=== PATIENT | male | born 1930 | race Caucasian/White ===

== ENCOUNTER → 2016-07-24 | Day surgery (SDC) | payer MEDICARE, OTHER ==
[~2016-07-24] MED LIST: ASCO500C PO; ASPI81TA82 PO; BUME1TAB PO; CALC0.25 PO; COZA100T PO; GENTAMICIN SULFATE 80 MG/2 ML VIAL ONE; GLUC10TA3 PO; HYDR100T2 PO; ISOS30TA3 PO; LACTATED RINGER'S 1000 ML INJ 1,000 ML ONE; NIAC250C6 PO; NS 100 ML (PAB BAG) 100 ML IV ONE; ONDANSETRON HCL 4 MG/2 ML VIAL IV PUSH ONE; POTA20IN3 PO; PROPOFOL 200 MG/20 ML AMP IV ONE; STERILE WATER FOR INJ 20 ML VIAL ONE; TAB-TAB PO; Z.0.OXYGENDME NC; mitoMYcin 5 MG VIAL ONE
--- NOTE | 2016-07-24 11:45 | TN ---
cc: SONG MENDEZ M.D. DATE OF SURGERY: 07/24/2016 PREOPERATIVE DIAGNOSIS Recurrent bladder cancer (ICD - 10 code C67.3) POSTOPERATIVE DIAGNOSIS 1. Procedure was cystourethroscopy with transurethral resection of bladder tumor (TURBT) second (CPT code 40305) 2. Intravesical placement of mitomycin C chemotherapy (CPT code 71726). INDICATION Mr. Sebastian is a 86-year-old gentleman recurrent bladder cancer on surveillance cystoscopy recent was found to have a suspicious lesion presents now for resection and intravesical chemotherapy consisting of mitomycin C. FINDINGS: The urethra shows multiple mild and moderate concentric strictures throughout mostly in the bulbous and bulbar membranous urethra. The prostatic urethra shows bilateral hyperplasia with moderate obstruction elevated bladder neck. The bladder neck itself is elevated hypertrophic and closed in the trigone shows a right ureteral orifice normal size, shape position. The left was previously resected but is effluxing clear urine as is the right. There is clearly multiple previous scars and distortion of some of the normal anatomy of the bladder from his previous resections. He has moderate trabeculation with diverticula and then there is the area of concern is a sessile lesion just inside the bladder neck at about the 2 to 3 o'clock position in the anterior bladder wall. It extends down laterally, just toward the trigone itself fairly large area of concern. No additional tanner papillary tumors or other suspicious mucosa identified. The procedure as well as risks and benefits were explained to the patient. Informed consent was obtained the patient was taken major operative theater where he was placed in supine position. The patient was identified as well as the operative site. A universal time-out was performed in standard fashion. At this time general anesthetic and prophylactic intravenous antibiotics consisting of gentamicin 80 mg was administered after adequate anesthetic he is placed in low dorsolithotomy position with a mild Trendelenburg, prepped and draped usual sterile fashion. At this time a 22.5 Indonesian cystoscope with a 30 lens was inserted urethra and bladder. A 30 lens was exchanged for 70 lens the entire bladder was systematically surveyed with the above findings. At this time the cystoscope was removed and a 27-Indonesian Carney resectoscope with a right angle loop was placed under direct vision into the bladder traversing the strictured areas with minimal difficulty. At this time using normal saline in the gyrus system transurethral resection of the suspicious areas and tumor was removed in standard fashion. Care was taken to the appropriate depth but not to perforate the bladder. Care was also taken not to come in close proximity to the ureteral orifice on the left which was relatively close to the area of resection. After confirming hemostasis and an fulgurating the base of the lesions with the coagulation mode of the gyrus system and confirming integrity of the bladder and no active bleeding the resectoscope was removed and a 16-Indonesian Fragoso catheter was placed without difficulty. The bladder was emptied and then the mitomycin C intravesical chemotherapy was administered in standard fashion with a 40 mg of mitomycin and 20 cc of sterile water. It was capped, this will be kept in and the recovery room for 1 hour changing positions every 15 minutes and then to be drained and removed prior to discharge. At this time after placement the patient was placed back in supine position, emerged from anesthetic without difficulty transferred to the recovery room to be discharged home after the chemotherapy dwell time 1 hour and to be discharged home without a catheter after voiding. MD JAY JAY [place]/flora /11:11 AM /11:38 AM
== END | disposition home or self-care (01) ==
LOC: ESDC 08:41
PROVIDERS: ATTEND Urology
DX: C67.3 Malignant neoplasm of anterior wall of bladder (principal)
CPT/HCPCS: 00910; 00912; 51720; 52234; 88307; J1580; J2405; J3010; J7120; J9280

== ENCOUNTER 2017-07-22 18:00 | Inpatient (IN) | payer MEDICARE, OTHER ==
[~2017-07-22] VITALS: Ht 182.9 cm; Wt 122.3 kg
[~2017-07-22 18:00] MED LIST changes: -GENTAMICIN SULFATE 80 MG/2 ML VIAL ONE; -LACTATED RINGER'S 1000 ML INJ 1,000 ML ONE; -NS 100 ML (PAB BAG) 100 ML IV ONE; -ONDANSETRON HCL 4 MG/2 ML VIAL IV PUSH ONE; -PROPOFOL 200 MG/20 ML AMP IV ONE; -STERILE WATER FOR INJ 20 ML VIAL ONE; -mitoMYcin 5 MG VIAL ONE
[2017-07-22 18:03] VITALS: BP 123/55; PULSE 67; RESP 32; TEMP 98.7; O2SAT 88
[2017-07-22] MEDS ORDERED: RESP: ALBUTEROL 2.5 MG/IPRATROPIUM 0.5 MG NEB (PRN) ONE (18:05)
[2017-07-22] MEDS ORDERED: DEXTROSE 50% IN WATER 50 ML SYRINGE ONE (18:05)
[2017-07-22] MEDS ORDERED: SODIUM CHLORIDE 0.9% FLUSH 10 ML FLUSH IVF PRN (18:15)
[2017-07-22] MEDS ORDERED: RESP: ALBUTEROL 2.5 MG/3 ML NEB (SCH) INH (18:15)
[2017-07-22] MEDS ORDERED: FUROSEMIDE 40 MG/4 ML VIAL IVP ONE (18:15)
[2017-07-22] MEDS ORDERED: DEXTROSE 50% IN WATER 50 ML SYRINGE IV PUSH ONE (18:15)
--- NOTE | 2017-07-22 18:26 | PD ---
HPI Chief Complaint: Respiratory Symptoms Time Seen by Provider: 18:11 Travel History International Travel<30 days: No Contact w/Intl Traveler<30days: No Traveled to known affect area: No History of Present Illness HPI 87-year-old male came to the emergency room brought by EMS for respiratory distress. Patient was getting his dialysis done at [facility] when he started developing shortness of breath. When EMS arrived his oxygen saturation was in the mid 80s. They also checked his blood sugar was in the 60s. They started giving him D10. Put him on a nonrebreather and brought him to the emergency room. Upon arrival patient appeared to be lethargic but was answering questions to some extent appropriately. He knew he was in [place]. Bedside blood sugar after arrival was 65. Oxygen saturation was 88% on room air. Patient appeared to be having difficulty breathing. He denied of any chest pain. [facility] Past Medical History Narrative Medical List of his past medical, surgical, social and family history is reviewed from the nursing note. Hx Anticoagulant Therapy: Yes (WARFARIN, ASA 81 MG DAILY) Arthritis: Yes Asthma: No Heart Rhythm Problems: No Cancer: Yes (bladder) Cardiomyopathy: Yes Cardiovascular Problems: Yes High Cholesterol: Yes Chemotherapy: Yes Chest Pain: No Congestive Heart Failure: Yes COPD: No Cerebrovascular Accident: No Coronary Artery Disease: Yes Diabetes: Yes Patient Takes Glucophage: No Dialysis: Yes (M-W-F) Diminished Hearing: Yes Endocrine: Yes GERD: No Genitourinary: Yes (RENAL INSUFICIENCY, bladder CX) Hiatal Hernia: No Hypertension: Yes Immune Disorder: No Implanted Vascular Access Dvce: Yes Kidney Stones: No Musculoskeletal: Yes Neurologic: No Psychiatric: No Reproductive: No Respiratory: Yes Migraines: No Radiation Therapy: No Renal Failure: Yes Seizures: No Sleep Apnea: Yes Thyroid Disease: No Ulcer: No Influenza Vaccination: Yes Past Surgical History AICD: Yes (medtronic) Cardiac Surgery: Yes (PACEMAKER) Eye Surgery: Yes (BILATERAL "FLUID REPLACEMENT" ) Insulin Pump: No Joint Replacement: Yes (left knee) Pacemaker: Yes Social History Alcohol Use: Yes (OCCASIONAL) Tobacco Use: Yes (3 CIGARS/DAY) Substance Use: No Allergies-Medications (Allergen,Severity, Reaction): Coded Allergies: No Known Allergies (Unverified , 04/11/16) Comments No known drug allergies. Reported Meds & Prescriptions Reported Meds & Active Scripts Active Oxygen (O2) (Z.0.oxygendme) Device 2 L NC CONTINUOUS Oxygen Concentrator Portable Gaseous 2 L/min via Nasal Cannula Continuous For 99 months Bumetanide 1 Mg Tab 1 Mg PO BID 30 Days Reported Cozaar (Losartan Potassium) 100 Mg Tab 100 Mg PO DAILY Cozaar (Losartan Potassium) 100 Mg Tab 100 Mg PO DAILY Vitamin C (Ascorbic Acid) 500 Mg Cap 500 Mg PO DAILY Niacin 250 Mg Cap 500 Mg PO ONCE Multivitamin (Multivitamins) 1 Tab Tab 1 Tab PO DAILY Hydralazine HCl 100 Mg Tab 100 Mg PO BID Aspir-81 (Aspirin) 81 Mg Tab 81 Mg PO DAILY Glipizide 10 Mg Tab 10 Mg PO DAILY Calcitriol 0.25 Mcg Cap 0.25 Mcg PO DAILY Potassium Chloride inj (Potassium Chloride) 20 Meq Tab 1 Tab PO DAILY Isosorbide Mononitrate Er (Isosorbide Mononitrate) 30 Mg Tab 30 Mg PO DAILY Narrative Medication List of his home medications reviewed from the nursing note. Review of Systems Except as stated in HPI: all other systems reviewed are Neg Respiratory: Positive: Shortness of Breath Physical Exam Narrative GENERAL: Lethargic but answering questions somewhat appropriately, moderate distress SKIN: Focused skin assessment warm/dry. Pale HEAD: Atraumatic. Normocephalic. EYES: Pupils equal and round. No scleral icterus. No injection or drainage. ENT: No nasal bleeding or discharge. Mucous membranes pink and moist. NECK: Trachea midline. No JVD. CARDIOVASCULAR: Regular rate and rhythm. No murmur appreciated. RESPIRATORY: Respiratory distress, using accessory muscles for breathing. Tachypnea GASTROINTESTINAL: Abdomen soft, non-tender, nondistended. Hepatic and splenic margins not palpable. : Circumcised, blood at the meatus MUSCULOSKELETAL: No obvious deformities. No clubbing. No cyanosis. No edema. NEUROLOGICAL: Lethargic but answering questions. No obvious cranial nerve deficits. Motor grossly within normal limits. Slurred speech. PSYCHIATRIC: Appropriate mood and affect; insight and judgment normal. Data Data Last Documented VS Vital Signs Date Time Temp Pulse Resp B/P (MAP) Pulse Ox O2 Delivery O2 Flow Rate FiO2 07/22/17 20:00 62 35 113/53 (73) 99 Simple Mask 5.00 07/22/17 18:03 98.7 Orders Orders Dextrose 50% In Chevy (Syr) Inj (D50w (Syr (07/22/17 18:05) Albuterol-Ipratropium Neb (Duoneb Neb) (07/22/17 18:05) Complete Blood Count With Diff (07/22/17 18:12) Basic Metabolic Panel (Bmp) (07/22/17 18:12) Prothrombin Time / Inr (Pt) (07/22/17 18:12) Troponin I (07/22/17 18:12) Arterial Blood Gas (Abg) (07/22/17 18:12) Urinalysis - C+S If Indicated (07/22/17 18:12) Iv Access Insert/Monitor (07/22/17 18:12) Electrocardiogram (07/22/17 18:12) Ecg Monitoring (07/22/17 18:12) Oximetry (07/22/17 18:12) Oxygen Administration (07/22/17 18:12) Chest, Single Ap (07/22/17 18:12) Sodium Chloride 0.9% Flush (Ns Flush) (07/22/17 18:15) Furosemide Inj (Lasix Inj) (07/22/17 18:15) Albuterol Neb (Albuterol Neb) (07/22/17 18:15) Dextrose 50% In [place]vy (Syr) Inj (D50w (Syr (07/22/17 18:15) Lactic Acid (07/22/17 18:54) Blood Culture (07/22/17 18:54) Piperacil-Tazo 4.5 Gm Premix (Zosyn 4.5 (07/22/17 19:00) Vancomycin Inj (Vancomycin Inj) (07/22/17 19:00) Ct Pulmonary Angiogram (07/22/17 ) Iohexol 350 Inj (Omnipaque 350 Inj) (07/22/17 20:20) Sodium Chlor 0.9% 1000 Ml Inj (Ns 1000 M (07/22/17 20:45) Admit Order (Ed Use Only) (07/22/17 ) Labs Laboratory Tests Test 07/22/17 18:25 07/22/17 19:08 07/22/17 19:20 White Blood Count 21.0 TH/MM3 Red Blood Count 2.99 MIL/MM3 Hemoglobin 8.9 GM/DL Hematocrit 27.8 % Mean Corpuscular Volume 92.8 FL Mean Corpuscular Hemoglobin 29.6 PG Mean Corpuscular Hemoglobin Concent 31.9 % Red Cell Distribution Width 18.8 % Platelet Count 165 TH/MM3 Mean Platelet Volume 7.5 FL Neutrophils (%) (Auto) 92.3 % Lymphocytes (%) (Auto) 1.4 % Monocytes (%) (Auto) 6.2 % Eosinophils (%) (Auto) 0.0 % Basophils (%) (Auto) 0.1 % Neutrophils # (Auto) 19.4 TH/MM3 Lymphocytes # (Auto) 0.3 TH/MM3 Monocytes # (Auto) 1.3 TH/MM3 Eosinophils # (Auto) 0.0 TH/MM3 Basophils # (Auto) 0.0 TH/MM3 CBC Comment DIFF FINAL Differential Comment Prothrombin Time 15.4 SEC Prothromb Time International Ratio 1.5 RATIO Blood Urea Nitrogen 28 MG/DL Creatinine 4.23 MG/DL Random Glucose 128 MG/DL Calcium Level 8.2 MG/DL Sodium Level 139 MEQ/L Potassium Level 5.2 MEQ/L Chloride Level 107 MEQ/L Carbon Dioxide Level 18.6 MEQ/L Anion Gap 13 MEQ/L Estimat Glomerular Filtration Rate 13 ML/MIN Troponin I 1.78 NG/ML Blood Gas Puncture Site RT BRACHIAL Blood Gas Patient Temperature 98.6 Blood Gas HCO3 12 mmol/L Blood Gas Base Excess -11.0 mmol/L Blood Gas Oxygen Saturation 92 % Arterial Blood pH 7.49 Arterial Blood Partial Pressure CO2 16 mmHg Arterial Blood Partial Pressure O2 72 mmHG Arterial Blood Oxygen Content 11.4 Vol % Arterial Blood Carboxyhemoglobin 2.2 % Arterial Blood Methemoglobin 0.6 % Blood Gas Hemoglobin 8.7 G/DL Oxygen Delivery Device NASAL CANNULA Blood Gas Liter Flow 3 L/M Lactic Acid Level 11.7 mmol/L MDM Medical Decision Making Medical Screen Exam Complete: Yes Emergency Medical Condition: Yes Medical Record Reviewed: Yes Interpretation(s) Twelve-lead EKG was reviewed by me. Paced rhythm. Heart rate of 60 bpm. Differential Diagnosis COPD exacerbation, pulmonary edema, pneumonia Narrative Course 6:26 PM awaiting for the blood test result. Patient was given 2 breathing treatments and a dose of Lasix IV. He was also given D50. Patient will need to be admitted. Case will be signed over to the oncoming ER physician. 7 PM case has been signed over to the oncoming ER physician. However CBC result came back and patient has significant leukocytosis. Based on the altered mental status and hypoglycemia I decided to cover him with antibiotic as per sepsis protocol. IV Zosyn and vancomycin has been ordered. Critical Care Narrative Aggregate critical care time was 30 minutes. Time to perform other separately billable procedures was not included in the critical care time. My time did not include minutes spent treating any other patients simultaneously or on activities that did not directly contribute to the patient's treatment. The services I provided to this patient were to treat and/or prevent clinically significant deterioration that could result in: Respiratory distress, altered mental status, sepsis, hypoglycemia I provided critical care services requiring my management, as noted below: Chart data review, documentation time, medication orders and management, vital sign assessments/reviewing monitor data, ordering and reviewing lab tests, ordering and interpreting/reviewing x-rays and diagnostic studies, care of the patient and discussion of the patient with the admitting physicians. Procedures EKG Prior to Arrival: Laura Sewell MD Jul 22, 2017 18:26
[2017-07-22 18:49] LABS: AUTOMATED NEUTROPHIL # 19.4 TH/MM3 (1.8-7.7); BASOPHIL % 0.1 % (0.0-2.0); HEMATOCRIT 27.8 % (39.0-51.0); HEMOGLOBIN 8.9 GM/DL (13.0-17.0); LYMPH % 1.4 % (9.0-44.0); LYMPHOCYTE # 0.3 TH/MM3 (1.0-4.8); MEAN CELL VOLUME 92.8 FL (80.0-100.0); MEAN CORPUSCULAR HEMOGLOBIN 29.6 PG (27.0-34.0); MEAN CORPUSCULAR HGB CONC 31.9 % (32.0-36.0); MEAN PLATELET VOLUME 7.5 FL (7.0-11.0); MONO % 6.2 % (0.0-8.0); MONOCYTE # 1.3 TH/MM3 (0-0.9); NEUT % 92.3 % (16.0-70.0); PLATELET COUNT 165 TH/MM3 (150-450); RED BLOOD COUNT 2.99 MIL/MM3 (4.50-5.90); RED CELL DISTRIBUTION WIDTH 18.8 % (11.6-17.2)
--- NOTE | 2017-07-22 18:52 | RADRPT ---
EXAM DATE/TIME: 07/22/2017 18:31 [facility] COMPARISON: No previous studies available for comparison. INDICATIONS : Short of breath. MEDICAL HISTORY : SURGICAL HISTORY : Pacemaker. ENCOUNTER: Initial ACUITY: 1 day PAIN SCORE: 0/10 LOCATION: Bilateral chest FINDINGS: A single view of the chest demonstrates a left subclavian multi-lead pacer. The heart is enlarged. Th ere is mild lung volume loss bilaterally. I do not see focal infiltrate.. Osseous structures are int act. CONCLUSION: Left subclavian bipolar pacer. The heart is enlarged. Lungs are clear. Cole Leach MD on July 22, 2017 at 18:49 Board Certified Radiologist. This report was verified electronically.
[2017-07-22 18:57] LABS: INTERNATIONAL NORMALIZED RATIO 1.5 RATIO; PROTHROMBIN TIME - PATIENT 15.4 SEC (9.8-11.6)
[2017-07-22] MEDS ORDERED: PIPERACIL-TAZO 4.5 GM PREMIX 100 ML IV ONE (19:00)
[2017-07-22] MEDS ORDERED: VANCOMYCIN INJ 1,000 MG in SODIUM CHLOR 0.9% 250 ML INJ 250 ML IV ONE (19:00)
[2017-07-22 19:18] LABS: BICARBONATE 18.6 MEQ/L (21.0-32.0); CALCIUM 8.2 MG/DL (8.5-10.1); CREATININE 4.23 MG/DL (0.60-1.30)
[2017-07-22 19:31] LABS: TROPONIN I 1.78 NG/ML (0.02-0.05)
[2017-07-22 20:00] VITALS: BP 113/53; PULSE 62; RESP 35; O2SAT 99
[2017-07-22] MEDS ORDERED: IOHEXOL 350 MG/ML 10 ML VIAL (for RAD DIAG) IVCONTRAST ONE (20:20)
--- NOTE | 2017-07-22 20:32 | RADRPT ---
EXAM DATE/TIME: 07/22/2017 20:01 [facility] COMPARISON: No previous studies available for comparison. INDICATIONS : Shortness of breath today. IV CONTRAST: 61 cc Omnipaque 350 (iohexol) IV RADIATION DOSE: 10.81 CTDIvol (mGy) MEDICAL HISTORY : Hypertension. diabetes SURGICAL HISTORY : Pacemaker. ENCOUNTER: Initial ACUITY: 1 day PAIN SCALE: 0/10 LOCATION: Bilateral chest TECHNIQUE: Volumetric scanning of the chest was performed using a pulmonary embolism protocol MIP images were re constructed. Using automated exposure control and adjustment of the mA and/or kV according to patien t size, radiation dose was kept as low as reasonably achievable to obtain optimal diagnostic quality images. DICOM format image data is available electronically for review and comparison. Follow-up recommendations for detected pulmonary nodules are based at a minimum on nodule size and pa tient risk factors according to Fleischner Society Guidelines. FINDINGS: PULMONARY ARTERIES: No filling defects are seen in the pulmonary arteries through the segmental level. LUNGS: There is no consolidation or pneumothorax . No concerning pulmonary nodule is visualized. Mild adjac ent passive atelectasis PLEURAE: There is no pleural thickening. Small bilateral pleural effusions. MEDIASTINUM: There is good visualization of the great vessels of the middle mediastinum. A few prominent mediastin al lymph nodes without any definite pathologic enlargement. MUSCULOSKELETAL: Within normal limits for patient age. MISCELLANEOUS: The visualized upper abdominal organs demonstrate no acute abnormality. CONCLUSION: No evidence of pulmonary embolism. Small bilateral pleural effusions. Cole Leach MD on July 22, 2017 at 20:29 Board Certified Radiologist. This report was verified electronically.
[2017-07-22] MEDS ORDERED: SODIUM CHLOR 0.9% 1000 ML INJ 1,000 ML IV ONE ×3 (20:45→21:04)
--- NOTE | 2017-07-22 20:49 | PD ---
Data Data Last Documented VS Vital Signs Date Time Temp Pulse Resp B/P (MAP) Pulse Ox O2 Delivery O2 Flow Rate FiO2 07/22/17 20:00 62 35 113/53 (73) 99 Simple Mask 5.00 07/22/17 18:03 98.7 Orders Orders Dextrose 50% In Cehvy (Syr) Inj (D50w (Syr (07/22/17 18:05) Albuterol-Ipratropium Neb (Duoneb Neb) (07/22/17 18:05) Complete Blood Count With Diff (07/22/17 18:12) Basic Metabolic Panel (Bmp) (07/22/17 18:12) Prothrombin Time / Inr (Pt) (07/22/17 18:12) Troponin I (07/22/17 18:12) Arterial Blood Gas (Abg) (07/22/17 18:12) Urinalysis - C+S If Indicated (07/22/17 18:12) Iv Access Insert/Monitor (07/22/17 18:12) Electrocardiogram (07/22/17 18:12) Ecg Monitoring (07/22/17 18:12) Oximetry (07/22/17 18:12) Oxygen Administration (07/22/17 18:12) Chest, Single Ap (07/22/17 18:12) Sodium Chloride 0.9% Flush (Ns Flush) (07/22/17 18:15) Furosemide Inj (Lasix Inj) (07/22/17 18:15) Albuterol Neb (Albuterol Neb) (07/22/17 18:15) Dextrose 50% In Chevy (Syr) Inj (D50w (Syr (07/22/17 18:15) Lactic Acid (07/22/17 18:54) Blood Culture (07/22/17 18:54) Piperacil-Tazo 4.5 Gm Premix (Zosyn 4.5 (07/22/17 19:00) Vancomycin Inj (Vancomycin Inj) (07/22/17 19:00) Ct Pulmonary Angiogram (07/22/17 ) Iohexol 350 Inj (Omnipaque 350 Inj) (07/22/17 20:20) Sodium Chlor 0.9% 1000 Ml Inj (Ns 1000 M (07/22/17 20:45) Admit Order (Ed Use Only) (07/22/17 ) Labs Laboratory Tests Test 07/22/17 18:25 07/22/17 19:08 07/22/17 19:20 White Blood Count 21.0 TH/MM3 Red Blood Count 2.99 MIL/MM3 Hemoglobin 8.9 GM/DL Hematocrit 27.8 % Mean Corpuscular Volume 92.8 FL Mean Corpuscular Hemoglobin 29.6 PG Mean Corpuscular Hemoglobin Concent 31.9 % Red Cell Distribution Width 18.8 % Platelet Count 165 TH/MM3 Mean Platelet Volume 7.5 FL Neutrophils (%) (Auto) 92.3 % Lymphocytes (%) (Auto) 1.4 % Monocytes (%) (Auto) 6.2 % Eosinophils (%) (Auto) 0.0 % Basophils (%) (Auto) 0.1 % Neutrophils # (Auto) 19.4 TH/MM3 Lymphocytes # (Auto) 0.3 TH/MM3 Monocytes # (Auto) 1.3 TH/MM3 Eosinophils # (Auto) 0.0 TH/MM3 Basophils # (Auto) 0.0 TH/MM3 CBC Comment DIFF FINAL Differential Comment Prothrombin Time 15.4 SEC Prothromb Time International Ratio 1.5 RATIO Blood Urea Nitrogen 28 MG/DL Creatinine 4.23 MG/DL Random Glucose 128 MG/DL Calcium Level 8.2 MG/DL Sodium Level 139 MEQ/L Potassium Level 5.2 MEQ/L Chloride Level 107 MEQ/L Carbon Dioxide Level 18.6 MEQ/L Anion Gap 13 MEQ/L Estimat Glomerular Filtration Rate 13 ML/MIN Troponin I 1.78 NG/ML Blood Gas Puncture Site RT BRACHIAL Blood Gas Patient Temperature 98.6 Blood Gas HCO3 12 mmol/L Blood Gas Base Excess -11.0 mmol/L Blood Gas Oxygen Saturation 92 % Arterial Blood pH 7.49 Arterial Blood Partial Pressure CO2 16 mmHg Arterial Blood Partial Pressure O2 72 mmHG Arterial Blood Oxygen Content 11.4 Vol % Arterial Blood Carboxyhemoglobin 2.2 % Arterial Blood Methemoglobin 0.6 % Blood Gas Hemoglobin 8.7 G/DL Oxygen Delivery Device NASAL CANNULA Blood Gas Liter Flow 3 L/M Lactic Acid Level 11.7 mmol/L [facility] Supervised Visit with THEODORE: No Narrative Course Patient care assumed from Dr. Hardy at 1900, this is an 87-year-old diabetic high blood pressure male who presents the emergency department for evaluation of respiratory distress. According to his son who is at the bedside the patient started having severe respiratory distress earlier today, he went for his regular scheduled dialysis and despite having his normal dialysis session and fluid removed the patient remained tachypneic and slightly altered, EMS was therefore called from the dialysis center. The blood glucose was somewhat decreased in the 60s the patient received D10 prior to arrival, D50 1 arrival to the emergency department. This seemed to improve his mental status. On my examination the patient is tachypneic with increased work of breathing, and ABG shows respiratory alkalosis with compensatory metabolic acidosis. Patient has a lactic acid Nexus of 11. He does appear dry and a liter of normal saline was ordered. Artery had vancomycin and Zosyn ordered by Dr. Hardy. Chest x-ray was negative UA still pending at this time. His abdomen is completely benign, a CT PE protocol was added after discussion with Dr. Hardy and showed no acute pulmonary embolism and no obvious consolidation. Patient appears septic despite having no fever. Possible sources or bacteremia secondary to hemodialysis, urinary tract infection. Patient given a liter of fluid, however more aggressive fluid resuscitation could be dangerous in this patient who is dialysis dependent. His son does not know if he makes urine at baseline. He does have a history of bladder cancer and some blood was noted at the urethral meatus. Patient is moving all 4 extremities, no obvious cranial nerve abnormality. Patient will be discussed with Dr. Almendarez for admission to the ICU, patient is critically ill and prognosis is guarded. Diagnosis Primary Impression: Sepsis Additional Impressions: Elevated troponin Acute respiratory failure with hypoxia Severe sepsis Pleural effusion Lactic acidosis Admitting Information Admitting Physician Requests: Admit Condition: Critical Guilherme Burton MD Jul 22, 2017 20:49
--- NOTE | 2017-07-22 21:01 | HHI.HP ---
HPI Service Critical Care Medicine Primary Care Physician Bharathi Mcdowell MD Admission Diagnosis Sepsis, Lactic acidosis, hypoxic respiratory failure. Diagnosis: Travel History International Travel<30 Days: No Contact w/Intl Traveler <30 Da: No Traveled to Known Affected Are: No History of Present Illness 87-year-old very pleasant gentleman presents for respiratory distress. Patient was getting his dialysis done at [facility] when he started developing shortness of breath. When EMS arrived his oxygen saturation was in the mid 80s. They also checked his blood sugar was in the 60s. They started giving him D10. Put him on a nonrebreather and brought him to the emergency room. Upon arrival patient appeared to be lethargic but was answering questions to some extent appropriately. Bedside blood sugar after arrival was 65. Oxygen saturation was 88% on room air. His mental status somewhat improved after IV glucose insertion , however he remains tachypneic. The CT angiogram of the chest ruled out acute pulmonary embolism, and other acute respiratory disorder. The CT of the abdomen shows severe hydronephrosis with a mass at the urethral vesicular junction and hydroureter. Patient is on Coumadin at home however neither him nor his son are aware why. He also had a permanent pacemaker placed 6 months ago. Review of Systems Constitutional: COMPLAINS OF: Diaphoretic episodes, Fatigue, Dizziness, DENIES : Fever, Weight gain, Weight loss, Chills, Change in appetite, Night Sweats Endocrine: DENIES: Heat/cold intolerance, Polydipsia, Polyuria, Polyphagia Eyes: DENIES: Blurred vision, Diplopia, Eye inflammation, Eye pain, Vision loss , Photosensitivity, Double Vision Ears, nose, mouth, throat: DENIES: Tinnitus, Hearing loss, Vertigo, Nasal discharge, Oral lesions, Throat pain, Hoarseness, Ear Pain, Running Nose, Epistaxis, Sinus Pain, Toothache, Odynophagia Respiratory: COMPLAINS OF: Shortness of breath, DENIES: Apneas, Cough, Snoring , Wheezing, Hemoptysis, Sputum production Cardiovascular: DENIES: Chest pain, Palpitations, Syncope, Dyspnea on Exertion , PND, Lower Extremity Edema, Orthopnea, Claudication Gastrointestinal: DENIES: Abdominal pain, Black stools, Bloody stools, Constipation, Diarrhea, Nausea, Vomiting, Difficulty Swallowing, Anorexia Genitourinary: DENIES: Sexual dysfunction, Urinary frequency, Urinary incontinence, Urgency, Hematuria, Dysuria, Nocturia, Penile Discharge, Testicular Pain, Testicular Swelling Musculoskeletal: DENIES: Joint pain, Muscle aches, Stiffness, Joint Swelling, Back pain, Neck pain Integumentary: DENIES: Abnormal pigmentation, Nail changes, Pruritus, Rash Hematologic/lymphatic: DENIES: Bruising, Lymphadenopathy Immunologic/allergic: DENIES: Eczema, Urticaria Neurologic: COMPLAINS OF: Abnormal gait, Poor Balance, DENIES: Headache, Localized weakness, Paresthesias, Seizures, Speech Problems, Tremor Psychiatric: DENIES: Anxiety, Confusion, Mood changes, Depression, Hallucinations, Agitation, Suicidal Ideation, Homicidal Ideation, Delusions Past Family Social History Allergies: Coded Allergies: No Known Allergies (Unverified , 04/11/16) Past Medical History Hypertension Hyperlipidemia End-stage renal disease on dialysis Permanent pacemaker in place Tobacco use Diabetes mellitus Past Surgical History Cataract surgery Permanent pacemaker placement Bladder surgery for recurrent cancer 8 Right knee replacement Reported Medications Reported Meds & Active Scripts Active Oxygen (O2) (Z.0.oxygendme) Device 2 L NC CONTINUOUS Oxygen Concentrator Portable Gaseous 2 L/min via Nasal Cannula Continuous For 99 months Bumetanide 1 Mg Tab 1 Mg PO BID 30 Days Reported Cozaar (Losartan Potassium) 100 Mg Tab 100 Mg PO DAILY Cozaar (Losartan Potassium) 100 Mg Tab 100 Mg PO DAILY Vitamin C (Ascorbic Acid) 500 Mg Cap 500 Mg PO DAILY Niacin 250 Mg Cap 500 Mg PO ONCE Multivitamin (Multivitamins) 1 Tab Tab 1 Tab PO DAILY Hydralazine HCl 100 Mg Tab 100 Mg PO BID Aspir-81 (Aspirin) 81 Mg Tab 81 Mg PO DAILY Glipizide 10 Mg Tab 10 Mg PO DAILY Calcitriol 0.25 Mcg Cap 0.25 Mcg PO DAILY Potassium Chloride inj (Potassium Chloride) 20 Meq Tab 1 Tab PO DAILY Isosorbide Mononitrate Er (Isosorbide Mononitrate) 30 Mg Tab 30 Mg PO DAILY Active Ordered Medications Current Medications Medications (Trade) Dose Ordered Sig/Juan Diego Route PRN Reason Start Time Stop Time Status Last Admin Dose Admin Aspirin (Aspirin Chew) 81 mg DAILY PO 07/23/17 09:00 Bumetanide (Bumetanide) 1 mg BID PO 07/23/17 09:00 Calcitriol (Rocaltrol) 0.25 mcg DAILY PO 07/23/17 09:00 Multivitamins (Theragran) 1 tab DAILY PO 1/9/18 09:00 Ascorbic Acid (Vitamin C) 500 mg DAILY PO 07/23/17 09:00 Sodium Chloride 1,000 ml @ 84 mls/hr [id number] IV 07/22/17 21:04 Sodium Chloride (NS Flush) 2 ml UNSCH PRN IV FLUSH FLUSH AFTER USING IV ACCESS 07/22/17 21:15 Sodium Chloride (NS Flush) 2 ml BID IV FLUSH 07/23/17 09:00 Acetaminophen (Tylenol) 650 mg Q6H PRN PO PAIN 1-5 AND/OR FEVER >101F 07/22/17 21:15 Morphine Sulfate (Morphine Inj) 2 mg Q2H PRN IV PUSH PAIN SCALE 6 TO 10 07/22/17 21:15 Famotidine (Pepcid Inj) 20 mg Q12HR IV PUSH 07/23/17 09:00 Ondansetron HCl (Zofran Inj) 4 mg Q6H PRN IV PUSH NAUSEA OR VOMITING 07/22/17 21:15 Albuterol/ Ipratropium (Duoneb Neb) 1 ampule Q6HR NEB INH 07/22/17 22:00 Albuterol/ Ipratropium (Duoneb Neb) 1 ampule Q2HR NEB PRN INH WHEEZING 07/22/17 21:15 Heparin Sodium (Porcine) (Heparin Inj) 5,000 units Q8H SQ 07/22/17 21:15 Miscellaneous Information 1 [id number] XX 07/22/17 21:15 Chlorhexidine Gluconate (Chlorhexidine 2% Cloth) 3 pack Taper DAILY@04 TOP 07/23/17 04:00 07/19/18 03:59 Chlorhexidine Gluconate (Chlorhexidine 2% Cloth) 3 pack UNSCH PRN TOP HYGIENIC CARE 07/22/17 21:15 Senna/Docusate Sodium (Anabela-Colace) 1 tab BID PO 07/23/17 09:00 Magnesium Hydroxide (Milk Of Magnesia Liq) 30 ml Q12H PRN PO Mild constipation 07/22/17 21:15 Sennosides (Senokot) 17.2 mg Q12H PRN PO Moderate constipation 07/22/17 21:15 Bisacodyl (Dulcolax Supp) 10 mg DAILY PRN RECTAL SEVERE CONSITIPATION/ IF NPO 07/22/17 21:15 Lactulose (Lactulose Liq) 30 ml DAILY PRN PO SEVERE CONSITIPATION/ IF PO 07/22/17 21:15 Pharmacy Profile Note 0 ml @ 0 mls/hr UNSCH OTHER 07/22/17 21:15 Piperacillin Sod/ Tazobactam Sod 50 ml @ 200 mls/hr Q6H IV 07/23/17 02:00 Family History Mother and father at early age, he does not know if they have any medical conditions Social History Patient used to smoke 3 cigars daily, but has not smoked in 4 days. Alcohol occasionally. Denies any illicit drugs. Physical Exam Vital Signs Vital Signs Date Time Temp Pulse Resp B/P (MAP) Pulse Ox O2 Delivery O2 Flow Rate FiO2 07/22/17 20:00 62 35 113/53 (73) 99 Simple Mask 5.00 07/22/17 18:42 Nasal Cannula 2.00 07/22/17 18:09 Nasal Cannula 2.00 07/22/17 18:03 98.7 67 32 123/55 (77) 88 Physical Exam GENERAL: Lethargic but answering questions somewhat appropriately, moderate distress, tachypneic SKIN: Focused skin assessment warm/dry. Pale HEAD: Atraumatic. Normocephalic. EYES: Pupils equal and round. No scleral icterus. No injection or drainage. ENT: No nasal bleeding or discharge. Mucous membranes pink and moist. NECK: Trachea midline. No JVD. CARDIOVASCULAR: Regular rate and rhythm. No murmur appreciated. RESPIRATORY: Respiratory distress, using accessory muscles for breathing. Tachypnea GASTROINTESTINAL: Abdomen soft, non-tender, nondistended. Hepatic and splenic margins not palpable. : Circumcised, blood at the meatus MUSCULOSKELETAL: No obvious deformities. No clubbing. No cyanosis. No edema. NEUROLOGICAL: Lethargic but answering questions. No obvious cranial nerve deficits. Motor grossly within normal limits. Slurred speech. Laboratory Laboratory Tests Test 07/22/17 18:25 07/22/17 19:08 07/22/17 19:20 White Blood Count 21.0 Red Blood Count 2.99 Hemoglobin 8.9 Hematocrit 27.8 Mean Corpuscular Volume 92.8 Mean Corpuscular Hemoglobin 29.6 Mean Corpuscular Hemoglobin Concent 31.9 Red Cell Distribution Width 18.8 Platelet Count 165 Mean Platelet Volume 7.5 Neutrophils (%) (Auto) 92.3 Lymphocytes (%) (Auto) 1.4 Monocytes (%) (Auto) 6.2 Eosinophils (%) (Auto) 0.0 Basophils (%) (Auto) 0.1 Neutrophils # (Auto) 19.4 Lymphocytes # (Auto) 0.3 Monocytes # (Auto) 1.3 Eosinophils # (Auto) 0.0 Basophils # (Auto) 0.0 CBC Comment DIFF FINAL Differential Comment Prothrombin Time 15.4 Prothromb Time International Ratio 1.5 Blood Urea Nitrogen 28 Creatinine 4.23 Random Glucose 128 Calcium Level 8.2 Sodium Level 139 Potassium Level 5.2 Chloride Level 107 Carbon Dioxide Level 18.6 Anion Gap 13 Estimat Glomerular Filtration Rate 13 Troponin I 1.78 Blood Gas Puncture Site RT BRACHIAL Blood Gas Patient Temperature 98.6 Blood Gas HCO3 12 Blood Gas Base Excess -11.0 Blood Gas Oxygen Saturation 92 Arterial Blood pH 7.49 Arterial Blood Partial Pressure CO2 16 Arterial Blood Partial Pressure O2 72 Arterial Blood Oxygen Content 11.4 Arterial Blood Carboxyhemoglobin 2.2 Arterial Blood Methemoglobin 0.6 Blood Gas Hemoglobin 8.7 Oxygen Delivery Device NASAL CANNULA Blood Gas Liter Flow 3 Lactic Acid Level 11.7 Date/Time Source Procedure Growth Status 07/22/17 19:30 Blood Peripheral Aerobic Blood Culture Pending Received 07/22/17 19:30 Blood Peripheral Anaerobic Blood Culture Pending Received Result Diagram: 07/22/17182407/22/17 1825 Imaging Last 24 hours Impressions Chest X-Ray 07/22/17 1812 Signed Impressions: Service Date/Time: Saturday, July 22, 2017 18:31 - CONCLUSION: Left subclavian bipolar pacer. The heart is enlarged. Lungs are clear. Cole Leach MD Septic Shock Reassessment Septic shock perfusion: reassessment completed Caprini VTE Risk Assessment Caprini VTE Risk Assessment: Mod/High Risk (score >= 2) Caprini Risk Assessment Model Point Value = 1 Point Value = 2 Point Value = 3 Point Value = 5 Age 41-60 Minor surgery BMI > 25 kg/m2 Swollen legs Varicose veins or History of unexplained or recurrent spontaneous Oral contraceptives or hormone replacement Sepsis (< 1 month) Serious lung disease, including pneumonia (< 1 month) Abnormal pulmonary function Acute myocardial infarction Congestive heart failure (< 1 month) History of inflammatory bowel disease Medical patient at bed rest Age 61-74 Arthroscopic surgery Major open surgery (> 45 min) Laparoscopic surgery (> 45 min) Malignancy Confined to bed (> 72 hours) Immobilizing plaster cast Central venous access Age >= 75 History of VTE Family history of VTE Factor V Leiden Prothrombin [id number] Lupus anticoagulant Anticardiolipin antibodies Elevated serum homocysteine Heparin-induced thrombocytopenia Other congenital or acquired thrombophilia Stroke (< 1 month) Elective arthroplasty Hip, pelvis, or leg fracture Acute spinal cord injury (< 1 month) Prophylaxis Regimen Total Risk Factor Score Risk Level Prophylaxis Regimen 0-1 Low Early ambulation 2 Moderate Order ONE of the following: *Sequential Compression Device (SCD) *Heparin 5000 units SQ BID 3-4 Higher Order ONE of the following medications: *Heparin 5000 units SQ TID *Enoxaparin/Lovenox 40 mg SQ daily (WT < 150 kg, CrCl > 30 mL/min) *Enoxaparin/Lovenox 30 mg SQ daily (WT < 150 kg, CrCl > 10-29 mL/min) *Enoxaparin/Lovenox 30 mg SQ BID (WT < 150 kg, CrCl > 30 mL/min) AND/OR *Sequential Compression Device (SCD) 5 or more Highest Order ONE of the following medications: *Heparin 5000 units SQ TID (Preferred with Epidurals) *Enoxaparin/Lovenox 40 mg SQ daily (WT < 150 kg, CrCl > 30 mL/min) *Enoxaparin/Lovenox 30 mg SQ daily (WT < 150 kg, CrCl > 10-29 mL/min) *Enoxaparin/Lovenox 30 mg SQ BID (WT < 150 kg, CrCl > 30 mL/min) AND *Sequential Compression Device (SCD) Assessment and Plan Assessment and Plan Severe sepsis - Urethral obstruction at ureterovesical junction - Broad-spectrum antibiotics - Blood cultures, urine cultures - Aggressive IV fluids resuscitation - Centerline placement - Levophed to keep MEP above 65 - Infectious disease consultation Hydronephrosis - Obstructing mass at the UV junction - IR consultation stat for nephrostomy tube - Further management per urology End-stage renal disease - Hemodialysis per nephrology Troponinemia - No chest pain - No EKG changes suggestive acute coronary syndrome - Monitor trend - 2-D echo - Cardiology consultation Respiratory failure - Tachypnea - Compensating severe metabolic acidosis - O2 supply to keep sats above 92 Diabetes mellitus - Hold by mouth meds due to lactic acidosis - Insulin sliding scale Hypoglycemia - Due to sepsis - D50 IV when necessary DVT GI prophylaxis - Teds SCDs - Subcutaneous heparin - Pepcid Critical Care: The total critical care time was 35 minutes. Time to perform other separately billable procedures was not included in the critical care time. Rizwan Almendarez MD Jul 22, 2017 21:01
[2017-07-22] MEDS ORDERED: SODIUM CHLOR 0.9% 1000 ML INJ 1,000 ML IV SCH (21:04)
[2017-07-22] MEDS ORDERED: SODIUM CHLOR 0.9% 1000 ML INJ 100 ML IV ONE (21:04)
[2017-07-22] MEDS ORDERED: PIPERACIL-TAZO 4.5 GM PREMIX 100 ML IV SCH (21:15)
[2017-07-22] MEDS ORDERED: Vancomycin Consult Pharmacy 1 EA OTHER SCH (21:15)
[2017-07-22] MEDS ORDERED: BISACODYL 10 MG SUPP RECTAL PRN (21:15)
[2017-07-22] MEDS ORDERED: ONDANSETRON HCL 4 MG/2 ML VIAL IV PUSH PRN (21:15)
[2017-07-22] MEDS ORDERED: SODIUM CHLORIDE 0.9% FLUSH 10 ML FLUSH IV FLUSH PRN ×2 (21:15)
[2017-07-22] MEDS ORDERED: MORPHINE SULFATE 2 MG/ML INJ IV PUSH PRN (21:15)
[2017-07-22] MEDS ORDERED: RESP: ALBUTEROL 2.5 MG/IPRATROPIUM 0.5 MG NEB (PRN) INH (21:15)
[2017-07-22] MEDS ORDERED: MAGNESIUM HYDROXIDE SUSP 30 ML CUP PO PRN (21:15)
[2017-07-22] MEDS ORDERED: CHLORHEXIDINE GLUCONATE 2 % 1 PACK (2 CLOTHS) TOP PRN (21:15)
[2017-07-22] MEDS ORDERED: SENNOSIDES 8.6 MG TAB PO PRN (21:15)
[2017-07-22] MEDS: HEPARIN SODIUM - SQ 10,000 UNITS/ML VIAL SQ SCH (21:15)
[2017-07-22] MEDS ORDERED: LACTULOSE SYRUP 20 GM/30 ML CUP PO PRN (21:15)
[2017-07-22] MEDS ORDERED: ACETAMINOPHEN 325 MG TAB PO PRN (21:15)
[2017-07-22] MEDS ORDERED: MISCELLANEOUS NURSING INFORMATION XX SCH (21:15)
--- NOTE | 2017-07-22 22:01 | RADRPT ---
EXAM DATE/TIME: 07/22/2017 21:30 [facility] COMPARISON: CT ABDOMEN & PELVIS W/O CONTRAST, February 22, 2016, 14:29. INDICATIONS : Fever and shortness of breath. ORAL CONTRAST: No oral contrast ingested. RADIATION DOSE: 19.71 CTDIvol (mGy) MEDICAL HISTORY : Hypertension. Renal failure, chronic. Diabetes SURGICAL HISTORY : Pacemaker. ENCOUNTER: Initial ACUITY: 1 day PAIN SCALE: 0/10 LOCATION: abdomen TECHNIQUE: Volumetric scanning of the abdomen and pelvis was performed. Using automated exposure control and ad justment of the mA and/or kV according to patient size, radiation dose was kept as low as reasonably achievable to obtain optimal diagnostic quality images. DICOM format image data is available electro nically for review and comparison. FINDINGS: LOWER LUNGS: Moderate-sized bilateral pleural effusions left greater than right. The heart is enlarged. LIVER: Homogeneous density without lesion. There is no dilation of the biliary tree. No calcified gallston es. SPLEEN: Normal size without lesion. PANCREAS: Within normal limits. KIDNEYS: There is severe hydronephrosis of the left kidney with a prominent hydroureter. The ureter is dilated all the way down to the left UVJ. Where there is a mass. Small complex cyst lower pole right kidney is unchanged ADRENAL GLANDS: Within normal limits. VASCULAR: There is no aortic aneurysm. 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 ABDOMINAL WALL: Within normal limits. RETROPERITONEUM: There is no lymphadenopathy. BLADDER: No wall thickening or mass. REPRODUCTIVE: Within normal limits. INGUINAL: There is no lymphadenopathy or hernia. MUSCULOSKELETAL: Within normal limits for patient age. CONCLUSION: Severe hydronephrosis of the left kidney with a dilated hydroureter. There is a left-sided UVJ mass c ausing obstruction of left kidney. The heart is enlarged with a pacemaker in place. No evidence of bowel obstruction. Small bilateral pl eural effusions. Cole Leach MD on July 22, 2017 at 21:55 Board Certified Radiologist. This report was verified electronically.
[2017-07-22 23:00] VITALS: BP 94/55; PULSE 62; RESP 24; TEMP 100.3; O2SAT 95
[2017-07-22 23:10] LABS: LACTIC ACID SEPSIS PROTOCOL 9.3 mmol/L (0.4-2.0)
[2017-07-22] MEDS: NOREPINEPHRINE 4 MG/D5W 250 ML IV PRN (23:15)
[2017-07-22] MEDS ORDERED: GLUCAGON 1 MG/ML VIAL OTHER PRN (23:30)
[2017-07-22] MEDS: DEXTROSE 50% IN WATER 50 ML VIAL(D50) IV PUSH PRN (23:38)
[2017-07-23] VITALS (20 sets, daily range): BP systolic 94–122; BP diastolic 50–56; PULSE 59–105; RESP 14–20; TEMP 97.8–98.7; O2SAT 0–100
--- NOTE | 2017-07-23 00:09 | PD.PROCEDR ---
Procedure Note Procedure Centerline placement A time-out was completed verifying correct patient, procedure, site, positioning , and special equipment if applicable. The patient was placed in a dependent position appropriate for central line placement based on the vein to be cannulated. The patients right neck was prepped and draped in sterile fashion. 1% Lidocaine was used to anesthetize the surrounding skin area. A triple lumen 9 -[place] catheter was introduced into the the internal jugular vein using the Seldinger technique and under ultrasound guidance. The catheter was threaded smoothly over the guide wire and appropriate blood return was obtained. Each lumen of the catheter was evacuated of air and flushed with sterile saline. The catheter was then sutured in place to the skin and a sterile dressing applied. Perfusion to the extremity distal to the point of catheter insertion was checked and found to be adequate. Estimated Blood Loss: 1ml The patient tolerated the procedure well and there were no complications. Rizwan Almendarez MD Jul 23, 2017 00:09
--- NOTE | 2017-07-23 00:41 | RADRPT ---
EXAM DATE/TIME: 07/23/2017 00:25 [facility] COMPARISON: CHEST SINGLE AP, July 22, 2017, 18:31. INDICATIONS : Central line placement. MEDICAL HISTORY : None. SURGICAL HISTORY : Pacemaker. ENCOUNTER: Initial ACUITY: 1 day PAIN SCORE: 0/10 LOCATION: Bilateral chest FINDINGS: Right subclavian central line with tip in the very proximal right atrium. No significant pneumothorax . Cardiac silhouette is enlarged. Stable trace bilateral pleural effusions. Remainder of the exam is unchanged. CONCLUSION: 1. Right subclavian central line in good position without pneumothorax. Miki Rich MD on July 23, 2017 at 0:38 Board Certified Radiologist. This report was verified electronically.
[2017-07-23 00:50] LABS: BACTERIA, URINE FEW /hpf; BILIRUBIN, URINE NEG (NEG); BLOOD, URINE LARGE (NEG); GLUCOSE,URINE NEG (NEG); KETONE, URINE TRACE mg/dL (NEG); MUCUS URINE FEW /lpf (OCC); NITRITE,URINE NEG (NEG); PH, URINE 5.5 (5.0-8.5); URINE LEUKOCYTE ESTERASE LARGE (NEG); WHITE BLOOD CELL CLUMPS MANY
[2017-07-23 00:51] LABS: URINE COLOR RED (YELLW/STRAW)
--- NOTE | 2017-07-23 01:21 | HHI.PR ---
Addendum to Inpatient Note Addendum Reason: Additional Documentation Additional Information Resident team was paged for CODE BLUE at [phone] on this 87-year-old gentleman who was admitted on the night of 07/22 for respiratory distress and severe sepsis with urethral obstruction. Patient was being prepped for a nephrostomy tube placement when he suddenly stopped breathing. Had been on a partial rebreather at that time. Pulses were not palpable and CPR was started. Monitor showed PEA. Patient was intubated and received 2 doses of epinephrine, 1 dose of Bicarb and Calcium before pulses returned. Resident team arrived at roughly 0105 after pulses had returned. At that time patients HR was in the 60's, BP 160/70. Dr. Almendarez arrived shortly thereafter and placed an arterial line. Patient was stable at that time and plan for nephrostomy tube placement was resumed. Patient was admitted by Dr. Almendarez and will return to the ICU following the procedure. Casper Steel MD R1 Jul 23, 2017 01:21
[2017-07-23] MEDS ORDERED: MIDAZOLAM HCL 2 MG/2 ML VIAL ONE (01:24)
--- NOTE | 2017-07-23 01:38 | PD.RAD ---
Post Procedure Progress Note Pre Procedure Diagnosis: (1) Bladder cancer (2) Severe sepsis Post Procedure Diagnosis: (1) Severe sepsis Procedure Date: Jul 23, 2017 Supervising Radiologist: Miki Rich Proceduralist/Assist: Charisma Garnica, RT(R), Maryam Vazquez, RT(R)(CV) Anesthesia: Local Plan of Activity Patient to Unit: Critical Care Patient Condition: Critical Additional Comments: urine is straw colored. sample for GS, C&S See PACS Report for procedural detail/treatment Miki Rich MD Jul 23, 2017 01:38
[2017-07-23] MEDS ORDERED: IODIXANOL 320 MG/ML 50 ML VIAL (for RAD SPEC) OTHER ONE (01:49)
[2017-07-23] MEDS ORDERED: SODIUM BICARBONATE 8.4% SOLN 50 MEQ/50 ML VIAL IV SCH (02:03)
[2017-07-23] MEDS: fentaNYL DRIP 250 ML IV PRN ×2 (02:05→22:53)
[2017-07-23] MEDS: MIDAZOLAM 100 MG/100 ML INJ 100 ML IV PRN ×2 (02:05→22:52)
[2017-07-23] MEDS ORDERED: SODIUM BICARBONATE 8.4% INJ 50 MEQ/50 ML SYR ONE ×2 (02:05→02:06)
[2017-07-23] MEDS: PIPERACIL-TAZO 2.25 GM PREMIX 50 ML IV SCH ×4 (02:06→20:20)
[2017-07-23] MEDS: SODIUM BICARBONATE 8.4% INJ 150 MEQ in DEXTROSE 5% IN WATE 1000ML INJ 1,000 ML IV SCH ×6 (02:21→20:45)
[2017-07-23] MEDS: VASOPRESSIN 40 U/D5W 100 ML Titrate, Post Cardiac Surgery IV PRN ×2 (02:28)
--- NOTE | 2017-07-23 02:52 | RADRPT ---
EXAM DATE/TIME: 07/23/2017 02:37 [facility] COMPARISON: CHEST SINGLE AP, July 23, 2017, 0:25. INDICATIONS : Post intubation. MEDICAL HISTORY : None. SURGICAL HISTORY : Pacemaker. ENCOUNTER: Initial ACUITY: 1 day PAIN SCORE: 0/10 LOCATION: Bilateral chest FINDINGS: The cardiac silhouette is enlarged in transverse diameter. A biventricular defibrillator is in place via a left sided approach. Endotracheal tube is in good position above the kain. There is prominenc e of the central pulmonary vasculature with indistinct vascular margins compatible with vascular stewart estion but no evidence of overt failure. CONCLUSION: 1. Satisfactory position of endotracheal tube as above. Rj Miles MD on July 23, 2017 at 2:50 Board Certified Radiologist. This report was verified electronically.
[2017-07-23] MEDS: RESP: ALBUTEROL 2.5 MG/IPRATROPIUM 0.5 MG NEB (SCH) INH ×4 (03:12→19:54)
[2017-07-23] MEDS ORDERED: SODIUM CHLOR 0.9% 1000 ML INJ 1,000 ML IV ONE ×2 (03:45→04:15)
[2017-07-23] MEDS ORDERED: CHLORHEXIDINE GLUCONATE 2 % 1 PACK (2 CLOTHS) TOP SCH (04:00)
[2017-07-23] MEDS: HEPARIN SODIUM - SQ 10,000 UNITS/ML VIAL SQ SCH ×3 (04:32→20:20)
[2017-07-23 05:15] LABS: INTERNATIONAL NORMALIZED RATIO 2.3 RATIO; PROTHROMBIN TIME - PATIENT 23.4 SEC (9.8-11.6)
[2017-07-23 05:17] LABS: AUTOMATED NEUTROPHIL # 17.2 TH/MM3 (1.8-7.7); BASOPHIL # 0.1 TH/MM3 (0-0.2); BASOPHIL % 0.5 % (0.0-2.0); EOSINOPHIL % 0.1 % (0.0-4.0); HEMOGLOBIN 9.5 GM/DL (13.0-17.0); LYMPH % 2.4 % (9.0-44.0); LYMPHOCYTE # 0.5 TH/MM3 (1.0-4.8); MEAN CELL VOLUME 94.6 FL (80.0-100.0); MEAN CORPUSCULAR HEMOGLOBIN 29.9 PG (27.0-34.0); MEAN CORPUSCULAR HGB CONC 31.6 % (32.0-36.0); MEAN PLATELET VOLUME 8.1 FL (7.0-11.0); MONO % 7.2 % (0.0-8.0); MONOCYTE # 1.4 TH/MM3 (0-0.9); NEUT % 89.8 % (16.0-70.0); PLATELET COUNT 117 TH/MM3 (150-450); RED BLOOD COUNT 3.18 MIL/MM3 (4.50-5.90); RED CELL DISTRIBUTION WIDTH 18.4 % (11.6-17.2); WHITE BLOOD COUNT 19.1 TH/MM3 (4.0-11.0)
--- NOTE | 2017-07-23 05:44 | PD.PROCEDR ---
Procedure Note Procedure Endotracheal Intubation A time-out was completed verifying correct patient, procedure, site, positioning , and special equipment if applicable. The patient was placed in a flat position. Sedation was obtained using Etomidate 20mg. The patient was easily ventilated using an ambu bag. The [employer]/ MAC 4 BLADE was used and inserted into the oropharynx at which time there was a Grade 1 view of the vocal cords. A 8-macedonian endotracheal tube was inserted and visualized going through the vocal cords. The stylette was removed. Colorimetric change was visualized on the CO2 meter. Breath sounds were heard in both lung kelly equally. The endotracheal tube was placed at 23 cm, measured at the teeth. A chest x-ray was ordered to assess for pneumothorax and verify endotrachealtube placement. Estimated Blood Loss: 0 The patient tolerated the procedure well and there were no complications. Rizwan Almendarez MD Jul 23, 2017 05:44
--- NOTE | 2017-07-23 05:46 | PD.PROCEDR ---
Procedure Note Procedure Arterial line placement A time-out was completed verifying correct patient, procedure, site, positioning , and special equipment if applicable. The patients right groin was prepped and draped in sterile fashion. 1% Lidocaine was used to anesthetize the area. A 18G Arrow arterial line was introduced into the femoral artery. The catheter was threaded over the guide wire and the needle was removed with appropriate pulsatile blood return. The catheter was then sutured in place to the skin and a sterile dressing applied. Perfusion to the extremity distal to the point of catheter insertion was checked and found to be adequate. Estimated Blood Loss: 1ml The patient tolerated the procedure well and there were no complications. Rizwan Almendarez MD Jul 23, 2017 05:46
[2017-07-23] MEDS: NOREPINEPHRINE 4 MG/D5W 250 ML IV PRN ×3 (06:00→22:53)
[2017-07-23 06:02] LABS: ALBUMIN 2.1 GM/DL (3.4-5.0); ALKALINE PHOSPHATASE 132 U/L (45-117); ALT (GPT) 4501 U/L (12-78); AST (GOT) 11960 U/L (15-37); BICARBONATE 12.5 MEQ/L (21.0-32.0); BLOOD UREA NITROGEN 35 MG/DL (7-18); CALCIUM 7.6 MG/DL (8.5-10.1); CHLORIDE 108 MEQ/L (98-107); CREATININE 4.76 MG/DL (0.60-1.30); GLOMERULAR FILTRATION RATE 12 ML/MIN (>89); GLUCOSE,RANDOM 100 MG/DL (74-106); MAGNESIUM 2.1 MG/DL (1.5-2.5); PHOSPHORUS 8.1 MG/DL (2.5-4.9); SODIUM (NA) 143 MEQ/L (136-145); TOTAL BILIRUBIN ADULT 1.8 MG/DL (0.2-1.0); TOTAL PROTEIN 5.6 GM/DL (6.4-8.2)
[2017-07-23 06:10] LABS: TROPONIN I 5.61 NG/ML (0.02-0.05)
[2017-07-23] MEDS ORDERED: INSULIN HUMAN REGULAR 1,000 UNITS/10 ML VIAL IV PUSH ONE (06:45)
[2017-07-23] MEDS ORDERED: CALCIUM GLUCONATE 10% 1 GM/10 ML VIAL SLOW IVP ONE (06:45)
[2017-07-23] MEDS ORDERED: DEXTROSE 50% IN WATER 50 ML VIAL(D50) IV PUSH ONE (06:45)
[2017-07-23] MEDS ORDERED: SODIUM POLYSTYRENE SULFONATE SUSP 15 GM/60 ML CUP PO ONE (06:45)
[2017-07-23] MEDS ORDERED: SODIUM BICARBONATE 8.4% SOLN 50 MEQ/50 ML VIAL SLOW IVP ONE (06:45)
[2017-07-23 07:10] LABS: ACANTHOCYTES OCC (NORMAL); BANDS 16 % (0-6); LYMPHOCYTES 2 % (9-44); MONOCYTES 7 % (0-8)
[2017-07-23 07:11] LABS: BURR CELLS 1+ (NORMAL); OVALOCYTES 1+ (NORMAL)
[2017-07-23 07:13] LABS: DOHLE BODIES PRESENT (NONE SEEN); MYELOCYTES 1 % (0-0); NEUTROPHIL # MANUAL DIFF 17.4 TH/MM3 (1.8-7.7); POLYS (SEG NEUTROPHILS) 74 % (16-70)
[2017-07-23] MEDS ORDERED: SODIUM CHLOR 0.9% 1000 ML INJ 1,000 ML OTHER PRN ×2 (07:58)
[2017-07-23] MEDS ORDERED: SODIUM CHLOR 0.9% 1000 ML INJ 1,000 ML IV PRN (07:58)
[2017-07-23] MEDS ORDERED: cloNIDine HCL 0.1 MG TAB PO PRN (08:00)
[2017-07-23] MEDS ORDERED: GELATIN 12 MM/7 MM FOAM TOP PRN (08:00)
[2017-07-23] MEDS ORDERED: diphenhydrAMINE HCL 25 MG CAP PO PRN (08:00)
[2017-07-23] MEDS ORDERED: EPOETIN ALFA 10,000 UNITS/ML VIAL IV PUSH PRN (08:00)
[2017-07-23] MEDS ORDERED: GENTAMICIN SULFATE (DIALYSIS USE ONLY) 20 MG/2 ML VIAL OTHER PRN (08:00)
[2017-07-23] MEDS ORDERED: NITROGLYCERIN 0.4 MG SL 25 TABS/BTL SL PRN (08:00)
[2017-07-23] MEDS ORDERED: MANNITOL 12.5 GM/50 ML VIAL IV PRN (08:00)
[2017-07-23] MEDS: INSULIN ASPART SUPPLEMENTAL SCALE SQ SCH ×4 (08:00→19:57)
[2017-07-23] MEDS ORDERED: ALBUMIN 25% INJ 100 ML IV PRN (08:00)
[2017-07-23] MEDS ORDERED: HEPARIN SODIUM - IV 10,000 UNITS/10 ML VIAL PRN (08:00)
[2017-07-23] MEDS ORDERED: SODIUM CHLORIDE 0.9% FLUSH 10 ML FLUSH IV FLUSH PRN (08:00)
[2017-07-23] MEDS ORDERED: ONDANSETRON HCL 4 MG/2 ML VIAL IV PUSH PRN (08:00)
[2017-07-23] MEDS ORDERED: ACETAMINOPHEN 325 MG TAB PO PRN (08:00)
[2017-07-23] MEDS ORDERED: HEPARIN SODIUM - IV 10,000 UNITS/10 ML VIAL IV FLUSH PRN (08:00)
--- NOTE | 2017-07-23 08:17 | PD.CONS ---
HPI Service cardiology Consult Requested By Reason for Consult elevated troponins Primary Care Physician Bharathi Mcdowell MD History of Present Illness This is an 87 yo M with history of bladder cancer, ESRD, HTN, diabetes, HLD and recent pacemaker implantation who presented with respiratory distress yesterday while receiving dialysis. EMS apparently found him to be hypoxic and hypoglycemic, awake and alert; but upon arrival to ED he was found to be in acutely septic. Troponins elevated (2.62, 5.61) and imaging showed hydronephrosis. this morning during nephrostomy tube insertion he went into cardiac arrest requiring intubation. (Juliette Tubbs) Review of Systems currently sedated, intubated and mechanically ventilated (Juliette Tubbs) Past Family Social History Allergies: Coded Allergies: No Known Allergies (Unverified , 04/11/16) Past Medical History Hypertension Hyperlipidemia End-stage renal disease on dialysis Permanent pacemaker in place Tobacco use Diabetes mellitus Past Surgical History Cataract surgery Permanent pacemaker placement Bladder surgery for recurrent cancer 8 Right knee replacement Reported Medications Reported Meds & Active Scripts Active Oxygen (O2) (Z.0.oxygendme) Device 2 L NC CONTINUOUS Oxygen Concentrator Portable Gaseous 2 L/min via Nasal Cannula Continuous For 99 months Bumetanide 1 Mg Tab 1 Mg PO BID 30 Days Reported Cozaar (Losartan Potassium) 100 Mg Tab 100 Mg PO DAILY Cozaar (Losartan Potassium) 100 Mg Tab 100 Mg PO DAILY Vitamin C (Ascorbic Acid) 500 Mg Cap 500 Mg PO DAILY Niacin 250 Mg Cap 500 Mg PO ONCE Multivitamin (Multivitamins) 1 Tab Tab 1 Tab PO DAILY Hydralazine HCl 100 Mg Tab 100 Mg PO BID Aspir-81 (Aspirin) 81 Mg Tab 81 Mg PO DAILY Glipizide 10 Mg Tab 10 Mg PO DAILY Calcitriol 0.25 Mcg Cap 0.25 Mcg PO DAILY Potassium Chloride inj (Potassium Chloride) 20 Meq Tab 1 Tab PO DAILY Isosorbide Mononitrate Er (Isosorbide Mononitrate) 30 Mg Tab 30 Mg PO DAILY Active Ordered Medications Current Medications Medications (Trade) Dose Ordered Sig/Juan Diego Route Start Time Stop Time Status Last Admin (Aspirin Chew) 81 mg DAILY PO 07/23/17 09:00 (Bumetanide) 1 mg BID PO 07/23/17 09:00 (Rocaltrol) 0.25 mcg DAILY PO 07/23/17 09:00 (Theragran) 1 tab DAILY PO 07/23/17 09:00 (Vitamin C) 500 mg DAILY PO 07/23/17 09:00 (NS Flush) 2 ml UNSCH PRN IV FLUSH 07/22/17 21:15 (NS Flush) 2 ml BID IV FLUSH 07/23/17 09:00 (Tylenol) 650 mg Q6H PRN PO 07/22/17 21:15 (Morphine Inj) 2 mg Q2H PRN IV PUSH 07/22/17 21:15 (Pepcid Inj) 20 mg Q12HR IV PUSH 07/23/17 09:00 (Zofran Inj) 4 mg Q6H PRN IV PUSH 07/22/17 21:15 (Duoneb Neb) 1 ampule Q6HR NEB INH 07/22/17 22:00 07/23/17 07:44 (Duoneb Neb) 1 ampule Q2HR NEB PRN INH 07/22/17 21:15 (Heparin Inj) 5,000 units Q8H SQ 07/22/17 21:15 Miscellaneous Information 1 Q361D XX 07/22/17 21:15 (Chlorhexidine 2% Cloth) 3 pack Taper DAILY@04 TOP 07/23/17 04:00 07/19/18 03:59 (Chlorhexidine 2% Cloth) 3 pack UNSCH PRN TOP 07/22/17 21:15 (Anabela-Colace) 1 tab BID PO 07/23/17 09:00 (Milk Of Magnesia Liq) 30 ml Q12H PRN PO 07/22/17 21:15 (Senokot) 17.2 mg Q12H PRN PO 07/22/17 21:15 (Dulcolax Supp) 10 mg DAILY PRN RECTAL 07/22/17 21:15 (Lactulose Liq) 30 ml DAILY PRN PO 07/22/17 21:15 Pharmacy Profile Note 0 ml @ 0 mls/hr UNSCH OTHER 07/22/17 21:15 Piperacillin Sod/ Tazobactam Sod 50 ml @ 200 mls/hr Q6H IV 07/23/17 02:00 07/23/17 02:06 (D50w (Vial) Inj) 50 ml UNSCH PRN IV PUSH 07/22/17 23:30 07/22/17 23:38 (Glucagon Inj) 1 mg UNSCH PRN OTHER 07/22/17 23:30 (NovoLOG SUPPLEMENTAL SCALE) 1 ACHS SLIDING SCALE SQ 07/23/17 08:00 Norepinephrine Bitartrate 250 ml @ 7.5 mls/hr TITRATE PRN IV 07/23/17 00:15 07/23/17 06:00 Fentanyl Citrate 250 ml @ 5 mls/hr TITRATE PRN IV 07/23/17 01:30 07/23/17 02:05 Midazolam HCl 100 ml @ 2 mls/hr TITRATE PRN IV 07/23/17 01:30 07/23/17 02:05 Sodium Bicarbonate 150 meq/Dextrose 1,150 ml @ 100 mls/hr [id number] IV 07/23/17 02:00 07/23/17 02:21 Vasopressin 40 units/Dextrose 100 ml @ 6 mls/hr TITRATE PRN IV 07/23/17 02:15 07/23/17 02:28 Sodium Chloride 1,000 ml @ 0 mls/hr Q0M PRN OTHER 07/23/17 07:58 UNV (Heparin Inj) 8,000 units UNSCH PRN IV FLUSH 07/23/17 08:00 UNV Sodium Chloride 1,000 ml @ 200 mls/hr Q5H PRN IV 07/23/17 07:58 UNV Sodium Chloride 1,000 ml @ 0 mls/hr Q0M PRN OTHER 07/23/17 07:58 UNV (Mannitol Inj) 12.5 gm UNSCH PRN IV 07/23/17 08:00 UNV Albumin Human 100 ml @ 60 mls/hr UNSCH PRN IV 07/23/17 08:00 UNV (NS Flush) 5 ml UNSCH PRN IV FLUSH 07/23/17 08:00 UNV (Heparin Inj) UNSCH PRN .XX 07/23/17 08:00 UNV (Gentamicin (Dialysis) Inj) 20 mg UNSCH PRN OTHER 07/23/17 08:00 UNV (Zofran Inj) 4 mg UNSCH PRN IV PUSH 07/23/17 08:00 UNV (Tylenol) 650 mg UNSCH PRN PO 07/23/17 08:00 UNV (Benadryl) 25 mg UNSCH PRN PO 07/23/17 08:00 UNV (Nitrostat Sl) 0.4 mg UNSCH PRN SL 07/23/17 08:00 UNV (Catapres) 0.1 mg UNSCH PRN PO 07/23/17 08:00 UNV (Epogen Inj) 10,000 units UNSCH PRN IV PUSH 07/23/17 08:00 UNV (Gelfoam 12 Mm/7 Mm Top) 1 foam UNSCH PRN TOP 07/23/17 08:00 UNV Family History non-contributory Social History Patient used to smoke 3 cigars daily, but has not smoked in 4 days. Alcohol occasionally. Denies any illicit drug (Juliette Tubbs) Physical Exam Vital Signs Vital Signs Date Time Temp Pulse Resp B/P (MAP) Pulse Ox O2 Delivery O2 Flow Rate FiO2 07/23/17 07:45 98 60 07/23/17 06:00 80 07/23/17 06:00 94 07/23/17 04:14 100 80 07/23/17 04:00 105 07/23/17 04:00 97.9 98 14 94/56 (69) 99 07/23/17 04:00 70 07/23/17 02:28 105 156/60 07/23/17 02:10 97 80 07/23/17 02:00 80 07/23/17 01:30 0 100 07/23/17 01:05 0 100 07/23/17 00:55 100 07/23/17 00:00 105 07/22/17 23:15 50 85/50 07/22/17 23:00 100.3 62 24 94/55 (68) 95 07/22/17 22:40 07/22/17 20:00 62 35 113/53 (73) 99 Simple Mask 5.00 07/22/17 18:42 Nasal Cannula 2.00 07/22/17 18:09 Nasal Cannula 2.00 07/22/17 18:03 98.7 67 32 123/55 (77) 88 Physical Exam GENERAL: sedated, intubated SKIN: Warm and dry. HEAD: Atraumatic. Normocephalic. EYES: Pupils equal and round. ENT: No nasal bleeding or discharge. NECK: Trachea midline. No JVD. CARDIOVASCULAR: Regular rate and rhythm. +systolic murmur RESPIRATORY: No accessory muscle use. Clear to auscultation. Breath sounds equal bilaterally. GASTROINTESTINAL: Abdomen soft, non-tender, nondistended. . MUSCULOSKELETAL: Extremities without clubbing, cyanosis, or edema. No obvious deformities. NEUROLOGICAL: sedated, intubated and mechanically ventilated Laboratory Laboratory Tests Test 07/22/17 18:25 07/22/17 19:08 07/22/17 19:20 07/22/17 21:04 White Blood Count 21.0 Red Blood Count 2.99 Hemoglobin 8.9 Hematocrit 27.8 Mean Corpuscular Volume 92.8 Mean Corpuscular Hemoglobin 29.6 Mean Corpuscular Hemoglobin Concent 31.9 Red Cell Distribution Width 18.8 Platelet Count 165 Mean Platelet Volume 7.5 Neutrophils (%) (Auto) 92.3 Lymphocytes (%) (Auto) 1.4 Monocytes (%) (Auto) 6.2 Eosinophils (%) (Auto) 0.0 Basophils (%) (Auto) 0.1 Neutrophils # (Auto) 19.4 Lymphocytes # (Auto) 0.3 Monocytes # (Auto) 1.3 Eosinophils # (Auto) 0.0 Basophils # (Auto) 0.0 CBC Comment DIFF FINAL Differential Comment Prothrombin Time 15.4 Prothromb Time International Ratio 1.5 Blood Urea Nitrogen 28 Creatinine 4.23 Random Glucose 128 Calcium Level 8.2 Sodium Level 139 Potassium Level 5.2 Chloride Level 107 Carbon Dioxide Level 18.6 Anion Gap 13 Estimat Glomerular Filtration Rate 13 Troponin I 1.78 Blood Gas Puncture Site RT BRACHIAL Blood Gas Patient Temperature 98.6 Blood Gas HCO3 12 Blood Gas Base Excess -11.0 Blood Gas Oxygen Saturation 92 Arterial Blood pH 7.49 Arterial Blood Partial Pressure CO2 16 Arterial Blood Partial Pressure O2 72 Arterial Blood Oxygen Content 11.4 Arterial Blood Carboxyhemoglobin 2.2 Arterial Blood Methemoglobin 0.6 Blood Gas Hemoglobin 8.7 Oxygen Delivery Device NASAL CANNULA Blood Gas Liter Flow 3 Lactic Acid Level 11.7 Nasal Screen MRSA (PCR) MRSA DETECTED Test 07/22/17 22:20 07/23/17 00:28 07/23/17 01:54 07/23/17 02:35 Lactic Acid Level 9.3 14.2 Troponin I 2.62 Urine Color RED Urine Turbidity CLOUDY Urine pH 5.5 Urine Specific Cheney 1.018 Urine Protein 100 Urine Glucose (UA) NEG Urine Ketones TRACE Urine Occult Blood LARGE Urine Nitrite NEG Urine Bilirubin NEG Urine Urobilinogen LESS THAN 2.0 Urine Leukocyte Esterase LARGE Urine RBC Urine WBC Urine WBC Clumps MANY Urine Bacteria FEW Urine Mucus FEW Urine Yeast (Budding) FEW Microscopic Urinalysis Comment CULTURE INDICATED Blood Gas Puncture Site ART LINE Blood Gas Patient Temperature 98.6 Blood Gas HCO3 9 Blood Gas Base Excess -17.3 Blood Gas Oxygen Saturation 97 Arterial Blood pH 7.22 Arterial Blood Partial Pressure CO2 23 Arterial Blood Partial Pressure O2 491 Arterial Blood Oxygen Content 11.6 Arterial Blood Carboxyhemoglobin 1.3 Arterial Blood Methemoglobin 1.5 Blood Gas Hemoglobin 7.5 Oxygen Delivery Device VENTILATOR Blood Gas Ventilator Setting PRVC/AC Blood Gas Inspired Oxygen 100 Test 07/23/17 04:44 07/23/17 04:45 Lactic Acid Level 14.3 White Blood Count 19.1 Red Blood Count 3.18 Hemoglobin 9.5 Hematocrit 30.0 Mean Corpuscular Volume 94.6 Mean Corpuscular Hemoglobin 29.9 Mean Corpuscular Hemoglobin Concent 31.6 Red Cell Distribution Width 18.4 Platelet Count 117 Mean Platelet Volume 8.1 Neutrophils (%) (Auto) 89.8 Lymphocytes (%) (Auto) 2.4 Monocytes (%) (Auto) 7.2 Eosinophils (%) (Auto) 0.1 Basophils (%) (Auto) 0.5 Neutrophils # (Auto) 17.2 Lymphocytes # (Auto) 0.5 Monocytes # (Auto) 1.4 Eosinophils # (Auto) 0.0 Basophils # (Auto) 0.1 CBC Comment AUTO DIFF Differential Total Cells Counted 100 Neutrophils % (Manual) 74 Band Neutrophils % 16 Lymphocytes % 2 Monocytes % 7 Neutrophils # (Manual) 17.4 Myelocytes 1 Differential Comment FINAL DIFF MANUAL Dohle Bodies PRESENT Platelet Estimate LOW Platelet Morphology Comment NORMAL Ovalocytes 1+ Ambrose Cells 1+ Acanthocytes OCC Prothrombin Time 23.4 Prothromb Time International Ratio 2.3 Blood Urea Nitrogen 35 Creatinine 4.76 Random Glucose 100 Total Protein 5.6 Albumin 2.1 Calcium Level 7.6 Phosphorus Level 8.1 Magnesium Level 2.1 Alkaline Phosphatase 132 Aspartate Amino Transf (AST/SGOT) 77988 Alanine Aminotransferase (ALT/SGPT) 4501 Total Bilirubin 1.8 Sodium Level 143 Potassium Level 6.4 Chloride Level 108 Carbon Dioxide Level 12.5 Anion Gap 23 Estimat Glomerular Filtration Rate 12 Troponin I 5.61 Date/Time Source Procedure Growth Status 07/22/17 19:30 Blood Peripheral Aerobic Blood Culture Pending Received 07/22/17 19:30 Blood Peripheral Anaerobic Blood Culture Pending Received 07/23/17 01:33 Fluid Other Gram Stain Pending Received 07/23/17 01:33 Fluid Other Body Fluid Culture Pending Received 07/23/17 00:28 Urine Clean Catch Urine Culture Pending Received (Juliette Tubbs) Result Diagram: 07/23/17 0445 07/23/17 0445 Imaging Last 24 hours Impressions Chest X-Ray 07/23/17 0000 Signed Impressions: Service Date/Time: Sunday, July 23, 2017 02:37 - CONCLUSION: 1. Satisfactory position of endotracheal tube as above. Rj Miles MD Chest X-Ray 07/23/17 0000 Signed Impressions: Service Date/Time: Sunday, July 23, 2017 00:25 - CONCLUSION: 1. Right subclavian central line in good position without pneumothorax. Miki Rich MD Chest X-Ray 07/22/17 1812 Signed Impressions: Service Date/Time: Saturday, July 22, 2017 18:31 - CONCLUSION: Left subclavian bipolar pacer. The heart is enlarged. Lungs are clear. Cole Leach MD (Juliette Tubbs) Assessment and Plan Problem List: (1) Elevated troponin ICD Codes: R79.89 - Other specified abnormal findings of blood chemistry Status: Acute (2) Severe sepsis ICD Codes: A41.9 - Sepsis, unspecified organism; R65.20 - Severe sepsis without septic shock Status: Acute (3) Chronic kidney disease, stage IV (severe) ICD Codes: N18.4 - Chronic kidney disease, stage 4 (severe) Status: Acute Assessment and Plan This is an 87 yo M with history of bladder cancer, ESRD, HTN, diabetes, HLD and recent pacemaker implantation who presented with respiratory distress yesterday while receiving dialysis. EMS apparently found him to be hypoxic and hypoglycemic, awake and alert; but upon arrival to ED he was found to be in acutely septic. this morning during nephrostomy tube insertion for hydronephrosis he went into cardiac arrest requiring intubation. NSTEMI- currently sedated and intubated. consider ischemic workup once stabilized echo pending (Juliette Tubbs) Assessment and Plan multiorgan failure sepsis cardiac arrest respiratory failure continue supportive care telemetry ischemic evaluation when stable (Cole Rhodes MD) Juliette Tubbs Jul 23, 2017 08:17 Cole Rhodes MD Jul 23, 2017 11:46
[2017-07-23] MEDS: SODIUM CHLORIDE 0.9% FLUSH 10 ML FLUSH IV FLUSH SCH ×2 (09:00→20:20)
[2017-07-23] MEDS: MULTIVITAMIN TAB PO SCH (09:00)
[2017-07-23] MEDS: DOCUSATE SODIUM 50 MG/SENNA 8.6 MG TAB PO SCH ×2 (09:00→20:19)
[2017-07-23] MEDS ORDERED: FAMOTIDINE 20 MG/2 ML VIAL IV PUSH SCH (09:00)
[2017-07-23] MEDS: ASCORBIC ACID 500 MG TAB PO SCH (09:00)
[2017-07-23] MEDS: BUMETANIDE 1 MG TAB PO SCH ×2 (09:00→20:20)
[2017-07-23] MEDS ORDERED: SODIUM CHLORIDE 0.9% FLUSH 10 ML FLUSH IV FLUSH SCH (09:00)
[2017-07-23] MEDS: ASPIRIN 81 MG CHEW TAB PO SCH (09:00)
[2017-07-23] MEDS: CALCITRIOL 0.25 MCG CAP PO SCH (09:00)
--- NOTE | 2017-07-23 09:05 | RADRPT ---
EXAM DATE/TIME: 07/23/2017 01:43 [facility] COMPARISON: No previous studies available for comparison. INDICATIONS : History of bladder CA and left-sided hydronephrosis with severe sepsis. Emergent nephrostomy catheter placement requested. MEDICAL HISTORY : HTN Hyperlipidemia End stage renal disease Diabetes SURGICAL HISTORY : Pacemaker Cataract surgery Bladder surgery Right knee replacement. ENCOUNTER: Initial ACUITY: 1 day PAIN SCORE: Non-responsive FLUORO TIME: 1.04 minutes IMAGE SERIES: 1 SEDATION TIME: 30 minutes CONTRAST: 20 cc Visipaque (iodixanol) MEDICATION(S): 1.) 1 mg midazolam (Versed) IV 2.) 50 mcg fentanyl (Sublimaze) IV DEVICE(S): 1.) 10 English nephrostomy catheter PROCEDURE : 1. Ultrasound-guided puncture of the kidney. 2. Antegrade percutaneous pyelogram. 3. Percutaneous nephrostomy placement. 4. Conscious sedation with continuous EKG and oximetry monitoring. The risks, benefits and alternatives to the procedure were explained and verbal and written consent w as obtained. The site was prepped in sterile fashion. Full sterile technique was used, including ca p, mask, sterile gloves and gown and a large sterile sheet. Hand hygiene and 2% chlorhexidine and/or betadine/alcohol prep was utilized per protocol for cutaneous antisepsis. Sterile gel and sterile probe cover were utilized for ultrasound guidance. The skin and subcutaneous tissues were infiltrate d with local anesthetic solution. Patient was placed prone. The patient was noted to become apneic and was therefore transferred back t o bed and resuscitative efforts initiated. Patient was intubated during the resuscitation and eventua lly regained stable vital signs. Therefore, decision was to continue with the procedure. Patient was again placed prone. With ultrasound and fluoroscopic guidance the selected kidney was punctured and a percutaneous antegrade pyelogram was performed demonstrating a dilated collecting system. Serial di latation was performed and a prescribed nephrostomy tube was placed within the renal pelvis and sutur ed in place. Approximately 20 cc of dark straw-colored fluid was removed and submitted for Gram stain and C&S. Conscious sedation was performed with the prescribed dosages and duration as above in the presence of an independent trained radiology nurse to assist in the monitoring of the patient. EKG and oximetry remained stable throughout the procedure. The patient tolerated the procedure well and there were n o complications. The patient was sent to post anesthesia recovery in stable condition. CONCLUSION: 1. Technically successful fluoroscopic and ultrasound-guided percutaneous left-sided nephrostomy cath eter placement, as above. Miki Rich MD on July 23, 2017 at 8:59 Board Certified Radiologist. This report was verified electronically.
--- NOTE | 2017-07-23 11:53 | PD.CONS ---
HPI Service Nephrology Consult Requested By Dr. Almendarez Reason for Consult ESRD management Primary Care Physician Bharathi Mcdowell MD History of Present Illness Patient is a 87-year-old white male with history of end-stage renal disease on hemodialysis he was at the dialysis center yesterday and developed chills and was given vancomycin and ceftazidime however his condition did not improve and the he came in to the emergency with fever and chills and admitted with sepsis he underwent workup with CT scan showed left hydronephrosis and he require vasopressors then it was decided to place a nephrostomy tube however he did have a code and he is intubated the on ventilator currently getting hemodialysis Review of Systems ROS Limitations: Clinical Condition Past Family Social History Allergies: Coded Allergies: No Known Allergies (Unverified , 04/11/16) Past Medical History End-stage renal disease CHF Diabetes Coronary artery disease History of pneumonia Atrial fibrillation Coronary artery disease Hyperlipidemia Past Surgical History A fistula placement Coronary artery bypass grafting Stent Bladder cancer removed Right knee arthroscopy Left knee replacement Cataracts AICD Reported Medications Reported Meds & Active Scripts Active Oxygen (O2) (Z.0.oxygendme) Device 2 L NC CONTINUOUS Oxygen Concentrator Portable Gaseous 2 L/min via Nasal Cannula Continuous For 99 months Bumetanide 1 Mg Tab 1 Mg PO BID 30 Days Reported Cozaar (Losartan Potassium) 100 Mg Tab 100 Mg PO DAILY Cozaar (Losartan Potassium) 100 Mg Tab 100 Mg PO DAILY Vitamin C (Ascorbic Acid) 500 Mg Cap 500 Mg PO DAILY Niacin 250 Mg Cap 500 Mg PO ONCE Multivitamin (Multivitamins) 1 Tab Tab 1 Tab PO DAILY Hydralazine HCl 100 Mg Tab 100 Mg PO BID Aspir-81 (Aspirin) 81 Mg Tab 81 Mg PO DAILY Glipizide 10 Mg Tab 10 Mg PO DAILY Calcitriol 0.25 Mcg Cap 0.25 Mcg PO DAILY Potassium Chloride inj (Potassium Chloride) 20 Meq Tab 1 Tab PO DAILY Isosorbide Mononitrate Er (Isosorbide Mononitrate) 30 Mg Tab 30 Mg PO DAILY Active Ordered Medications Current Medications Medications (Trade) Dose Ordered Sig/Juan Diego Route Start Time Stop Time Status Last Admin (Aspirin Chew) 81 mg DAILY PO 07/23/17 09:00 07/23/17 09:00 (Bumetanide) 1 mg BID PO 07/23/17 09:00 07/23/17 09:00 (Rocaltrol) 0.25 mcg DAILY PO 07/23/17 09:00 07/23/17 09:00 (Theragran) 1 tab DAILY PO 07/23/17 09:00 07/23/17 09:00 (Vitamin C) 500 mg DAILY PO 07/23/17 09:00 07/23/17 09:00 (NS Flush) 2 ml UNSCH PRN IV FLUSH 07/22/17 21:15 (NS Flush) 2 ml BID IV FLUSH 07/23/17 09:00 07/23/17 09:00 (Tylenol) 650 mg Q6H PRN PO 07/22/17 21:15 (Morphine Inj) 2 mg Q2H PRN IV PUSH 07/22/17 21:15 (Pepcid Inj) 20 mg Q12HR IV PUSH 07/23/17 09:00 07/23/17 09:00 (Zofran Inj) 4 mg Q6H PRN IV PUSH 07/22/17 21:15 (Duoneb Neb) 1 ampule Q6HR NEB INH 07/22/17 22:00 07/23/17 07:44 (Duoneb Neb) 1 ampule Q2HR NEB PRN INH 07/22/17 21:15 (Heparin Inj) 5,000 units Q8H SQ 07/22/17 21:15 Miscellaneous Information 1 [id number] XX 07/22/17 21:15 (Chlorhexidine 2% Cloth) 3 pack Taper DAILY@04 TOP 07/23/17 04:00 07/19/18 03:59 (Chlorhexidine 2% Cloth) 3 pack UNSCH PRN TOP 07/22/17 21:15 (Anabela-Colace) 1 tab BID PO 07/23/17 09:00 07/23/17 09:00 (Milk Of Magnesia Liq) 30 ml Q12H PRN PO 07/22/17 21:15 (Senokot) 17.2 mg Q12H PRN PO 07/22/17 21:15 (Dulcolax Supp) 10 mg DAILY PRN RECTAL 07/22/17 21:15 (Lactulose Liq) 30 ml DAILY PRN PO 07/22/17 21:15 Pharmacy Profile Note 0 ml @ 0 mls/hr UNSCH OTHER 07/22/17 21:15 Piperacillin Sod/ Tazobactam Sod 50 ml @ 200 mls/hr Q6H IV 07/23/17 02:00 07/23/17 08:00 (D50w (Vial) Inj) 50 ml UNSCH PRN IV PUSH 07/22/17 23:30 07/22/17 23:38 (Glucagon Inj) 1 mg UNSCH PRN OTHER 07/22/17 23:30 (NovoLOG SUPPLEMENTAL SCALE) 1 ACHS SLIDING SCALE SQ 07/23/17 08:00 Norepinephrine Bitartrate 250 ml @ 7.5 mls/hr TITRATE PRN IV 07/23/17 00:15 07/23/17 06:00 Fentanyl Citrate 250 ml @ 5 mls/hr TITRATE PRN IV 07/23/17 01:30 07/23/17 02:05 Midazolam HCl 100 ml @ 2 mls/hr TITRATE PRN IV 07/23/17 01:30 07/23/17 02:05 Sodium Bicarbonate 150 meq/Dextrose 1,150 ml @ 100 mls/hr [id number] IV 07/23/17 02:00 07/23/17 02:21 Vasopressin 40 units/Dextrose 100 ml @ 6 mls/hr TITRATE PRN IV 07/23/17 02:15 07/23/17 02:28 Sodium Chloride 1,000 ml @ 0 mls/hr Q0M PRN OTHER 07/23/17 07:58 (Heparin Inj) 8,000 units UNSCH PRN IV FLUSH 07/23/17 08:00 Sodium Chloride 1,000 ml @ 200 mls/hr Q5H PRN IV 07/23/17 07:58 Sodium Chloride 1,000 ml @ 0 mls/hr Q0M PRN OTHER 07/23/17 07:58 (Mannitol Inj) 12.5 gm UNSCH PRN IV 07/23/17 08:00 Albumin Human 100 ml @ 60 mls/hr UNSCH PRN IV 07/23/17 08:00 (NS Flush) 5 ml UNSCH PRN IV FLUSH 07/23/17 08:00 (Heparin Inj) UNSCH PRN .XX 07/23/17 08:00 (Gentamicin (Dialysis) Inj) 20 mg UNSCH PRN OTHER 07/23/17 08:00 (Zofran Inj) 4 mg UNSCH PRN IV PUSH 07/23/17 08:00 (Tylenol) 650 mg UNSCH PRN PO 07/23/17 08:00 (Benadryl) 25 mg UNSCH PRN PO 07/23/17 08:00 (Nitrostat Sl) 0.4 mg UNSCH PRN SL 07/23/17 08:00 (Catapres) 0.1 mg UNSCH PRN PO 07/23/17 08:00 (Epogen Inj) 10,000 units UNSCH PRN IV PUSH 07/23/17 08:00 (Gelfoam 12 Mm/7 Mm Top) 1 foam UNSCH PRN TOP 07/23/17 08:00 Vancomycin HCl 1000 mg/Sodium Chloride 250 ml @ 250 mls/hr ONCE ONCE IV 07/23/17 16:00 07/23/17 16:59 Family History Noncontributory Social History History of cigar smoking Physical Exam Vital Signs Vital Signs Date Time Temp Pulse Resp B/P (MAP) Pulse Ox O2 Delivery O2 Flow Rate FiO2 07/23/17 11:22 100 60 07/23/17 10:00 92 07/23/17 08:00 97.8 90 15 110/56 (74) 100 07/23/17 08:00 90 07/23/17 08:00 60 07/23/17 07:45 98 60 07/23/17 06:00 80 07/23/17 06:00 94 07/23/17 04:14 100 80 07/23/17 04:00 105 07/23/17 04:00 97.9 98 14 94/56 (69) 99 07/23/17 04:00 70 07/23/17 02:28 105 156/60 07/23/17 02:10 97 80 07/23/17 02:00 80 07/23/17 01:30 0 100 07/23/17 01:05 0 100 07/23/17 00:55 100 07/23/17 00:00 105 07/22/17 23:15 50 85/50 07/22/17 23:00 100.3 62 24 94/55 (68) 95 07/22/17 22:40 07/22/17 20:00 62 35 113/53 (73) 99 Simple Mask 5.00 07/22/17 18:42 Nasal Cannula 2.00 07/22/17 18:09 Nasal Cannula 2.00 07/22/17 18:03 98.7 67 32 123/55 (96) 88 Physical Exam GENERAL: Well-nourished, well-developed intubated patient. SKIN: Warm and dry. HEAD: Normocephalic. EYES: No scleral icterus. No injection or drainage. NECK: Supple, intubated CARDIOVASCULAR: S1-S2 is irregular RESPIRATORY: Breath sounds equal bilaterally. No accessory muscle use. GASTROINTESTINAL: Abdomen soft, non-tender, nondistended. EXTREMITIES: No cyanosis, 1+ edema. NEUROLOGICAL: Obtunded Laboratory Laboratory Tests Test 07/22/17 18:25 07/22/17 19:08 07/22/17 19:20 07/22/17 21:04 White Blood Count 21.0 Red Blood Count 2.99 Hemoglobin 8.9 Hematocrit 27.8 Mean Corpuscular Volume 92.8 Mean Corpuscular Hemoglobin 29.6 Mean Corpuscular Hemoglobin Concent 31.9 Red Cell Distribution Width 18.8 Platelet Count 165 Mean Platelet Volume 7.5 Neutrophils (%) (Auto) 92.3 Lymphocytes (%) (Auto) 1.4 Monocytes (%) (Auto) 6.2 Eosinophils (%) (Auto) 0.0 Basophils (%) (Auto) 0.1 Neutrophils # (Auto) 19.4 Lymphocytes # (Auto) 0.3 Monocytes # (Auto) 1.3 Eosinophils # (Auto) 0.0 Basophils # (Auto) 0.0 CBC Comment DIFF FINAL Differential Comment Prothrombin Time 15.4 Prothromb Time International Ratio 1.5 Blood Urea Nitrogen 28 Creatinine 4.23 Random Glucose 128 Calcium Level 8.2 Sodium Level 139 Potassium Level 5.2 Chloride Level 107 Carbon Dioxide Level 18.6 Anion Gap 13 Estimat Glomerular Filtration Rate 13 Troponin I 1.78 Blood Gas Puncture Site RT BRACHIAL Blood Gas Patient Temperature 98.6 Blood Gas HCO3 12 Blood Gas Base Excess -11.0 Blood Gas Oxygen Saturation 92 Arterial Blood pH 7.49 Arterial Blood Partial Pressure CO2 16 Arterial Blood Partial Pressure O2 72 Arterial Blood Oxygen Content 11.4 Arterial Blood Carboxyhemoglobin 2.2 Arterial Blood Methemoglobin 0.6 Blood Gas Hemoglobin 8.7 Oxygen Delivery Device NASAL CANNULA Blood Gas Liter Flow 3 Lactic Acid Level 11.7 Nasal Screen MRSA (PCR) MRSA DETECTED Test 07/22/17 22:20 07/23/17 00:28 07/23/17 01:54 07/23/17 02:35 Lactic Acid Level 9.3 14.2 Troponin I 2.62 Urine Color RED Urine Turbidity CLOUDY Urine pH 5.5 Urine Specific [place] 1.018 Urine Protein 100 Urine Glucose (UA) NEG Urine Ketones TRACE Urine Occult Blood LARGE Urine Nitrite NEG Urine Bilirubin NEG Urine Urobilinogen LESS THAN 2.0 Urine Leukocyte Esterase LARGE Urine RBC Urine WBC Urine WBC Clumps MANY Urine Bacteria FEW Urine Mucus FEW Urine Yeast (Budding) FEW Microscopic Urinalysis Comment CULTURE INDICATED Blood Gas Puncture Site ART LINE Blood Gas Patient Temperature 98.6 Blood Gas HCO3 9 Blood Gas Base Excess -17.3 Blood Gas Oxygen Saturation 97 Arterial Blood pH 7.22 Arterial Blood Partial Pressure CO2 23 Arterial Blood Partial Pressure O2 491 Arterial Blood Oxygen Content 11.6 Arterial Blood Carboxyhemoglobin 1.3 Arterial Blood Methemoglobin 1.5 Blood Gas Hemoglobin 7.5 Oxygen Delivery Device VENTILATOR Blood Gas Ventilator Setting PRVC/AC Blood Gas Inspired Oxygen 100 Test 07/23/17 04:44 07/23/17 04:45 Lactic Acid Level 14.3 White Blood Count 19.1 Red Blood Count 3.18 Hemoglobin 9.5 Hematocrit 30.0 Mean Corpuscular Volume 94.6 Mean Corpuscular Hemoglobin 29.9 Mean Corpuscular Hemoglobin Concent 31.6 Red Cell Distribution Width 18.4 Platelet Count 117 Mean Platelet Volume 8.1 Neutrophils (%) (Auto) 89.8 Lymphocytes (%) (Auto) 2.4 Monocytes (%) (Auto) 7.2 Eosinophils (%) (Auto) 0.1 Basophils (%) (Auto) 0.5 Neutrophils # (Auto) 17.2 Lymphocytes # (Auto) 0.5 Monocytes # (Auto) 1.4 Eosinophils # (Auto) 0.0 Basophils # (Auto) 0.1 CBC Comment AUTO DIFF Differential Total Cells Counted 100 Neutrophils % (Manual) 74 Band Neutrophils % 16 Lymphocytes % 2 Monocytes % 7 Neutrophils # (Manual) 17.4 Myelocytes 1 Differential Comment FINAL DIFF MANUAL Dohle Bodies PRESENT Platelet Estimate LOW Platelet Morphology Comment NORMAL Ovalocytes 1+ [place] Cells 1+ Acanthocytes OCC Prothrombin Time 23.4 Prothromb Time International Ratio 2.3 Blood Urea Nitrogen 35 Creatinine 4.76 Random Glucose 100 Total Protein 5.6 Albumin 2.1 Calcium Level 7.6 Phosphorus Level 8.1 Magnesium Level 2.1 Alkaline Phosphatase 132 Aspartate Amino Transf (AST/SGOT) 56705 Alanine Aminotransferase (ALT/SGPT) 4501 Total Bilirubin 1.8 Sodium Level 143 Potassium Level 6.4 Chloride Level 108 Carbon Dioxide Level 12.5 Anion Gap 23 Estimat Glomerular Filtration Rate 12 Troponin I 5.61 Date/Time Source Procedure Growth Status 07/22/17 19:30 Blood Peripheral Aerobic Blood Culture - Preliminary NO GROWTH IN 1 DAY Resulted 07/22/17 19:30 Blood Peripheral Anaerobic Blood Culture - Preliminary NO GROWTH IN 1 DAY Resulted 07/23/17 01:33 Fluid Other Gram Stain - Final Resulted 07/23/17 01:33 Fluid Other Body Fluid Culture Pending Resulted 07/23/17 00:28 Urine Clean Catch Urine Culture Pending Received Result Diagram: 07/23/17 0445 07/23/17 0445 Imaging Last Impressions Chest X-Ray 07/23/17 0000 Signed Impressions: Service Date/Time: Sunday, July 23, 2017 02:37 - CONCLUSION: 1. Satisfactory position of endotracheal tube as above. Rj Miles MD Nephrostomy 07/22/17 0000 Signed Impressions: Service Date/Time: Sunday, July 23, 2017 01:43 - CONCLUSION: 1. Technically successful fluoroscopic and ultrasound-guided percutaneous left-sided nephrostomy catheter placement, as above. Miki Rich MD CT Angiography 07/22/17 0000 Signed Impressions: Service Date/Time: Saturday, July 22, 2017 20:01 - CONCLUSION: No evidence of pulmonary embolism. Small bilateral pleural effusions. Cole Leach MD Abdomen/Pelvis CT 07/22/17 0000 Signed Impressions: Service Date/Time: Saturday, July 22, 2017 21:30 - CONCLUSION: Severe hydronephrosis of the left kidney with a dilated hydroureter. 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 No evidence of bowel obstruction. Small bilateral pleural effusions. Cole Leach MD Assessment and Plan Problem List: (1) ESRD (end stage renal disease) ICD Codes: N18.6 - End stage renal disease Plan: Patient is seen during hemodialysis continue supportive care Daily dialysis for now Next dialysis tomorrow And follow progress Stop bicarbonate (2) Severe sepsis ICD Codes: A41.9 - Sepsis, unspecified organism; R65.20 - Severe sepsis without septic shock Status: Acute Plan: Patient has urinary tract infection and is being treated Zosyn and vancomycin (3) Lactic acidosis ICD Codes: E87.2 - Acidosis Status: Acute Plan: Due to sepsis follow cultures (4) Bladder cancer ICD Codes: C67.9 - Malignant neoplasm of bladder, unspecified Status: Acute Plan: Left hydronephrosis and nephrostomy placed (5) Acute on chronic systolic congestive heart failure ICD Codes: I50.23 - Acute on chronic systolic (congestive) heart failure Status: Acute (6) Acute respiratory failure with hypoxia ICD Codes: J96.01 - Acute respiratory failure with hypoxia Status: Acute Plan: On ventilator Sly Castelan MD Jul 23, 2017 11:53
--- NOTE | 2017-07-23 12:46 | EKG ---
Date Performed: 07/23/2017 Time Performed: 06:26:52 PTAGE: 87 years EKG: AV pacing Nonsustained atrial tachycardia Abnormal ECG PREVIOUS TRACING : 07/22/2017 22.37 Compared to prior tracing no significant change DOCTOR: Preston Kaur Interpretating Date/Time 07/23/2017 12:45:01
--- NOTE | 2017-07-23 13:22 | PD.ID.CON ---
History of Present Illness Service ID Consult Requested By Dr Almendarez Reason for Consult Sever sepsis Primary Care Physician Bharathi Mcdowell MD Diagnoses: History of Present Illness 87-year-old male with history of bladder cancer, ESRD, HTN, diabetes, HLD and recent pacemaker implantation who presented with respiratory distress yesterday while receiving dialysis. He presented hypoxic and hypoglycemic, febriloe with low grade fever, lactic acid as high as 11, went down slightly then up again to [address] of the abdomen showed severe hydronephrosis with a mass at the urethral vesicular junction and hydroureter Sp emergent placement of nephrostomy last night during nephrostomy tube insertion he went into cardiac arrest requiring intubation. urine is straw colored. sample for GS, C&S; urine markedly abnormal with innumerable WBC; clx P Blood clx growinfg a GNB Troponins elevated (2.62, 5.61) sp permanent pacemaker placed 6 months ago Pt remains critical, on high dose pressors he is cyanotic and non responsive On vent Review of Systems ROS Limitations: Clinical Condition, Intubated, Unresponsive Past Family Social History Allergies: Coded Allergies: No Known Allergies (Unverified , 04/11/16) Past Medical History Hypertension Hyperlipidemia End-stage renal disease on dialysis Permanent pacemaker in place Tobacco use Diabetes mellitus Past Surgical History Cataract surgery Permanent pacemaker placement Bladder surgery for recurrent cancer 8 Right knee replacement Active Ordered Medications Medications where reviewed in EMR Antibiotics Include: zosyn Family History non-contributory Social History Patient used to smoke 3 cigars daily, but has not smoked in 4 days. Alcohol occasionally. Denies any illicit drug Physical Exam Vital Signs Vital Signs Date Time Temp Pulse Resp B/P (MAP) Pulse Ox O2 Delivery O2 Flow Rate FiO2 07/23/17 12:00 59 07/23/17 12:00 98.0 62 14 122/50 (74) 100 07/23/17 12:00 60 07/23/17 11:22 100 60 07/23/17 10:00 92 07/23/17 08:00 97.8 90 15 110/56 (74) 100 07/23/17 08:00 90 07/23/17 08:00 60 07/23/17 07:45 98 60 07/23/17 06:00 80 07/23/17 06:00 94 07/23/17 04:14 100 80 07/23/17 04:00 105 07/23/17 04:00 97.9 98 14 94/56 (69) 99 07/23/17 04:00 70 07/23/17 02:28 105 156/60 07/23/17 02:10 97 80 07/23/17 02:00 80 07/23/17 01:30 0 100 07/23/17 01:05 0 100 07/23/17 00:55 100 07/23/17 00:00 105 07/22/17 23:15 50 85/50 07/22/17 23:00 100.3 62 24 94/55 (68) 95 07/22/17 22:40 07/22/17 20:00 62 35 113/53 (73) 99 Simple Mask 5.00 07/22/17 18:42 Nasal Cannula 2.00 07/22/17 18:09 Nasal Cannula 2.00 07/22/17 18:03 98.7 67 32 123/55 (77) 88 Physical Exam CONSTITUTIONAL/GENERAL: This is an adequately nourished patient, in no apparent distress. TUBES/LINES/DRAINS: SKIN: No jaundice, rashes, or lesions. Skin temperature appropriate. Not diaphoretic. HEAD: Atraumatic. Normocephalic. EYES: Pupils equal and round and reactive. Extraocular motions intact. No scleral icterus. No injection or drainage. Fundi not examined. ENT: Hearing not tested. Nose without bleeding or purulent drainage. Throat without visible erythema, exudates, masses, or lesions. NECK: Trachea midline. Supple, nontender. CARDIOVASCULAR: Regular rate and rhythm without murmurs, gallops, or rubs. No JVD. Peripheral pulses symmetric. RESPIRATORY/CHEST: Symmetric, unlabored respirations. Clear to auscultation. Breath sounds equal bilaterally. No wheezes, rales, or rhonchi. GASTROINTESTINAL: Abdomen soft, no reaction to palpation + distended. No hepato- splenomegaly, or palpable masses. No guarding. Bowel sounds present. GENITOURINARY: Without palpable bladder distension. Fragoso catheter in place with minimal Nephrostomy in place with serosangious fluid MUSCULOSKELETAL: Extremities without clubbing, + prominent cyanosis, cold to touch no edema. NEUROLOGICAL: sedated, intubated, unresponsive PSYCHIATRIC: unable to assess Laboratory Laboratory Tests Test 1/8/18 18:25 07/22/17 19:08 07/22/17 19:20 07/22/17 21:04 White Blood Count 21.0 Red Blood Count 2.99 Hemoglobin 8.9 Hematocrit 27.8 Mean Corpuscular Volume 92.8 Mean Corpuscular Hemoglobin 29.6 Mean Corpuscular Hemoglobin Concent 31.9 Red Cell Distribution Width 18.8 Platelet Count 165 Mean Platelet Volume 7.5 Neutrophils (%) (Auto) 92.3 Lymphocytes (%) (Auto) 1.4 Monocytes (%) (Auto) 6.2 Eosinophils (%) (Auto) 0.0 Basophils (%) (Auto) 0.1 Neutrophils # (Auto) 19.4 Lymphocytes # (Auto) 0.3 Monocytes # (Auto) 1.3 Eosinophils # (Auto) 0.0 Basophils # (Auto) 0.0 CBC Comment DIFF FINAL Differential Comment Prothrombin Time 15.4 Prothromb Time International Ratio 1.5 Blood Urea Nitrogen 28 Creatinine 4.23 Random Glucose 128 Calcium Level 8.2 Sodium Level 139 Potassium Level 5.2 Chloride Level 107 Carbon Dioxide Level 18.6 Anion Gap 13 Estimat Glomerular Filtration Rate 13 Troponin I 1.78 Blood Gas Puncture Site RT BRACHIAL Blood Gas Patient Temperature 98.6 Blood Gas HCO3 12 Blood Gas Base Excess -11.0 Blood Gas Oxygen Saturation 92 Arterial Blood pH 7.49 Arterial Blood Partial Pressure CO2 16 Arterial Blood Partial Pressure O2 72 Arterial Blood Oxygen Content 11.4 Arterial Blood Carboxyhemoglobin 2.2 Arterial Blood Methemoglobin 0.6 Blood Gas Hemoglobin 8.7 Oxygen Delivery Device NASAL CANNULA Blood Gas Liter Flow 3 Lactic Acid Level 11.7 Nasal Screen MRSA (PCR) MRSA DETECTED Test 07/22/17 22:20 07/23/17 00:28 07/23/17 01:54 07/23/17 02:35 Lactic Acid Level 9.3 14.2 Troponin I 2.62 Urine Color RED Urine Turbidity CLOUDY Urine pH 5.5 Urine Specific [place] 1.018 Urine Protein 100 Urine Glucose (UA) NEG Urine Ketones TRACE Urine Occult Blood LARGE Urine Nitrite NEG Urine Bilirubin NEG Urine Urobilinogen LESS THAN 2.0 Urine Leukocyte Esterase LARGE Urine RBC Urine WBC Urine WBC Clumps MANY Urine Bacteria FEW Urine Mucus FEW Urine Yeast (Budding) FEW Microscopic Urinalysis Comment CULTURE INDICATED Blood Gas Puncture Site ART LINE Blood Gas Patient Temperature 98.6 Blood Gas HCO3 9 Blood Gas Base Excess -17.3 Blood Gas Oxygen Saturation 97 Arterial Blood pH 7.22 Arterial Blood Partial Pressure CO2 23 Arterial Blood Partial Pressure O2 491 Arterial Blood Oxygen Content 11.6 Arterial Blood Carboxyhemoglobin 1.3 Arterial Blood Methemoglobin 1.5 Blood Gas Hemoglobin 7.5 Oxygen Delivery Device VENTILATOR Blood Gas Ventilator Setting PRVC/AC Blood Gas Inspired Oxygen 100 Test 07/23/17 04:44 07/23/17 04:45 Lactic Acid Level 14.3 White Blood Count 19.1 Red Blood Count 3.18 Hemoglobin 9.5 Hematocrit 30.0 Mean Corpuscular Volume 94.6 Mean Corpuscular Hemoglobin 29.9 Mean Corpuscular Hemoglobin Concent 31.6 Red Cell Distribution Width 18.4 Platelet Count 117 Mean Platelet Volume 8.1 Neutrophils (%) (Auto) 89.8 Lymphocytes (%) (Auto) 2.4 Monocytes (%) (Auto) 7.2 Eosinophils (%) (Auto) 0.1 Basophils (%) (Auto) 0.5 Neutrophils # (Auto) 17.2 Lymphocytes # (Auto) 0.5 Monocytes # (Auto) 1.4 Eosinophils # (Auto) 0.0 Basophils # (Auto) 0.1 CBC Comment AUTO DIFF Differential Total Cells Counted 100 Neutrophils % (Manual) 74 Band Neutrophils % 16 Lymphocytes % 2 Monocytes % 7 Neutrophils # (Manual) 17.4 Myelocytes 1 Differential Comment FINAL DIFF MANUAL Dohle Bodies PRESENT Platelet Estimate LOW Platelet Morphology Comment NORMAL Ovalocytes 1+ [place] Cells 1+ Acanthocytes OCC Prothrombin Time 23.4 Prothromb Time International Ratio 2.3 Blood Urea Nitrogen 35 Creatinine 4.76 Random Glucose 100 Total Protein 5.6 Albumin 2.1 Calcium Level 7.6 Phosphorus Level 8.1 Magnesium Level 2.1 Alkaline Phosphatase 132 Aspartate Amino Transf (AST/SGOT) 52281 Alanine Aminotransferase (ALT/SGPT) 4501 Total Bilirubin 1.8 Sodium Level 143 Potassium Level 6.4 Chloride Level 108 Carbon Dioxide Level 12.5 Anion Gap 23 Estimat Glomerular Filtration Rate 12 Troponin I 5.61 Date/Time Source Procedure Growth Status 07/22/17 19:30 Blood Peripheral Aerobic Blood Culture - Preliminary Gram Negative Jacob Resulted 07/22/17 19:30 Blood Peripheral Anaerobic Blood Culture - Preliminary NO GROWTH IN 1 DAY Resulted 07/23/17 01:33 Fluid Other Gram Stain - Final Resulted 07/23/17 01:33 Fluid Other Body Fluid Culture Pending Resulted 07/23/17 00:28 Urine Clean Catch Urine Culture Pending Received Result Diagram: 07/23/17 0445 07/23/17 0445 Imaging Last Impressions Chest X-Ray 07/23/17 0000 Signed Impressions: Service Date/Time: Sunday, July 23, 2017 02:37 - CONCLUSION: 1. Satisfactory position of endotracheal tube as above. Rj Miles MD Nephrostomy 07/22/17 0000 Signed Impressions: Service Date/Time: Sunday, July 23, 2017 01:43 - CONCLUSION: 1. Technically successful fluoroscopic and ultrasound-guided percutaneous left-sided nephrostomy catheter placement, as above. Miki Rich MD CT Angiography 07/22/17 0000 Signed Impressions: Service Date/Time: Saturday, July 22, 2017 20:01 - CONCLUSION: No evidence of pulmonary embolism. Small bilateral pleural effusions. Cole Leach MD Abdomen/Pelvis CT 07/22/17 0000 Signed Impressions: Service Date/Time: Saturday, July 22, 2017 21:30 - CONCLUSION: Severe hydronephrosis of the left kidney with a dilated hydroureter. 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 No evidence of bowel obstruction. Small bilateral pleural effusions. Cole Leach MD Assessment and Plan Assessment and Plan Severe sepsis from complicated UTI, GNB Obstructive uropathy sp R nephrostomy placement Multi organ system failure ESRD Bladder ca Acute VDRF Severe lactic acidosis with circulatory collapse NSTEMI Critically ill, unstable Very poor prognosis chacorta batres Discussed Condition With Dr Aubrey Ribeiro,Charisma Rain MD Jul 23, 2017 13:22
--- NOTE | 2017-07-23 15:23 | EKG ---
Date Performed: 07/22/2017 Time Performed: 18:17:37 PTAGE: 87 years EKG: ELECTRONIC VENTRICULAR PACEMAKER ABNORMAL RHYTHM ECG PREVIOUS TRACING 04/09/16 Paced rhythm is new since prior tracing. DOCTOR: Travis Pan Interpretating Date/Time 07/23/2017 15:22:20
--- NOTE | 2017-07-23 15:25 | EKG ---
Date Performed: 07/22/2017 Time Performed: 22:37:49 PTAGE: 87 years EKG: ELECTRONIC VENTRICULAR PACEMAKER ABNORMAL RHYTHM ECG INTERPRETATION BASED ON A DEFAULT AGE OF 40 YEARS PREVIOUS TRACING 07/22/17 Pacer appears to be tracking irregular atrial rate. Clinical cor relation is recommended. DOCTOR: Travis Pan Interpretating Date/Time 07/23/2017 16:46:18
--- NOTE | 2017-07-23 15:38 | MB ---
cc: DAYAN HAHN DATE OF CONSULTATION: 07/23/2017 HISTORY OF PRESENT ILLNESS: Mr. Champion is an 87-year-old male who presented with respiratory distress after dialysis yesterday and was brought to the emergency room by EMS. He was found to be hypoxic and hypoglycemic at that time. 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 He also has a history of chronic renal failure on hemodialysis. He also was noted to require intubation and was found to have elevated troponins on admission. ALLERGIES: NO KNOWN DRUG ALLERGIES. PAST MEDICAL HISTORY: 1. Hypertension. 2. Hyperlipidemia. 3. End-stage renal disease. 4. Tobacco use. 5. Diabetes. PAST SURGICAL HISTORY: 1. Pacemaker placement. 2. Cataract surgery. 3. Prior bladder surgery. 4. Right knee replacement. MEDICATIONS: Please refer to the chart. FAMILY HISTORY, SOCIAL HISTORY: Unobtainable, due to the patient being intubated. REVIEW OF SYSTEMS: Unobtainable. PHYSICAL EXAMINATION: VITAL SIGNS: Temperature 98, heart rate 62, respiratory rate 14, blood pressure 122/50. GENERAL: He is a well-developed, well-nourished 87 year-old male in no acute distress, currently intubated and sedated on a ventilator. HEENT: Normocephalic, atraumatic. Pupils are equal and round, reactive to light. Neck: Neck is supple. Breath sounds bilateral. Heart: Regular rate and rhythm. Abdomen: Soft, nontender, nondistended. : He has a Fragoso in place draining blood tinged urine, normal phallus. Testes descended. Extremities: No cyanosis, clubbing or edema. Neurologic: Unable to perform cranial nerve exam. Psychiatric: Unable to perform. LABORATORY VALUES: White count 19.1 today, hemoglobin 9.5, hematocrit 30.0, platelet count 117, sodium 143, potassium 6.4, chloride 108, CO2 12.5, BUN 35, creatinine 4.76, glucose is 100. Lactic acid is 14.3. PT is 23.4, INR is 2.3 Urinalysis shows many white cell clumps. IMAGING STUDIES: Demonstrates severe hydronephrosis of the left kidney with dilated hydroureter. 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 Heart enlarged with a pacemaker in place. No evidence of bilateral obstruction, bilateral small pleural effusions are noted. The patient underwent placement of a left percutaneous nephrostomy tube. ASSESSMENT: The patient is an 87 year-old male, admitted with respiratory distress, with possible sepsis and left hydronephrosis status post left percutaneous nephrostomy tube placement. Would maintain supportive measures at present. Maintain Fragoso catheter. If the patient is able to recover, he will eventually need cystoscopy to evaluate the bladder mass. Thank you for the consultation. Will follow with you. Dayan ARREGUIN /1:48 PM /3:27 PM
--- NOTE | 2017-07-23 15:40 | HHI.CCPN ---
Subjective Remarks/Hospital Course 07/24: 87-year-old very pleasant gentleman presents for respiratory distress. Patient was getting his dialysis done at [facility] when he started developing shortness of breath. When EMS arrived his oxygen saturation was in the mid 80s. They also checked his blood sugar was in the 60s. They started giving him D10. Put him on a nonrebreather and brought him to the emergency room. Upon arrival patient appeared to be lethargic but was answering questions to some extent appropriately. Bedside blood sugar after arrival was 65. Oxygen saturation was 88% on room air. His mental status somewhat improved after IV glucose insertion, however he remains tachypneic. The CT angiogram of the chest ruled out acute pulmonary embolism, and other acute respiratory disorder. The CT of the abdomen shows severe hydronephrosis with a mass at the urethral vesicular junction and hydroureter. Patient is on Coumadin at home however neither him nor his son are aware why. He also had a permanent pacemaker placed 6 months ago. 07/23: Underwent percutaneous nephrostomy by IR last night. Had brief episode of cardiac arrest during intervention for which she required CPR. Has required high doses of Levophed and remains sedated, orally intubated on mechanical ventilation. Was dialyzed earlier today. Objective Vital Signs Date Time Temp Pulse Resp B/P (MAP) Pulse Ox O2 Delivery O2 Flow Rate FiO2 07/23/17 14:49 95 60 07/23/17 14:00 60 07/23/17 12:00 98.0 14 122/50 (74) 07/22/17 20:00 Simple Mask 5.00 Intake and Output 07/23/17 07/23/17 07/24/17 08:00 16:00 00:00 Intake Total 16886 ml 250 ml Output Total 250 ml Balance 50607 ml 250 ml Result Diagram: 07/23/17 0445 07/23/17 0445 Other Results Laboratory Tests Test 07/22/17 19:08 07/23/17 01:54 Blood Gas Puncture Site RT BRACHIAL ART LINE Blood Gas Patient Temperature 98.6 98.6 Blood Gas HCO3 12 mmol/L (22-26) 9 mmol/L (22-26) Blood Gas Base Excess -11.0 mmol/L (-2-2) -17.3 mmol/L (-2-2) Blood Gas Oxygen Saturation 92 % (90-100) 97 % (90-100) Arterial Blood pH 7.49 (7.380-7.420) 7.22 (7.380-7.420) Arterial Blood Partial Pressure CO2 16 mmHg (38-42) 23 mmHg (38-42) Arterial Blood Partial Pressure O2 72 mmHG (61-120) 491 mmHg (61-120) Arterial Blood Oxygen Content 11.4 Vol % (12.0-20.0) 11.6 Vol % (12.0-20.0) Arterial Blood Carboxyhemoglobin 2.2 % (0-4) 1.3 % (0-4) Arterial Blood Methemoglobin 0.6 % (0-2) 1.5 % (0-2) Blood Gas Hemoglobin 8.7 G/DL (12.0-16.0) 7.5 G/DL (12.0-16.0) Oxygen Delivery Device NASAL CANNULA VENTILATOR Blood Gas Liter Flow 3 L/M Blood Gas Ventilator Setting PRVC/AC Blood Gas Inspired Oxygen 100 % Imaging Last 24 hours Impressions Chest X-Ray 07/22/172 Signed Impressions: Service Date/Time: Saturday, July 22, 2017 18:31 - CONCLUSION: Left subclavian bipolar pacer. The heart is enlarged. Lungs are clear. Cole Leach MD Objective Remarks HEENT/ Neuro: Sedated, orally intubated, Pallor present, no icterus, tongue/ mucosa moist Neck: No JVD Chest/Pulm: on mech vent, good air entry bilaterally, no wheezing or crackles CVS: S1-S2 regular, no murmur GI/abdomen: soft, nontender, bowel sounds sluggish. Percutaneous nephrostomy in place Extremities: warm bilaterally, no edema A/P Assessment and Plan Septic shock - Urethral obstruction at ureterovesical junction - Broad-spectrum antibiotics - Blood cultures, urine cultures - Aggressive IV fluids resuscitation. On Levophed 20 mics per minute and vasopressin 0.04 units per minute. Added hydrocortisone 50 mg IV every 6 hourly. - Central line placement - Levophed to keep MAP above 65 - Infectious disease consultation. Discussed with Dr. 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 D/W Dr. Bojorquez End-stage renal disease - Hemodialysis per nephrology NSTEMI based on elevated troponin - No EKG changes suggestive acute coronary syndrome - Monitor trend - 2-D echo - Cardiology consultation Acute Respiratory failure requiring mechanical ventilation - Continue mechanical ventilation, vent bundle, bronchodilators - Not ready for weaning trials due to severe metabolic acidosis and hemodynamic instability. Diabetes mellitus - Hold by mouth meds due to lactic acidosis - Insulin sliding scale Hypoglycemia - Due to sepsis - D50 IV when necessary DVT GI prophylaxis - Teds SCDs - Subcutaneous heparin - Pepcid Critical Care: The total critical care time was 35 minutes. Time to perform other separately billable procedures was not included in the critical care time. Nathan Mcfadden MD Jul 23, 2017 15:40
[2017-07-23 15:57] LABS: BICARBONATE 21.7 MEQ/L (21.0-32.0); CALCIUM 7.5 MG/DL (8.5-10.1); CREATININE 3.3 MG/DL (0.60-1.30)
[2017-07-23] MEDS ORDERED: VANCOMYCIN 1,000 MG/NS 250 ML IV ONE ×2 (16:00)
[2017-07-23] MEDS: HYDROCORTISONE SOD SUCCINATE 100 MG VIAL IV PUSH SCH (16:33)
--- NOTE | 2017-07-23 17:04 | PD.CONS ---
Consult Service Palliative Care . Consult Requested By Dr. Dk Mcfadden . Primary Care Physician Bharathi Mcdowell MD . Reason for Consultation a. To assist with evaluation and management of symptoms including: Pain, dyspnea, encephalopathy b. To assist medical decision maker(s) with: better understanding of current medical conditions; weighing benefits/burdens of medical treatment options; making medical treatment decisions. . HPI History of Present Illness Mr. Champion is an 87-year-old male with a history of ESRD on dialysis, CHF, diabetes, CAD, history of pneumonia, atrial fibrillation, hyperlipidemia, history of bladder cancer, BPH, arthritis and glaucoma. He presented to [facility] via EMS on 07/22/2017 and respiratory distress. Apparently the patient was having dialysis when he developed some shortness of breath. When EMS arrived the patient's oxygen saturation was in the mid 80s. His blood glucose was in the 60s and the patient received D50 in the ED. Patient was placed on a nonrebreather and started on D10. On arrival to the ED, the patient was lethargic but able to answer questions. His blood sugar at that time was 65. The patient appeared to be having difficulty breathing with an oxygen saturation of 88% on room air. Additional diagnostic data: * Vital signs: Pulse 67, respirations 32, BP 123/55, oxygen saturation 80% on room air and oral temperature of 98.7 * WBC: 21.0, hemoglobin 8.9, hematocrit 27.8, platelets 165, neutrophils 92.3% * Sodium: 139, potassium 5.2, chloride 107, carbon dioxide 18.6, glucose 128, calcium 8.2 * BUN: 28, creatinine 4.23, GFR 13 * Lactic acid: 11.7 * Troponin: 1.78 * PT: 15.4, INR 1.5 * UA indicating UTI, urine culture indicated. * Blood culture: + Pseudomonas * + MRSA * Chest x-ray showed an enlarged heart; lungs were clear. * CTA showed small pleural effusions bilaterally; there was no evidence of pulmonary embolism. * EKG showed a paced rhythm with a heart rate of 60 bpm On exam, the patient was tachypneic with increased work of breathing. ABG showed respiratory alkalosis with compensatory metabolic acidosis. UA indicative of UTI; patient has a history of bladder cancer and setup blood was noted in the urethral meatus. Patient received a liter of NS and empiric antibiotics (Vancomycin and Zosyn) were started while in the ED. Patient appears septic, subsequently admitted to critical care on pressor support. Nephrology and urology consults pending. The CT of the abdomen shows severe hydronephrosis with a mass at the urethral vesicular junction and hydroureter. Patient was emergently taken to IR for left -sided nephrostomy tube placement. While being prepped for nephrostomy tube placement the stopped breathing. Pulses were not palpable and CPR was initiated for PEA arrest. Patient was intubated and received epinephrine 2, bicarbonate 1, and calcium 1. ROSC after 2 rounds of CPR. Heart rate was in the 60s and BP was 160/70. Patient was stable at that time and plan for nephrostomy tube placement was resumed. Upon admission, patient's troponin was elevated at 1.78. NSTEMI. Cardiology was consulted. Recommendations for ischemic workup once stable; echocardiogram pending. Afebrile. White blood count down to 19.1; lactic acid of 12.8. Blood cultures growing Pseudomonas. Patient remains on Zosyn, infectious disease follow. Daily dialysis for now. Urology evaluated the patient; recommending cystoscopy in future when the patient is stable. Palliative Care was consulted to assist with symptom management and to discuss with the family the benefits and burdens of his current illnesses and the options regarding future care. On exam, the patient remains intubated on mechanical ventilator. Requiring ongoing pressor support, Levophed and Vasopressin. Nailbeds are dusky and feet are cool to touch bilaterally. Discussed with bedside nurse, Pao. Patient remains unresponsive status post sedation (on Fentanyl and Versed ) vacation 30 minutes. . Function/Cognitive Trajectory Pending further conversation with patient's family. . Review of Systems ROS Limitations: Clinical Condition, Intubated Constitutional: COMPLAINS OF: Diaphoretic episodes, Fatigue, Dizziness, DENIES : Generalized weakness Respiratory: COMPLAINS OF: Shortness of breath Integumentary: COMPLAINS OF: Nail changes (Dusky) Neurologic: COMPLAINS OF: Abnormal gait, Poor Balance Past Family Social History Coded Allergies: No Known Allergies (Unverified , 04/11/16) Past Medical History End-stage renal disease CHF Diabetes Coronary artery disease History of pneumonia Atrial fibrillation Coronary artery disease Hyperlipidemia History of bladder cancer BPH Arthritis Glaucoma . Past Surgical History A fistula placement Coronary artery bypass grafting Stent Bladder cancer removed Right knee arthroscopy Left knee replacement Cataracts AICD . Reported Medications Cozaar (Losartan Potassium) 100 Mg Tab 100 Mg PO DAILY Cozaar (Losartan Potassium) 100 Mg Tab 100 Mg PO DAILY Vitamin C (Ascorbic Acid) 500 Mg Cap 500 Mg PO DAILY Niacin 250 Mg Cap 500 Mg PO ONCE Multivitamin (Multivitamins) 1 Tab Tab 1 Tab PO DAILY Hydralazine HCl 100 Mg Tab 100 Mg PO BID Aspir-81 (Aspirin) 81 Mg Tab 81 Mg PO DAILY Glipizide 10 Mg Tab 10 Mg PO DAILY Calcitriol 0.25 Mcg Cap 0.25 Mcg PO DAILY Potassium Chloride inj (Potassium Chloride) 20 Meq Tab 1 Tab PO DAILY Isosorbide Mononitrate Er (Isosorbide Mononitrate) 30 Mg Tab 30 Mg PO DAILY . Current Medications Medications (Trade) Dose Ordered Sig/Juan Diego Route Start Time Stop Time Status Last Admin (Aspirin Chew) 81 mg DAILY PO 07/23/17 09:00 07/23/17 09:00 (Bumetanide) 1 mg BID PO 07/23/17 09:00 07/23/17 09:00 (Rocaltrol) 0.25 mcg DAILY PO 07/23/17 09:00 07/23/17 09:00 (Theragran) 1 tab DAILY PO 07/23/17 09:00 07/23/17 09:00 (Vitamin C) 500 mg DAILY PO 07/23/17 09:00 07/23/17 09:00 (NS Flush) 2 ml UNSCH PRN IV FLUSH 07/22/17 21:15 (NS Flush) 2 ml BID IV FLUSH 07/23/17 09:00 07/23/17 09:00 (Tylenol) 650 mg Q6H PRN PO 07/22/17 21:15 (Morphine Inj) 2 mg Q2H PRN IV PUSH 07/22/17 21:15 (Zofran Inj) 4 mg Q6H PRN IV PUSH 07/22/17 21:15 (Duoneb Neb) 1 ampule Q6HR NEB INH 07/22/17 22:00 07/23/17 14:48 (Duoneb Neb) 1 ampule Q2HR NEB PRN INH 07/22/17 21:15 (Heparin Inj) 5,000 units Q8H SQ 07/22/17 21:15 07/23/17 14:32 Miscellaneous Information 1 [id number] XX 07/22/17 21:15 (Chlorhexidine 2% Cloth) 3 pack Taper DAILY@04 TOP 07/23/17 04:00 07/19/18 03:59 (Chlorhexidine 2% Cloth) 3 pack UNSCH PRN TOP 07/22/17 21:15 (Anabela-Colace) 1 tab BID PO 07/23/17 09:00 07/23/17 09:00 (Milk Of Magnesia Liq) 30 ml Q12H PRN PO 07/22/17 21:15 (Senokot) 17.2 mg Q12H PRN PO 07/22/17 21:15 (Dulcolax Supp) 10 mg DAILY PRN RECTAL 07/22/17 21:15 (Lactulose Liq) 30 ml DAILY PRN PO 07/22/17 21:15 Pharmacy Profile Note 0 ml @ 0 mls/hr UNSCH OTHER 07/22/17 21:15 Piperacillin Sod/ Tazobactam Sod 50 ml @ 200 mls/hr Q6H IV 07/23/17 02:00 07/23/17 14:31 (D50w (Vial) Inj) 50 ml UNSCH PRN IV PUSH 07/22/17 23:30 07/22/17 23:38 (Glucagon Inj) 1 mg UNSCH PRN OTHER 07/22/17 23:30 (NovoLOG SUPPLEMENTAL SCALE) 1 ACHS SLIDING SCALE SQ 07/23/17 08:00 Norepinephrine Bitartrate 250 ml @ 7.5 mls/hr TITRATE PRN IV 07/23/17 00:15 07/23/17 06:00 Fentanyl Citrate 250 ml @ 5 mls/hr TITRATE PRN IV 07/23/17 01:30 07/23/17 02:05 Midazolam HCl 100 ml @ 2 mls/hr TITRATE PRN IV 07/23/17 01:30 07/23/17 02:05 Sodium Bicarbonate 150 meq/Dextrose 1,150 ml @ 100 mls/hr [id number] IV 07/23/17 02:00 07/23/17 12:30 Vasopressin 40 units/Dextrose 100 ml @ 6 mls/hr TITRATE PRN IV 07/23/17 02:15 07/23/17 02:28 Sodium Chloride 1,000 ml @ 0 mls/hr Q0M PRN OTHER 07/23/17 07:58 (Heparin Inj) 8,000 units UNSCH PRN IV FLUSH 07/23/17 08:00 Sodium Chloride 1,000 ml @ 200 mls/hr Q5H PRN IV 07/23/17 07:58 Sodium Chloride 1,000 ml @ 0 mls/hr Q0M PRN OTHER 07/23/17 07:58 (Mannitol Inj) 12.5 gm UNSCH PRN IV 07/23/17 08:00 Albumin Human 100 ml @ 60 mls/hr UNSCH PRN IV 07/23/17 08:00 (NS Flush) 5 ml UNSCH PRN IV FLUSH 07/23/17 08:00 (Heparin Inj) UNSCH PRN .XX 07/23/17 08:00 (Gentamicin (Dialysis) Inj) 20 mg UNSCH PRN OTHER 07/23/17 08:00 (Zofran Inj) 4 mg UNSCH PRN IV PUSH 07/23/17 08:00 (Tylenol) 650 mg UNSCH PRN PO 07/23/17 08:00 (Benadryl) 25 mg UNSCH PRN PO 07/23/17 08:00 (Nitrostat Sl) 0.4 mg UNSCH PRN SL 07/23/17 08:00 (Catapres) 0.1 mg UNSCH PRN PO 07/23/17 08:00 (Epogen Inj) 10,000 units UNSCH PRN IV PUSH 07/23/17 08:00 (Gelfoam 12 Mm/7 Mm Top) 1 foam UNSCH PRN TOP 07/23/17 08:00 Vancomycin HCl 1000 mg/Sodium Chloride 250 ml @ 250 mls/hr ONCE ONCE IV 07/23/17 16:00 07/23/17 16:59 (Pepcid Inj) 10 mg Q12HR IV PUSH 07/23/17 21:00 (SoluCORTEF INJ) 50 mg Q6HR IV PUSH 07/23/17 18:00 Family History Parents at an early age. Father with prostate cancer. Substance Use Tobacco: Smoked 3 cigars daily 15 years Alcohol: Occasional EtOH consumption; 1-3 drinks weekly Prescription med abuse: None known Illicits: None known Psychosocial History Patient is originally from [place]; he lived in [place] and then moved to [place], [place] approximately 6 years ago. He is a . He has 4 adult children (Abbie, Thomas, Ton and Ronaldo). 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 . Spiritual/Cultural Factors [place] . Documented care wishes: Patient's daughter, Vidhi, states the patient has completed some written advanced directives. She is attempting to locate the documents and will fax them to palliative care. . Today's verbally stated goals: Patient is currently intubated on mechanical ventilation. Nonresponsive off sedation approximately 30 minutes. Unable to participate and establishment of medical treatment goals. . Family/friends goals: Aggressive goals pending further conversations with patient's 4 children. . Ethical and Legal Issues Per [place] statutes, in the absence of written advanced directives healthcare proxy decision making would fall to the patient's 4 children. Physical Exam Vital Signs Date Time Temp Pulse Resp B/P (MAP) Pulse Ox O2 Delivery O2 Flow Rate FiO2 07/23/17 14:49 95 60 07/23/17 14:00 60 07/23/17 12:00 59 07/23/17 12:00 98.0 62 14 122/50 (74) 100 07/23/17 12:00 60 07/23/17 11:22 100 60 07/23/17 10:00 92 07/23/17 08:00 97.8 90 15 110/56 (74) 100 07/23/17 08:00 90 07/23/17 08:00 60 07/23/17 07:45 98 60 07/23/17 06:00 80 07/23/17 06:00 94 07/23/17 04:14 100 80 07/23/17 04:00 105 07/23/17 04:00 97.9 98 14 94/56 (69) 99 07/23/17 04:00 70 07/23/17 02:28 105 156/60 07/23/17 02:10 97 80 07/23/17 02:00 80 07/23/17 01:30 0 100 07/23/17 01:05 0 100 07/23/17 00:55 100 07/23/17 00:00 105 07/22/17 23:15 50 85/50 07/22/17 23:00 100.3 62 24 94/55 (68) 95 07/22/17 22:40 07/22/17 20:00 62 35 113/53 (73) 99 Simple Mask 5.00 07/22/17 18:42 Nasal Cannula 2.00 07/22/17 18:09 Nasal Cannula 2.00 07/22/17 18:03 98.7 67 32 123/55 (77) 88 . 07/23/17 07/24/17 19:00 07:00 Intake Total 250 ml Balance 250 ml Intake IV Total 250 ml . Exam CONSTITUTIONAL/GENERAL: This is a critically ill, elderly male patient currently intubated on mechanical ventilation TUBES/LINES/DRAINS: ETT, OGT, CVL, Art line, PIV x 1, Left nephrostomy tube, Fragoso catheter, SCDs, soft restraints SKIN: Nailbeds are dusky. No wounds seen anteriorly. Skin temperature appropriate. Not diaphoretic. HEAD: Atraumatic. Normocephalic. EYES: Pupils pinpoint. No scleral icterus. No injection or drainage. d. ENT: Unable to assess hearing . Nose without bleeding or purulent drainage. Mucous membranes dry NECK: Trachea midline. CARDIOVASCULAR: Regular rate and rhythm without murmurs, gallops, or rubs. No JVD. RESPIRATORY/CHEST: Intubated on mechanical ventilation. Clear to auscultation. Breath sounds equal bilaterally. No wheezes, rales, or rhonchi. GASTROINTESTINAL: Abdomen soft, non-tender, nondistended. GENITOURINARY: Without palpable bladder distension. Fragoso catheter draining tea- colored urine with sediment. Left nephrostomy tube with scant, pinkish MUSCULOSKELETAL: Extremities without clubbing or edema. No obvious deformities. Nailbeds and toes are dusky. Feet are cool to touch bilaterally LYMPHATICS: No palpable cervical or supraclavicular adenopathy. NEUROLOGICAL: Patient is nonresponsive off Versed and Fentanyl approximately 30 minutes. Does not arouse to verbal stimuli, does not withdraw to deep tactile stimuli. PSYCHIATRIC: Unable to assess given patient's clinical condition . Diagnostic Tests Laboratory Laboratory Tests Test 07/22/17 18:25 07/22/17 19:08 07/22/17 19:20 07/22/17 21:04 White Blood Count 21.0 TH/MM3 (4.0-11.0) Red Blood Count 2.99 MIL/MM3 (4.50-5.90) Hemoglobin 8.9 GM/DL (13.0-17.0) Hematocrit 27.8 % (39.0-51.0) Mean Corpuscular Volume 92.8 FL (80.0-100.0) Mean Corpuscular Hemoglobin 29.6 PG (27.0-34.0) Mean Corpuscular Hemoglobin Concent 31.9 % (32.0-36.0) Red Cell Distribution Width 18.8 % (11.6-17.2) Platelet Count 165 TH/MM3 (150-450) Mean Platelet Volume 7.5 FL (7.0-11.0) Neutrophils (%) (Auto) 92.3 % (16.0-70.0) Lymphocytes (%) (Auto) 1.4 % (9.0-44.0) Monocytes (%) (Auto) 6.2 % (0.0-8.0) Eosinophils (%) (Auto) 0.0 % (0.0-4.0) Basophils (%) (Auto) 0.1 % (0.0-2.0) Neutrophils # (Auto) 19.4 TH/MM3 (1.8-7.7) Lymphocytes # (Auto) 0.3 TH/MM3 (1.0-4.8) Monocytes # (Auto) 1.3 TH/MM3 (0-0.9) Eosinophils # (Auto) 0.0 TH/MM3 (0-0.4) Basophils # (Auto) 0.0 TH/MM3 (0-0.2) CBC Comment DIFF FINAL Differential Comment Prothrombin Time 15.4 SEC (9.8-11.6) Prothromb Time International Ratio 1.5 RATIO Blood Urea Nitrogen 28 MG/DL (7-18) Creatinine 4.23 MG/DL (0.60-1.30) Random Glucose 128 MG/DL (74-106) Calcium Level 8.2 MG/DL (8.5-10.1) Sodium Level 139 MEQ/L (136-145) Potassium Level 5.2 MEQ/L (3.5-5.1) Chloride Level 107 MEQ/L (98-107) Carbon Dioxide Level 18.6 MEQ/L (21.0-32.0) Anion Gap 13 MEQ/L (5-15) Estimat Glomerular Filtration Rate 13 ML/MIN (>89) Troponin I 1.78 NG/ML (0.02-0.05) Blood Gas Puncture Site RT BRACHIAL Blood Gas Patient Temperature 98.6 Blood Gas HCO3 12 mmol/L (22-26) Blood Gas Base Excess -11.0 mmol/L (-2-2) Blood Gas Oxygen Saturation 92 % (90-100) Arterial Blood pH 7.49 (7.380-7.420) Arterial Blood Partial Pressure CO2 16 mmHg (38-42) Arterial Blood Partial Pressure O2 72 mmHG (61-120) Arterial Blood Oxygen Content 11.4 Vol % (12.0-20.0) Arterial Blood Carboxyhemoglobin 2.2 % (0-4) Arterial Blood Methemoglobin 0.6 % (0-2) Blood Gas Hemoglobin 8.7 G/DL (12.0-16.0) Oxygen Delivery Device NASAL CANNULA Blood Gas Liter Flow 3 L/M Lactic Acid Level 11.7 mmol/L (0.4-2.0) Nasal Screen MRSA (PCR) MRSA DETECTED (NOT DETECT) Test 07/22/17 22:20 07/23/17 00:28 07/23/17 01:54 07/23/17 02:35 Lactic Acid Level 9.3 mmol/L (0.4-2.0) 14.2 mmol/L (0.4-2.0) Troponin I 2.62 NG/ML (0.02-0.05) Urine Color RED (YELLW/STRAW) Urine Turbidity CLOUDY (CLEAR) Urine pH 5.5 (5.0-8.5) Urine Specific George 1.018 (1.002-1.035) Urine Protein 100 mg/dL (NEG-TRACE) Urine Glucose (UA) NEG mg/dL (NEG) Urine Ketones TRACE mg/dL (NEG) Urine Occult Blood LARGE (NEG) Urine Nitrite NEG (NEG) Urine Bilirubin NEG (NEG) Urine Urobilinogen LESS THAN 2.0 MG/DL (LESS Urine Leukocyte Esterase LARGE (NEG) Urine RBC /hpf (0-3) Urine WBC /hpf (0-5) Urine WBC Clumps MANY (NONE) Urine Bacteria FEW /hpf (NONE) Urine Mucus FEW /lpf (OCC) Urine Yeast (Budding) FEW (NONE) Microscopic Urinalysis Comment CULTURE INDICATED Blood Gas Puncture Site ART LINE Blood Gas Patient Temperature 98.6 Blood Gas HCO3 9 mmol/L (22-26) Blood Gas Base Excess -17.3 mmol/L (-2-2) Blood Gas Oxygen Saturation 97 % (90-100) Arterial Blood pH 7.22 (7.380-7.420) Arterial Blood Partial Pressure CO2 23 mmHg (38-42) Arterial Blood Partial Pressure O2 491 mmHg (61-120) Arterial Blood Oxygen Content 11.6 Vol % (12.0-20.0) Arterial Blood Carboxyhemoglobin 1.3 % (0-4) Arterial Blood Methemoglobin 1.5 % (0-2) Blood Gas Hemoglobin 7.5 G/DL (12.0-16.0) Oxygen Delivery Device VENTILATOR Blood Gas Ventilator Setting PRVC/AC Blood Gas Inspired Oxygen 100 % Test 07/23/17 04:44 07/23/17 04:45 07/23/17 14:10 Lactic Acid Level 14.3 mmol/L (0.4-2.0) 12.8 mmol/L (0.4-2.0) White Blood Count 19.1 TH/MM3 (4.0-11.0) Red Blood Count 3.18 MIL/MM3 (4.50-5.90) Hemoglobin 9.5 GM/DL (13.0-17.0) Hematocrit 30.0 % (39.0-51.0) Mean Corpuscular Volume 94.6 FL (80.0-100.0) Mean Corpuscular Hemoglobin 29.9 PG (27.0-34.0) Mean Corpuscular Hemoglobin Concent 31.6 % (32.0-36.0) Red Cell Distribution Width 18.4 % (11.6-17.2) Platelet Count 117 TH/MM3 (150-450) Mean Platelet Volume 8.1 FL (7.0-11.0) Neutrophils (%) (Auto) 89.8 % (16.0-70.0) Lymphocytes (%) (Auto) 2.4 % (9.0-44.0) Monocytes (%) (Auto) 7.2 % (0.0-8.0) Eosinophils (%) (Auto) 0.1 % (0.0-4.0) Basophils (%) (Auto) 0.5 % (0.0-2.0) Neutrophils # (Auto) 17.2 TH/MM3 (1.8-7.7) Lymphocytes # (Auto) 0.5 TH/MM3 (1.0-4.8) Monocytes # (Auto) 1.4 TH/MM3 (0-0.9) Eosinophils # (Auto) 0.0 TH/MM3 (0-0.4) Basophils # (Auto) 0.1 TH/MM3 (0-0.2) CBC Comment AUTO DIFF Differential Total Cells Counted 100 Neutrophils % (Manual) 74 % (16-70) Band Neutrophils % 16 % (0-6) Lymphocytes % 2 % (9-44) Monocytes % 7 % (0-8) Neutrophils # (Manual) 17.4 TH/MM3 (1.8-7.7) Myelocytes 1 % (0-0) Differential Comment FINAL DIFF MANUAL Dohle Bodies PRESENT (NONE SEEN) Platelet Estimate LOW (NORMAL) Platelet Morphology Comment NORMAL (NORMAL) Ovalocytes 1+ (NORMAL) Kary Cells 1+ (NORMAL) Acanthocytes OCC (NORMAL) Prothrombin Time 23.4 SEC (9.8-11.6) Prothromb Time International Ratio 2.3 RATIO Blood Urea Nitrogen 35 MG/DL (7-18) 26 MG/DL (7-18) Creatinine 4.76 MG/DL (0.60-1.30) 3.30 MG/DL (0.60-1.30) Random Glucose 100 MG/DL (74-106) 154 MG/DL (74-106) Total Protein 5.6 GM/DL (6.4-8.2) Albumin 2.1 GM/DL (3.4-5.0) Calcium Level 7.6 MG/DL (8.5-10.1) 7.5 MG/DL (8.5-10.1) Phosphorus Level 8.1 MG/DL (2.5-4.9) Magnesium Level 2.1 MG/DL (1.5-2.5) Alkaline Phosphatase 132 U/L (45-117) Aspartate Amino Transf (AST/SGOT) 21145 U/L (15-37) Alanine Aminotransferase (ALT/SGPT) 4501 U/L (12-78) Total Bilirubin 1.8 MG/DL (0.2-1.0) Sodium Level 143 MEQ/L (136-145) 143 MEQ/L (136-145) Potassium Level 6.4 MEQ/L (3.5-5.1) 4.5 MEQ/L (3.5-5.1) Chloride Level 108 MEQ/L (98-107) 101 MEQ/L (98-107) Carbon Dioxide Level 12.5 MEQ/L (21.0-32.0) 21.7 MEQ/L (21.0-32.0) Anion Gap 23 MEQ/L (5-15) 20 MEQ/L (5-15) Estimat Glomerular Filtration Rate 12 ML/MIN (>89) 18 ML/MIN (>89) Troponin I 5.61 NG/ML (0.02-0.05) Result Diagram: 07/23/17 0445 07/23/17 1410 Microbiology Microbiology Date/Time Source Procedure Growth Status 07/22/17 19:30 Blood Peripheral Aerobic Blood Culture - Preliminary Pseudomonas Aeruginosa Resulted 07/22/17 19:30 Blood Peripheral Anaerobic Blood Culture - Preliminary NO GROWTH IN 1 DAY Resulted 07/22/17 19:20 Blood Peripheral Aerobic Blood Culture - Preliminary Gram Negative Jacob Resulted 07/22/17 19:20 Blood Peripheral Anaerobic Blood Culture - Preliminary NO GROWTH IN 1 DAY Resulted 07/23/17 01:33 Fluid Other Gram Stain - Final Resulted 07/23/17 01:33 Fluid Other Body Fluid Culture Pending Resulted 07/23/17 10:33 Sputum Endotracheal Gram Stain Pending Received 07/23/17 10:33 Sputum Endotracheal Sputum Culture Pending Received 07/23/17 00:28 Urine Clean Catch Urine Culture Pending Received Imaging Last 72 hours Impressions Chest X-Ray 07/23/17 0000 Signed Impressions: Service Date/Time: Sunday, July 23, 2017 02:37 - CONCLUSION: 1. Satisfactory position of endotracheal tube as above. Rj Miles MD Chest X-Ray 07/23/17 0000 Signed Impressions: Service Date/Time: Sunday, July 23, 2017 00:25 - CONCLUSION: 1. Right subclavian central line in good position without pneumothorax. Miki Rich MD Chest X-Ray 07/22/17 1812 Signed Impressions: Service Date/Time: Saturday, July 22, 2017 18:31 - CONCLUSION: Left subclavian bipolar pacer. The heart is enlarged. Lungs are clear. Cole Leach MD Nephrostomy 07/22/17 0000 Signed Impressions: Service Date/Time: Sunday, July 23, 2017 01:43 - CONCLUSION: 1. Technically successful fluoroscopic and ultrasound-guided percutaneous left-sided nephrostomy catheter placement, as above. Miki Rich MD CT Angiography 07/22/17 0000 Signed Impressions: Service Date/Time: Saturday, July 22, 2017 20:01 - CONCLUSION: No evidence of pulmonary embolism. Small bilateral pleural effusions. Cole Leach MD Abdomen/Pelvis CT 07/22/17 0000 Signed Impressions: Service Date/Time: Saturday, July 22, 2017 21:30 - CONCLUSION: Severe hydronephrosis of the left kidney with a dilated hydroureter. 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 No evidence of bowel obstruction. Small bilateral pleural effusions. Cole Leach MD . Procedures 07/23/2017: Central line placement 07/23/2017: Endotracheal intubation 07/23/2017: Arterial line placement . Patient/Family Conference Present at Family Conference: Spoke with son (Thomas) and daughter (Abbie) via telephone. . Family Conference Location: Telephone Issues Discussed: * Palliative care role, purpose, approach * Patients general health, functional status, and cognitive changes in the months leading up to the current hospitalization * Patient/family understanding of the current medical problems * Patient/family understanding of prognosis * Patients goals of care as best understood from advance directives and/or conversations and/or values * Current medical treatment options and benefits/burdens of those options * Questions answered to the best of my ability * Palliative care contact information provided . Assessment and Plan Disease Oriented Problem List: (1) Diabetes (2) Hypoglycemia (3) Hydronephrosis (4) Septic shock (5) Severe sepsis (6) Elevated troponin (7) Acute respiratory failure with hypoxia (8) ESRD (end stage renal disease) (9) Bladder cancer (10) Pleural effusion (11) Lactic acidosis Symptom Scale: (1) Pain 0-10 Scale: Unable to quantify (2) Dyspnea 0-10 Scale: Unable to quantify (3) Encephalopathy 0-10 Scale: Unable to quantify Pertinent Non-Medical Issues Psychosocial: Patient is originally from [place]; he lived in [place] and then moved to [place], [place] approximately 6 years ago. He is a . He has 4 adult children (Abbie, Thomas, Ton and Ronaldo). 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 Spiritual: [employer] [place] Legal: Patient's daughter, Vidhi, states the patient has completed some written advanced directives. She is attempting to locate the documents and will fax them to palliative care. In the absence of written advanced directives healthcare proxy decision-making falls to the patient's 4 adult children. Ethical issues impacting care: No known ethical issues impacting care at this time. . Important Contacts [place] Champion, son: [phone] Abbie, daughter: [phone] or [phone] (cell) Ton Champion, son: [phone] Ronaldo Champion, son: phone number not known at this time. . Prognosis Patient is an 87-year-old male with a complex medical history who is currently admitted with septic shock, NSTEMI based on elevated troponin, hydronephrosis with obstructing mass and end-stage renal disease status post PEA arrest. Patient remains sedated and intubated on mechanical ventilation requiring pressor support. He is critically ill and may not survive this hospitalization. If he does survive he will be at high risk for further decline with ongoing complications. . Code Status: Full Code Plan * FULL CODE * Decision-making: Patient is currently unresponsive; it is unclear if the patient will regain capacity to participate in medical decision making. Per [place] statutes, in the absence of written advanced directives healthcare proxy decision-making falls to the patient's 4 adult children. * Patient's daughter, Vidhi, states the patient has completed some written advanced directives. She believes she is the designated health care surrogate decision maker. She is attempting to locate the documents and will fax them to palliative care. * AGGRESSIVE GOALS * Discussed with bedside nurse, Pao, who was later contacted with children' s names/phone numbers. * Spoke to patient's son (Thomas) and daughter (Vidhi) via telephone. Palliative care contact information was provided. * Symptom management-encephalopathy: Patient remains unresponsive during sedation vacation. Fentanyl and Versed were help 30 minutes prior to exam. Patient does not arouse to verbal stimuli; he does not withdraw to deep tactile stimuli. Will continue to monitor. * Symptom management-pain: Patient shows no signs of nonverbal pain on and off sedation. Factors that could contribute to pain would include recent CPR, intubation, nephrostomy tube placement, invasive lines (arterial line, central line, peripheral IV), Fragoso catheter, impaired circulation, immobility, bedbound status. Fentanyl and Versed can be titrated. PRN acetaminophen and morphine are ordered but have not been required. Palliative care will continue to monitor and make recommendations as indicated. * Palliative care will continue to follow this patient throughout his hospitalization to establish trust, assist with symptom management and clarification of medical treatment goals. Thank you for the opportunity to participate in the care of Mr. Bryson . Attestation To help prompt me to consider important information that might be impacting today's encounter and assessment, information from prior notes written by myself or my colleagues may have been "brought forward" into today's note. My signature on this note, however, is an attestation that I personally performed the exam, history, and/or decision-making noted today, and, unless otherwise indicated, the interactions with patient, family, and staff as well as the review of records all occurred today. I also attest that the listed assessment and stated plan reflect my best clinical judgment today based on the combination of historical information, prior notes, and today's exam/ interactions. When time spent is documented, it refers only to time spent today by the signer, or if indicated, combined time spent today by collaborating physician/nurse practitioner. . Shira Garcia Jul 23, 2017 17:04
[2017-07-23] MEDS: FAMOTIDINE 20 MG/2 ML VIAL IV PUSH SCH (20:20)
[2017-07-23] MEDS ORDERED: MUPIROCIN 2% OINT 1 APPLIC/GM SYR NASAL SCH (21:00)
[2017-07-23] MEDS ORDERED: CHLORHEXIDINE GLUCONATE 2 % 1 PACK (2 CLOTHS)(extra cloths) TOPICAL PRN ×2 (21:00→22:45)
[2017-07-23] MEDS ORDERED: DOBUTamine PREMIX DRIP 250 ML IV PRN (23:52)
[2017-07-24] VITALS (19 sets, daily range): BP systolic 125–146; BP diastolic 38–65; PULSE 59–89; RESP 18–29; TEMP 98.8–99.9; O2SAT 90–100
[2017-07-24] MEDS: HYDROCORTISONE SOD SUCCINATE 100 MG VIAL IV PUSH SCH ×4 (00:15→18:03)
[2017-07-24] MEDS ORDERED: TERBUTALINE INJ 1 MG/ML AMP SQ PRN (01:00)
[2017-07-24] MEDS: DOPamine INJ PREMIX 500 ML IV PRN ×3 (01:10→21:26)
[2017-07-24] MEDS: NOREPINEPHRINE 4 MG/D5W 250 ML IV PRN ×3 (01:12→08:00)
[2017-07-24] MEDS: PIPERACIL-TAZO 2.25 GM PREMIX 50 ML IV SCH ×4 (02:05→20:07)
[2017-07-24] MEDS: RESP: ALBUTEROL 2.5 MG/IPRATROPIUM 0.5 MG NEB (SCH) INH ×4 (03:24→21:15)
[2017-07-24] MEDS ORDERED: CHLORHEXIDINE GLUCONATE 2 % 1 PACK (2 CLOTHS)(taper/protocol) TOPICAL SCH ×2 (04:00)
[2017-07-24] MEDS: HEPARIN SODIUM - SQ 10,000 UNITS/ML VIAL SQ SCH ×3 (05:28→20:08)
--- NOTE | 2017-07-24 05:56 | RADRPT ---
EXAM DATE/TIME: 07/24/2017 04:24 [facility] COMPARISON: CHEST SINGLE AP, July 23, 2017, 2:37. INDICATIONS : Shortness of breath. MEDICAL HISTORY : Hypertension. Carcinoma, bladder. End stage renal disease, Hyperlipidemia, Diabetes SURGICAL HISTORY : Total knee replacement, right. Pacemaker. Cataract surgery, Bladder surgery ENCOUNTER: Subsequent ACUITY: 3 days PAIN SCORE: Non-responsive. LOCATION: Bilateral chest FINDINGS: The cardiac silhouette is enlarged in transverse diameter. There is left lower lobe atelectasis versu s pneumonia. Support lines and tubes are in satisfactory position. A small right sided effusion is pr esent. CONCLUSION: 1. Left lower lobe atelectasis versus pneumonia. There has been no significant change when compared t o the prior exam. Rj Miles MD on July 24, 2017 at 5:53 Board Certified Radiologist. This report was verified electronically.
[2017-07-24] MEDS ORDERED: SODIUM BICARBONATE 8.4% INJ 50 MEQ/50 ML SYR IV PUSH ONE ×3 (06:15→06:30)
[2017-07-24 06:52] LABS: HEMATOCRIT 34.6 % (39.0-51.0); HEMOGLOBIN 9.9 GM/DL (13.0-17.0); MEAN CELL VOLUME 100.8 FL (80.0-100.0); MEAN CORPUSCULAR HEMOGLOBIN 28.9 PG (27.0-34.0); MEAN PLATELET VOLUME 8.4 FL (7.0-11.0); PLATELET COUNT 124 TH/MM3 (150-450); RED BLOOD COUNT 3.43 MIL/MM3 (4.50-5.90); RED CELL DISTRIBUTION WIDTH 20.2 % (11.6-17.2); WHITE BLOOD COUNT 25.2 TH/MM3 (4.0-11.0)
[2017-07-24 06:55] LABS: MEAN CORPUSCULAR HGB CONC 28.7 % (32.0-36.0)
[2017-07-24 07:17] LABS: ALBUMIN 2.1 GM/DL (3.4-5.0); BICARBONATE 9.3 MEQ/L (21.0-32.0); CALCIUM 6.9 MG/DL (8.5-10.1); CALCIUM-PROTEIN CORRECTED 7.7 MG/DL (8.5-10.1); CREATININE 4.63 MG/DL (0.60-1.30); MAGNESIUM 2.5 MG/DL (1.5-2.5); PHOSPHORUS 11.2 MG/DL (2.5-4.9); RANDOM VANCOMYCIN 17.9 COMMENT; TOTAL BILIRUBIN ADULT 3.6 MG/DL (0.2-1.0); TOTAL PROTEIN 5.6 GM/DL (6.4-8.2)
--- NOTE | 2017-07-24 07:42 | PD.CARD.PN ---
Subjective Subjective Remarks intubated, sedated and mechanically ventilated Objective Medications Current Medications Medications (Trade) Dose Ordered Sig/Juan Diego Route Start Time Stop Time Status Last Admin (Aspirin Chew) 81 mg DAILY PO 07/23/17 09:00 07/23/17 09:00 (Bumetanide) 1 mg BID PO 07/23/17 09:00 07/23/17 20:20 (Rocaltrol) 0.25 mcg DAILY PO 07/23/17 09:00 07/23/17 09:00 (Theragran) 1 tab DAILY PO 07/23/17 09:00 07/23/17 09:00 (Vitamin C) 500 mg DAILY PO 07/23/17 09:00 07/23/17 09:00 (NS Flush) 2 ml UNSCH PRN IV FLUSH 07/22/17 21:15 (NS Flush) 2 ml BID IV FLUSH 07/23/17 09:00 07/23/17 20:20 (Tylenol) 650 mg Q6H PRN PO 07/22/17 21:15 (Morphine Inj) 2 mg Q2H PRN IV PUSH 07/22/17 21:15 (Zofran Inj) 4 mg Q6H PRN IV PUSH 07/22/17 21:15 (Duoneb Neb) 1 ampule Q6HR NEB INH 07/22/17 22:00 07/24/17 03:24 (Duoneb Neb) 1 ampule Q2HR NEB PRN INH 07/22/17 21:15 (Heparin Inj) 5,000 units Q8H SQ 07/22/17 21:15 07/24/17 05:28 (Anabela-Colace) 1 tab BID PO 07/23/17 09:00 07/23/17 20:19 (Milk Of Magnesia Liq) 30 ml Q12H PRN PO 07/22/17 21:15 (Senokot) 17.2 mg Q12H PRN PO 07/22/17 21:15 (Dulcolax Supp) 10 mg DAILY PRN RECTAL 07/22/17 21:15 (Lactulose Liq) 30 ml DAILY PRN PO 07/22/17 21:15 Pharmacy Profile Note 0 ml @ 0 mls/hr UNSCH OTHER 07/22/17 21:15 Piperacillin Sod/ Tazobactam Sod 50 ml @ 200 mls/hr Q6H IV 07/23/17 02:00 07/24/17 02:05 (D50w (Vial) Inj) 50 ml UNSCH PRN IV PUSH 07/22/17 23:30 07/22/17 23:38 (Glucagon Inj) 1 mg UNSCH PRN OTHER 07/22/17 23:30 (NovoLOG SUPPLEMENTAL SCALE) 1 ACHS SLIDING SCALE SQ 07/23/17 08:00 Norepinephrine Bitartrate 250 ml @ 7.5 mls/hr TITRATE PRN IV 07/23/17 00:15 07/24/17 04:46 Fentanyl Citrate 250 ml @ 5 mls/hr TITRATE PRN IV 07/23/17 01:30 07/23/17 22:53 Midazolam HCl 100 ml @ 2 mls/hr TITRATE PRN IV 07/23/17 01:30 07/23/17 22:52 Vasopressin 40 units/Dextrose 100 ml @ 6 mls/hr TITRATE PRN IV 07/23/17 02:15 07/23/17 02:28 Sodium Chloride 1,000 ml @ 0 mls/hr Q0M PRN OTHER 07/23/17 07:58 (Heparin Inj) 8,000 units UNSCH PRN IV FLUSH 07/23/17 08:00 Sodium Chloride 1,000 ml @ 200 mls/hr Q5H PRN IV 07/23/17 07:58 Sodium Chloride 1,000 ml @ 0 mls/hr Q0M PRN OTHER 07/23/17 07:58 (Mannitol Inj) 12.5 gm UNSCH PRN IV 07/23/17 08:00 Albumin Human 100 ml @ 60 mls/hr UNSCH PRN IV 07/23/17 08:00 (NS Flush) 5 ml UNSCH PRN IV FLUSH 07/23/17 08:00 (Heparin Inj) UNSCH PRN .XX 07/23/17 08:00 (Gentamicin (Dialysis) Inj) 20 mg UNSCH PRN OTHER 07/23/17 08:00 (Zofran Inj) 4 mg UNSCH PRN IV PUSH 07/23/17 08:00 (Tylenol) 650 mg UNSCH PRN PO 07/23/17 08:00 (Benadryl) 25 mg UNSCH PRN PO 07/23/17 08:00 (Nitrostat Sl) 0.4 mg UNSCH PRN SL 07/23/17 08:00 (Catapres) 0.1 mg UNSCH PRN PO 07/23/17 08:00 (Epogen Inj) 10,000 units UNSCH PRN IV PUSH 07/23/17 08:00 (Gelfoam 12 Mm/7 Mm Top) 1 foam UNSCH PRN TOP 07/23/17 08:00 (Pepcid Inj) 10 mg Q12HR IV PUSH 07/23/17 21:00 07/23/17 20:20 (SoluCORTEF INJ) 50 mg Q6HR IV PUSH 07/23/17 18:00 07/24/17 05:28 Sodium Bicarbonate 150 meq/Dextrose 1,150 ml @ 50 mls/hr Q23H IV 07/23/17 20:45 07/23/17 20:45 Miscellaneous Information Patient in critical care unit? Ass... Q361D .XX 07/23/17 22:45 (Bactroban Nasal 2% Oint) 1 applic BID NASAL 07/24/17 09:00 (Chlorhexidine 2% Cloth) 3 pack DAILY@04 TOPICAL 07/24/17 04:00 07/28/17 04:01 (Chlorhexidine 2% Cloth) 3 pack UNSCH PRN TOPICAL 07/23/17 22:45 07/28/17 22:36 Dopamine HCl/ Dextrose 500 ml @ 12.476 mls/ hr TITRATE PRN IV 07/24/17 01:00 07/24/17 01:10 (Brethine Inj) 1 mg UNSCH PRN SQ 07/24/17 01:00 Vital Signs / I&O Vital Signs Date Time Temp Pulse Resp B/P (MAP) Pulse Ox O2 Delivery O2 Flow Rate FiO2 07/24/17 04:46 67 137/43 07/24/17 04:00 68 07/24/17 04:00 99.0 68 18 125/48 (73) 07/24/17 04:00 100 07/24/17 03:25 90 100 07/24/17 02:00 89 07/24/17 01:12 87 138/44 07/24/17 01:10 79 129/38 07/24/17 01:06 90 100 07/24/17 00:15 68 126/44 07/24/17 00:00 88 07/24/17 00:00 60 07/24/17 00:00 99.9 82 21 126/46 (72) 07/23/17 22:53 69 125/47 07/23/17 22:00 77 07/23/17 20:12 78 117/51 07/23/17 20:00 60 07/23/17 20:00 98.7 85 20 112/50 (70) 97 07/23/17 20:00 87 07/23/17 19:55 92 60 07/23/17 18:00 95 07/23/17 16:00 60 07/23/17 16:00 98.1 60 14 99/52 (68) 100 07/23/17 16:00 88 07/23/17 14:49 95 60 07/23/17 14:00 60 07/23/17 12:00 59 07/23/17 12:00 98.0 62 14 122/50 (74) 100 07/23/17 12:00 60 07/23/17 11:22 100 60 07/23/17 10:00 92 07/23/17 08:00 97.8 90 15 110/56 (74) 100 07/23/17 08:00 90 07/23/17 08:00 60 07/23/17 07:45 98 60 I/O 07/23/17 07/23/17 07/23/17 07/24/17 07/24/17 07/24/17 07:00 15:00 23:00 07:00 15:00 23:00 Intake Total 49556 ml 250 ml 293 ml 3910 ml Output Total 250 ml 10 ml 20 ml Balance 63858 ml 250 ml 283 ml 3890 ml Intake IV Total 9381 ml 250 ml 293 ml 3910 ml Packed Cells 1300 ml Output Urine Total 100 ml 10 ml 10 ml Drainage Total 150 ml 0 ml 10 ml Physical Exam GENERAL: SKIN: Warm and dry. HEAD: Atraumatic. Normocephalic. ENT: No nasal bleeding or discharge. NECK: Trachea midline. No JVD. CARDIOVASCULAR: Regular rate and rhythm. No murmurs RESPIRATORY: No accessory muscle use. Clear to auscultation. decreased breath sounds to bilateral bases GASTROINTESTINAL: Abdomen soft, non-tender, nondistended. MUSCULOSKELETAL: Extremities without clubbing, cyanosis, or edema NEUROLOGICAL: sedated and intubated Laboratory Laboratory Tests Test 07/23/17 14:10 07/23/17 23:15 07/24/17 05:35 07/24/17 06:15 Blood Urea Nitrogen 26 MG/DL 31 MG/DL Creatinine 3.30 MG/DL 4.63 MG/DL Random Glucose 154 MG/DL 113 MG/DL Calcium Level 7.5 MG/DL 6.9 MG/DL Sodium Level 143 MEQ/L 137 MEQ/L Potassium Level 4.5 MEQ/L 6.4 MEQ/L Chloride Level 101 MEQ/L 95 MEQ/L Carbon Dioxide Level 21.7 MEQ/L 9.3 MEQ/L Anion Gap 20 MEQ/L 33 MEQ/L Estimat Glomerular Filtration Rate 18 ML/MIN 12 ML/MIN Lactic Acid Level 12.8 mmol/L Blood Gas Puncture Site ART LINE RT FEMORAL Blood Gas Patient Temperature 98.6 98.6 Blood Gas HCO3 12 mmol/L 8 mmol/L Blood Gas Base Excess -14.2 mmol/L -20.5 mmol/L Blood Gas Oxygen Saturation 97 % 97 % Arterial Blood pH 7.21 7.07 Arterial Blood Partial Pressure CO2 31 mmHg 28 mmHg Arterial Blood Partial Pressure O2 357 mmHg 265 mmHg Arterial Blood Oxygen Content 14.6 Vol % 14.9 Vol % Arterial Blood Carboxyhemoglobin 1.1 % 0.7 % Arterial Blood Methemoglobin 1.1 % 1.1 % Blood Gas Hemoglobin 10.0 G/DL 10.5 G/DL Oxygen Delivery Device VENTILATOR VENTILATOR Blood Gas Ventilator Setting PRVC SEE COMMENT Blood Gas Inspired Oxygen 100 % 100 % White Blood Count 25.2 TH/MM3 Red Blood Count 3.43 MIL/MM3 Hemoglobin 9.9 GM/DL Hematocrit 34.6 % Mean Corpuscular Volume 100.8 FL Mean Corpuscular Hemoglobin 28.9 PG Mean Corpuscular Hemoglobin Concent 28.7 % Red Cell Distribution Width 20.2 % Platelet Count 124 TH/MM3 Mean Platelet Volume 8.4 FL CBC Comment AUTO DIFF Total Protein 5.6 GM/DL Albumin 2.1 GM/DL Phosphorus Level 11.2 MG/DL Magnesium Level 2.5 MG/DL Alkaline Phosphatase 294 U/L Total Bilirubin 3.6 MG/DL Protein Corrected Calcium 7.7 MG/DL Random Vancomycin Level 17.9 COMMENT Test 07/24/17 07:25 Blood Gas Puncture Site ART LINE Blood Gas Patient Temperature 98.6 Blood Gas HCO3 10 mmol/L Blood Gas Base Excess -17.0 mmol/L Blood Gas Oxygen Saturation 97 % Arterial Blood pH 7.16 Arterial Blood Partial Pressure CO2 29 mmHg Arterial Blood Partial Pressure O2 242 mmHg Arterial Blood Oxygen Content 13.5 Vol % Arterial Blood Carboxyhemoglobin 0.8 % Arterial Blood Methemoglobin 1.1 % Blood Gas Hemoglobin 9.5 G/DL Oxygen Delivery Device VENTILATOR Blood Gas Ventilator Setting PRVC/AC Blood Gas Inspired Oxygen 100 % Imaging Last 24 hours Impressions Chest X-Ray 07/24/17 0600 Signed Impressions: Service Date/Time: Monday, July 24, 2017 04:24 - CONCLUSION: 1. Left lower lobe atelectasis versus pneumonia. There has been no significant change when compared to the prior exam. Rj Miles MD Assessment and Plan Problem List: (1) Elevated troponin ICD Codes: R79.89 - Other specified abnormal findings of blood chemistry Status: Acute (2) Severe sepsis ICD Codes: A41.9 - Sepsis, unspecified organism; R65.20 - Severe sepsis without septic shock Status: Acute (3) Chronic kidney disease, stage IV (severe) ICD Codes: N18.4 - Chronic kidney disease, stage 4 (severe) Status: Acute Assessment and Plan This is an 87 yo M with history of bladder cancer, ESRD, HTN, diabetes, HLD and recent pacemaker implantation who presented with respiratory distress on 07/22/16 while receiving dialysis. EMS apparently found him to be hypoxic and hypoglycemic, awake and alert; but upon arrival to ED he was found to be in acutely septic. 07/23/09 during nephrostomy tube insertion for hydronephrosis he went into cardiac arrest requiring intubation. NSTEMI- currently sedated and intubated. consider ischemic workup once stabilized review of telemetry does not demonstrate any concerning arrhythmias remains on supportive care. palliative care consulted Juliette Tubbs Jul 24, 2017 07:42
[2017-07-24] MEDS: INSULIN ASPART SUPPLEMENTAL SCALE SQ SCH ×6 (08:00→22:15)
[2017-07-24] MEDS: SODIUM CHLORIDE 0.9% FLUSH 10 ML FLUSH IV FLUSH SCH ×2 (08:03→20:09)
[2017-07-24 08:21] LABS: BANDS 20 % (0-6); CORRECTED NUCLEATED RBC 3 /100 WBC (0-0); LYMPHOCYTES 7 % (9-44); METAMYELOCYTES 1 % (0-1); MONOCYTES 4 % (0-8); MYELOCYTES 3 % (0-0); NEUTROPHIL # MANUAL DIFF 22.4 TH/MM3 (1.8-7.7); NUCLEATED RED BLOOD CELL 3 (0-0); POLYS (SEG NEUTROPHILS) 65 % (16-70)
[2017-07-24 08:22] LABS: DOHLE BODIES PRESENT (NONE SEEN); TOXIC VACUOLATION PRESENT (NONE SEEN)
[2017-07-24 08:24] LABS: OVALOCYTES 1+ (NORMAL); TOXIC GRANULATION 1+ (NORMAL)
[2017-07-24] MEDS: FAMOTIDINE 20 MG/2 ML VIAL IV PUSH SCH ×2 (08:26→20:07)
[2017-07-24] MEDS: ASPIRIN 81 MG CHEW TAB PO SCH (08:26)
[2017-07-24] MEDS: CALCITRIOL 0.25 MCG CAP PO SCH (08:26)
[2017-07-24] MEDS: DOCUSATE SODIUM 50 MG/SENNA 8.6 MG TAB PO SCH ×2 (08:27→20:08)
[2017-07-24] MEDS: MUPIROCIN 2% OINT 1 APPLIC/GM SYR NASAL SCH ×2 (08:27→20:07)
[2017-07-24] MEDS: BUMETANIDE 1 MG TAB PO SCH ×2 (08:27→20:09)
[2017-07-24] MEDS: MULTIVITAMIN TAB PO SCH (08:27)
[2017-07-24] MEDS: ASCORBIC ACID 500 MG TAB PO SCH (08:27)
[2017-07-24] MEDS: VASOPRESSIN 40 U/D5W 100 ML Titrate, Post Cardiac Surgery IV PRN ×2 (09:47)
--- NOTE | 2017-07-24 11:21 | HHI.CCPN ---
Subjective Remarks/Hospital Course 07/24: 87-year-old very pleasant gentleman presents for respiratory distress. Patient was getting his dialysis done at [facility] when he started developing shortness of breath. When EMS arrived his oxygen saturation was in the mid 80s. They also checked his blood sugar was in the 60s. They started giving him D10. Put him on a nonrebreather and brought him to the emergency room. Upon arrival patient appeared to be lethargic but was answering questions to some extent appropriately. Bedside blood sugar after arrival was 65. Oxygen saturation was 88% on room air. His mental status somewhat improved after IV glucose insertion, however he remains tachypneic. The CT angiogram of the chest ruled out acute pulmonary embolism, and other acute respiratory disorder. The CT of the abdomen shows severe hydronephrosis with a mass at the urethral vesicular junction and hydroureter. Patient is on Coumadin at home however neither him nor his son are aware why. He also had a permanent pacemaker placed 6 months ago. 07/23: Underwent percutaneous nephrostomy by IR last night. Had brief episode of cardiac arrest during intervention for which she required CPR. Has required high doses of Levophed and remains sedated, orally intubated on mechanical ventilation. Was dialyzed earlier today. 07/24: Remains sedated, orally intubated on mechanical ventilation. On Levophed and vasopressin for pressor support. Remains very acidotic. Dialyzed this morning. Evaluated by palliative care. Family wishes to continue full CODE STATUS. Objective Vital Signs Date Time Temp Pulse Resp B/P (MAP) Pulse Ox O2 Delivery O2 Flow Rate FiO2 07/24/17 10:00 76 07/24/17 09:51 108/41 07/24/17 08:00 50 07/24/17 08:00 99.1 29 07/24/17 07:57 100 07/22/17 20:00 Simple Mask 5.00 Intake and Output 07/24/17 07/24/17 07/25/17 08:00 16:00 00:00 Intake Total 4160 ml 350 ml Output Total 20 ml 1000 ml Balance 4140 ml -650 ml Result Diagram: 07/24/17 0615 07/24/17 0615 Other Results Laboratory Tests Test 07/23/17 14:10 07/23/17 23:15 07/24/17 05:35 1/10/18 06:15 Blood Urea Nitrogen 26 MG/DL 31 MG/DL Creatinine 3.30 MG/DL 4.63 MG/DL Random Glucose 154 MG/DL 113 MG/DL Calcium Level 7.5 MG/DL 6.9 MG/DL Sodium Level 143 MEQ/L 137 MEQ/L Potassium Level 4.5 MEQ/L 6.4 MEQ/L Chloride Level 101 MEQ/L 95 MEQ/L Carbon Dioxide Level 21.7 MEQ/L 9.3 MEQ/L Anion Gap 20 MEQ/L 33 MEQ/L Estimat Glomerular Filtration Rate 18 ML/MIN 12 ML/MIN Lactic Acid Level 12.8 mmol/L Blood Gas Puncture Site ART LINE RT FEMORAL Blood Gas Patient Temperature 98.6 98.6 Blood Gas HCO3 12 mmol/L 8 mmol/L Blood Gas Base Excess -14.2 mmol/L -20.5 mmol/L Blood Gas Oxygen Saturation 97 % 97 % Arterial Blood pH 7.21 7.07 Arterial Blood Partial Pressure CO2 31 mmHg 28 mmHg Arterial Blood Partial Pressure O2 357 mmHg 265 mmHg Arterial Blood Oxygen Content 14.6 Vol % 14.9 Vol % Arterial Blood Carboxyhemoglobin 1.1 % 0.7 % Arterial Blood Methemoglobin 1.1 % 1.1 % Blood Gas Hemoglobin 10.0 G/DL 10.5 G/DL Oxygen Delivery Device VENTILATOR VENTILATOR Blood Gas Ventilator Setting PRVC SEE COMMENT Blood Gas Inspired Oxygen 100 % 100 % White Blood Count 25.2 TH/MM3 Red Blood Count 3.43 MIL/MM3 Hemoglobin 9.9 GM/DL Hematocrit 34.6 % Mean Corpuscular Volume 100.8 FL Mean Corpuscular Hemoglobin 28.9 PG Mean Corpuscular Hemoglobin Concent 28.7 % Red Cell Distribution Width 20.2 % Platelet Count 124 TH/MM3 Mean Platelet Volume 8.4 FL CBC Comment AUTO DIFF Differential Total Cells Counted 100 Neutrophils % (Manual) 65 % Band Neutrophils % 20 % Lymphocytes % 7 % Monocytes % 4 % Neutrophils # (Manual) 22.4 TH/MM3 Metamyelocytes 1 % Myelocytes 3 % Nucleated Red Blood Cells 3 /100 WBC Differential Comment FINAL DIFF MANUAL Toxic Granulation 1+ Toxic Vacuolation PRESENT Dohle Bodies PRESENT Platelet Estimate LOW Platelet Morphology Comment NORMAL Ovalocytes 1+ Total Protein 5.6 GM/DL Albumin 2.1 GM/DL Phosphorus Level 11.2 MG/DL Magnesium Level 2.5 MG/DL Alkaline Phosphatase 294 U/L Aspartate Amino Transf (AST/SGOT) 02011 U/L Alanine Aminotransferase (ALT/SGPT) 6724 U/L Total Bilirubin 3.6 MG/DL Protein Corrected Calcium 7.7 MG/DL Random Vancomycin Level 17.9 COMMENT Test 07/24/17 07:25 Blood Gas Puncture Site ART LINE Blood Gas Patient Temperature 98.6 Blood Gas HCO3 10 mmol/L Blood Gas Base Excess -17.0 mmol/L Blood Gas Oxygen Saturation 97 % Arterial Blood pH 7.16 Arterial Blood Partial Pressure CO2 29 mmHg Arterial Blood Partial Pressure O2 242 mmHg Arterial Blood Oxygen Content 13.5 Vol % Arterial Blood Carboxyhemoglobin 0.8 % Arterial Blood Methemoglobin 1.1 % Blood Gas Hemoglobin 9.5 G/DL Oxygen Delivery Device VENTILATOR Blood Gas Ventilator Setting PRVC/AC Blood Gas Inspired Oxygen 100 % Imaging Last 24 hours Impressions Chest X-Ray 07/22/17 1812 Signed Impressions: Service Date/Time: Saturday, July 22, 2017 18:31 - CONCLUSION: Left subclavian bipolar pacer. The heart is enlarged. Lungs are clear. Cole Leach MD Objective Remarks HEENT/ Neuro: Sedated, orally intubated, Pallor present, no icterus, tongue/ mucosa moist Neck: No JVD Chest/Pulm: on mech vent, good air entry bilaterally, no wheezing or crackles CVS: S1-S2 regular, no murmur GI/abdomen: soft, nontender, bowel sounds sluggish. Percutaneous nephrostomy in place Extremities: warm bilaterally, bilateral edema A/P Assessment and Plan Septic shock - Ureteral obstruction at ureterovesical junction - Broad-spectrum antibiotics - Blood cultures, urine cultures - Aggressive IV fluids resuscitation. On Levophed 25 mics per minute and vasopressin 0.04 units per minute. hydrocortisone 50 mg IV every 6 hourly. - Central line placement - Levophed to keep MAP above 65 - Infectious disease consultation. Discussed with Dr. 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 D/W Dr. Bojorquez End-stage renal disease - Hemodialysis per nephrology NSTEMI based on elevated troponin - No EKG changes suggestive acute coronary syndrome - Monitor trend - 2-D echo - Cardiology consultation Acute Respiratory failure requiring mechanical ventilation - Continue mechanical ventilation, vent bundle, bronchodilators - Not ready for weaning trials due to severe metabolic acidosis and hemodynamic instability. Diabetes mellitus - Hold by mouth meds due to lactic acidosis - Insulin sliding scale Hypoglycemia - Due to sepsis - D50 IV when necessary DVT GI prophylaxis - Teds SCDs - Subcutaneous heparin - Pepcid Consulted palliative care to assist with deciding goals of therapy. Patient remains critically ill with multiorgan failure. Extremely poor prognosis. Remains full CODE STATUS per discussion with family Critical Care: The total critical care time was 35 minutes. Time to perform other separately billable procedures was not included in the critical care time. Nathan Mcfadden MD Jul 24, 2017 11:21
[2017-07-24] MEDS ORDERED: NOREPINEPHRINE 16 MG/D5W 250 ML IV PRN ×2 (13:00)
--- NOTE | 2017-07-24 14:47 | HHI.NPPN ---
Subjective History of Present Illness 87-year-old with ESRD, sepsis Objective Data Data 07/24/17 07/25/17 19:00 07:00 Intake Total 5270 ml Output Total 1020 ml Balance 4250 ml Intake IV Total 5270 ml Output Urine Total 10 ml Drainage Total 10 ml Hemodialysis 1000 ml Vital Signs Date Time Temp Pulse Resp B/P (MAP) Pulse Ox O2 Delivery O2 Flow Rate FiO2 07/24/17 12:46 59 133/44 07/24/17 12:45 77 135/43 07/24/17 12:08 94 50 07/24/17 12:00 50 07/24/17 12:00 99.2 59 28 135/45 (75) 07/24/17 12:00 59 07/24/17 10:00 76 07/24/17 09:51 77 108/41 07/24/17 09:47 75 120/49 07/24/17 08:00 65 07/24/17 08:00 50 07/24/17 08:00 65 137/43 07/24/17 08:00 99.1 65 29 137/43 (74) Automatic Cuff 07/24/17 07:57 100 50 07/24/17 06:00 68 07/24/17 04:46 67 137/43 07/24/17 04:00 68 07/24/17 04:00 99.0 68 18 125/48 (73) 07/24/17 04:00 100 07/24/17 03:25 90 100 07/24/17 02:00 89 07/24/17 01:12 87 138/44 07/24/17 01:10 79 129/38 07/24/17 01:06 90 100 07/24/17 00:15 68 126/44 07/24/17 00:00 88 07/24/17 00:00 60 07/24/17 00:00 99.9 82 21 126/46 (72) 07/23/17 22:53 69 125/47 07/23/17 22:00 77 07/23/17 20:12 78 117/51 07/23/17 20:00 60 07/23/17 20:00 98.7 85 20 112/50 (70) 97 07/23/17 20:00 87 07/23/17 19:55 92 60 07/23/17 18:00 95 07/23/17 16:00 60 07/23/17 16:00 98.1 60 14 99/52 (68) 100 07/23/17 16:00 88 07/23/17 14:49 95 60 -: 07/24/17 0615 07/24/1715 Physical Exam General Appearance: Well Developed Neck Neck Exam: Neck Supple Pulmonary Resp Exam: Clear Bilaterally Cardiology CV Exam: Regular, Normal Sinus Rhythm Gastrointestinal/Abdomen GI Exam: Soft, Non-Tender Extremeties Extremities Exam: No Edema Assessment/Plan Problem List: (1) ESRD (end stage renal disease) ICD Codes: N18.6 - End stage renal disease Plan: Patient has dialysis Next dialysis earlier 1 L was removed And follow progress (2) Severe sepsis ICD Codes: A41.9 - Sepsis, unspecified organism; R65.20 - Severe sepsis without septic shock Status: Acute Plan: Patient has urinary tract infection Pseudomonas sepsis (3) Lactic acidosis ICD Codes: E87.2 - Acidosis Status: Acute Plan: Due to sepsis growing Pseudomonas (4) Bladder cancer ICD Codes: C67.9 - Malignant neoplasm of bladder, unspecified Status: Acute Plan: Left hydronephrosis and nephrostomy placed (5) Acute on chronic systolic congestive heart failure ICD Codes: I50.23 - Acute on chronic systolic (congestive) heart failure Status: Acute (6) Acute respiratory failure with hypoxia ICD Codes: J96.01 - Acute respiratory failure with hypoxia Status: Acute Plan: On ventilator Sly Castelan MD Jul 24, 2017 14:47
--- NOTE | 2017-07-24 17:45 | HHI.HCPN ---
Reason for visit a. To assist with evaluation and management of symptoms including: Pain, dyspnea, encephalopathy b. To assist medical decision maker(s) with: better understanding of current medical conditions; weighing benefits/burdens of medical treatment options; making medical treatment decisions. . Subjective/Interval History Mr. Champion is an 87-year-old with ESRD on HD admitted with septic shock, and STEMI based on elevated troponins, hydronephrosis with obstructing mass status post PEA arrest. Follow-up visit for symptom management and clarification of medical treatment goals. Patient remains intubated on mechanical ventilation, sedated with Fentanyl and Versed. On Levophed, vasopressin and dopamine for pressor support. Not ready for weaning trials due to severe metabolic acidosis and hemodynamic instability. Nailbeds and lips are dusky. Having low-grade fevers. Blood and urine cultures from 07/22/2017-both growing Pseudomonas. Follow-up chest x-ray this morning shows left lower lobe atelectasis versus pneumonia, no significant change in comparison to prior exam. On broad-spectrum antibiotics, infectious disease following. =WBC: 25.2, hemoglobin 9.9, hematocrit 34.6, platelets 124 = Sodium: 137, potassium 6.4, chloride 95, monoxide 9.3, glucose 113, calcium 6.9, phosphorus 11.2, magnesium 2.5 BUN/creatinine 31, creatinine 4.63, GFR 12 Total bilirubin: 3.6 AST: 43455, ALT: 6724 Total protein: 5.6, albumin 2.1 Having low-grade fevers. Blood and urine cultures from 07/22/2017-both growing Pseudomonas. Follow-up chest x-ray this morning shows left lower lobe atelectasis versus pneumonia, no significant change in comparison to prior exam. On broad-spectrum antibiotics, infectious disease following. Patient remains critically ill with multiorgan failure, prognosis is extremely poor. Remains full CODE STATUS per discussion with family. . Family/friend interactions Spoke with patient's daughter, Vidhi. Provide an update on patient's clinical condition, multisystem organ dysfunction acquiring increasing support. Vidhi states her brother has located the healthcare surrogate form but for some reason it was not signed. She will ask her brother to bring in the document to be reviewed. She understands that in the event that the healthcare surrogate form is an complete, healthcare decision making would fall to the majority of the 4 adult children. I explained that each child may opt out of healthcare proxy role if they do not want to participate in medical decision making. Messages were left for children, Thomas and Ton, with palliative care contact information. Awaiting contact information for Ronaldo. . Advance Directives Advance Directive Specifics Documented care wishes: Patient's daughter, Vidhi, states the patient has completed some written advanced directives. She is attempting to locate the documents and will fax them to palliative care. . Objective Vital Signs Date Time Temp Pulse Resp B/P (MAP) Pulse Ox O2 Delivery O2 Flow Rate FiO2 07/24/17 16:00 50 07/24/17 16:00 63 07/24/17 16:00 99.0 63 28 146/46 (79) 07/24/17 15:40 95 50 07/24/17 14:00 64 07/24/17 12:46 59 133/44 07/24/17 12:45 77 135/43 07/24/17 12:08 94 50 07/24/17 12:00 50 07/24/17 12:00 99.2 59 28 135/45 (75) 07/24/17 12:00 59 07/24/17 10:00 76 07/24/17 09:51 77 108/41 07/24/17 09:47 75 120/49 07/24/17 08:00 65 07/24/17 08:00 50 07/24/17 08:00 65 137/43 07/24/17 08:00 99.1 65 29 137/43 (74) Automatic Cuff 07/24/17 07:57 100 50 07/24/17 06:00 68 07/24/17 04:46 67 137/43 07/24/17 04:00 68 07/24/17 04:00 99.0 68 18 125/48 (73) 07/24/17 04:00 100 07/24/17 03:25 90 100 07/24/17 02:00 89 07/24/17 01:12 87 138/44 07/24/17 01:10 79 129/38 07/24/17 01:06 90 100 07/24/17 00:15 68 126/44 07/24/17 00:00 88 07/24/17 00:00 60 07/24/17 00:00 99.9 82 21 126/46 (72) 07/23/17 22:53 69 125/47 07/23/17 22:00 77 07/23/17 20:12 78 117/51 07/23/17 20:00 60 07/23/17 20:00 98.7 85 20 112/50 (70) 97 07/23/17 20:00 87 07/23/17 19:55 92 60 07/23/17 18:00 95 Intake & Output 07/24/17 07/24/17 07:00 19:00 Intake Total 5270 ml Output Total 1020 ml Balance 4250 ml Intake IV Total 5270 ml Output Urine Total 10 ml Drainage Total 10 ml Hemodialysis 1000 ml . Physical Exam CONSTITUTIONAL/GENERAL: This is a critically ill, elderly male patient currently sedated and intubated on mechanical ventilation, requiring pressor support TUBES/LINES/DRAINS: ETT, OGT, CVL, Art line, PIV x 1, Left nephrostomy tube, Fragoso catheter, SCDs, soft restraints SKIN: Nailbeds and lips are dusky. No wounds seen anteriorly. Skin temperature appropriate. Not diaphoretic. HEAD: Atraumatic. Normocephalic. EYES: Pupils are round and equal, sluggish. No scleral icterus. No injection or drainage. ENT: Unable to assess hearing . Nose without bleeding or purulent drainage. Mucous membranes dry NECK: Trachea midline. CARDIOVASCULAR: Atrial fibrillation No JVD. RESPIRATORY/CHEST: Intubated on mechanical ventilation. Breath sounds diminished throughout. No wheezes, rales, or rhonchi. GASTROINTESTINAL: Abdomen soft, non-tender, nondistended. GENITOURINARY: Without palpable bladder distension. Fragoso catheter draining tea- colored urine with sediment. Left nephrostomy tube with scant, pinkish MUSCULOSKELETAL: Extremities without clubbing or edema. No obvious deformities. Nailbeds and toes are dusky. Feet are cool to touch bilaterally LYMPHATICS: No palpable cervical or supraclavicular adenopathy. NEUROLOGICAL: Patient sedated on Fentanyl and Versed. Does not arouse to verbal stimuli, does not withdraw to deep tactile stimuli. PSYCHIATRIC: Unable to assess given patient's clinical condition . Diagnostic Tests Laboratory Laboratory Tests Test 07/22/17 18:25 07/22/17 19:08 07/22/17 19:20 07/22/17 21:04 White Blood Count 21.0 TH/MM3 (4.0-11.0) Red Blood Count 2.99 MIL/MM3 (4.50-5.90) Hemoglobin 8.9 GM/DL (13.0-17.0) Hematocrit 27.8 % (39.0-51.0) Mean Corpuscular Volume 92.8 FL (80.0-100.0) Mean Corpuscular Hemoglobin 29.6 PG (27.0-34.0) Mean Corpuscular Hemoglobin Concent 31.9 % (32.0-36.0) Red Cell Distribution Width 18.8 % (11.6-17.2) Platelet Count 165 TH/MM3 (150-450) Mean Platelet Volume 7.5 FL (7.0-11.0) Neutrophils (%) (Auto) 92.3 % (16.0-70.0) Lymphocytes (%) (Auto) 1.4 % (9.0-44.0) Monocytes (%) (Auto) 6.2 % (0.0-8.0) Eosinophils (%) (Auto) 0.0 % (0.0-4.0) Basophils (%) (Auto) 0.1 % (0.0-2.0) Neutrophils # (Auto) 19.4 TH/MM3 (1.8-7.7) Lymphocytes # (Auto) 0.3 TH/MM3 (1.0-4.8) Monocytes # (Auto) 1.3 TH/MM3 (0-0.9) Eosinophils # (Auto) 0.0 TH/MM3 (0-0.4) Basophils # (Auto) 0.0 TH/MM3 (0-0.2) CBC Comment DIFF FINAL Differential Comment Prothrombin Time 15.4 SEC (9.8-11.6) Prothromb Time International Ratio 1.5 RATIO Blood Urea Nitrogen 28 MG/DL (7-18) Creatinine 4.23 MG/DL (0.60-1.30) Random Glucose 128 MG/DL (74-106) Calcium Level 8.2 MG/DL (8.5-10.1) Sodium Level 139 MEQ/L (136-145) Potassium Level 5.2 MEQ/L (3.5-5.1) Chloride Level 107 MEQ/L (98-107) Carbon Dioxide Level 18.6 MEQ/L (21.0-32.0) Anion Gap 13 MEQ/L (5-15) Estimat Glomerular Filtration Rate 13 ML/MIN (>89) Troponin I 1.78 NG/ML (0.02-0.05) Blood Gas Puncture Site RT BRACHIAL Blood Gas Patient Temperature 98.6 Blood Gas HCO3 12 mmol/L (22-26) Blood Gas Base Excess -11.0 mmol/L (-2-2) Blood Gas Oxygen Saturation 92 % (90-100) Arterial Blood pH 7.49 (7.380-7.420) Arterial Blood Partial Pressure CO2 16 mmHg (38-42) Arterial Blood Partial Pressure O2 72 mmHG (61-120) Arterial Blood Oxygen Content 11.4 Vol % (12.0-20.0) Arterial Blood Carboxyhemoglobin 2.2 % (0-4) Arterial Blood Methemoglobin 0.6 % (0-2) Blood Gas Hemoglobin 8.7 G/DL (12.0-16.0) Oxygen Delivery Device NASAL CANNULA Blood Gas Liter Flow 3 L/M Lactic Acid Level 11.7 mmol/L (0.4-2.0) Nasal Screen MRSA (PCR) MRSA DETECTED (NOT DETECT) Test 07/22/17 22:20 07/23/17 00:28 07/23/17 01:54 07/23/17 02:35 Lactic Acid Level 9.3 mmol/L (0.4-2.0) 14.2 mmol/L (0.4-2.0) Troponin I 2.62 NG/ML (0.02-0.05) Urine Color RED (YELLW/STRAW) Urine Turbidity CLOUDY (CLEAR) Urine pH 5.5 (5.0-8.5) Urine Specific [place] 1.018 (1.002-1.035) Urine Protein 100 mg/dL (NEG-TRACE) Urine Glucose (UA) NEG mg/dL (NEG) Urine Ketones TRACE mg/dL (NEG) Urine Occult Blood LARGE (NEG) Urine Nitrite NEG (NEG) Urine Bilirubin NEG (NEG) Urine Urobilinogen LESS THAN 2.0 MG/DL (LESS Urine Leukocyte Esterase LARGE (NEG) Urine RBC /hpf (0-3) Urine WBC /hpf (0-5) Urine WBC Clumps MANY (NONE) Urine Bacteria FEW /hpf (NONE) Urine Mucus FEW /lpf (OCC) Urine Yeast (Budding) FEW (NONE) Microscopic Urinalysis Comment CULTURE INDICATED Blood Gas Puncture Site ART LINE Blood Gas Patient Temperature 98.6 Blood Gas HCO3 9 mmol/L (22-26) Blood Gas Base Excess -17.3 mmol/L (-2-2) Blood Gas Oxygen Saturation 97 % (90-100) Arterial Blood pH 7.22 (7.380-7.420) Arterial Blood Partial Pressure CO2 23 mmHg (38-42) Arterial Blood Partial Pressure O2 491 mmHg (61-120) Arterial Blood Oxygen Content 11.6 Vol % (12.0-20.0) Arterial Blood Carboxyhemoglobin 1.3 % (0-4) Arterial Blood Methemoglobin 1.5 % (0-2) Blood Gas Hemoglobin 7.5 G/DL (12.0-16.0) Oxygen Delivery Device VENTILATOR Blood Gas Ventilator Setting [facility]/AC Blood Gas Inspired Oxygen 100 % Test 07/23/17 04:44 07/23/17 04:45 07/23/17 14:10 07/23/17 23:15 Lactic Acid Level 14.3 mmol/L (0.4-2.0) 12.8 mmol/L (0.4-2.0) White Blood Count 19.1 TH/MM3 (4.0-11.0) Red Blood Count 3.18 MIL/MM3 (4.50-5.90) Hemoglobin 9.5 GM/DL (13.0-17.0) Hematocrit 30.0 % (39.0-51.0) Mean Corpuscular Volume 94.6 FL (80.0-100.0) Mean Corpuscular Hemoglobin 29.9 PG (27.0-34.0) Mean Corpuscular Hemoglobin Concent 31.6 % (32.0-36.0) Red Cell Distribution Width 18.4 % (11.6-17.2) Platelet Count 117 TH/MM3 (150-450) Mean Platelet Volume 8.1 FL (7.0-11.0) Neutrophils (%) (Auto) 89.8 % (16.0-70.0) Lymphocytes (%) (Auto) 2.4 % (9.0-44.0) Monocytes (%) (Auto) 7.2 % (0.0-8.0) Eosinophils (%) (Auto) 0.1 % (0.0-4.0) Basophils (%) (Auto) 0.5 % (0.0-2.0) Neutrophils # (Auto) 17.2 TH/MM3 (1.8-7.7) Lymphocytes # (Auto) 0.5 TH/MM3 (1.0-4.8) Monocytes # (Auto) 1.4 TH/MM3 (0-0.9) Eosinophils # (Auto) 0.0 TH/MM3 (0-0.4) Basophils # (Auto) 0.1 TH/MM3 (0-0.2) CBC Comment AUTO DIFF Differential Total Cells Counted 100 Neutrophils % (Manual) 74 % (16-70) Band Neutrophils % 16 % (0-6) Lymphocytes % 2 % (9-44) Monocytes % 7 % (0-8) Neutrophils # (Manual) 17.4 TH/MM3 (1.8-7.7) Myelocytes 1 % (0-0) Differential Comment FINAL DIFF MANUAL Dohle Bodies PRESENT (NONE SEEN) Platelet Estimate LOW (NORMAL) Platelet Morphology Comment NORMAL (NORMAL) Ovalocytes 1+ (NORMAL) Kary Cells 1+ (NORMAL) Acanthocytes OCC (NORMAL) Prothrombin Time 23.4 SEC (9.8-11.6) Prothromb Time International Ratio 2.3 RATIO Blood Urea Nitrogen 35 MG/DL (7-18) 26 MG/DL (7-18) Creatinine 4.76 MG/DL (0.60-1.30) 3.30 MG/DL (0.60-1.30) Random Glucose 100 MG/DL (74-106) 154 MG/DL (74-106) Total Protein 5.6 GM/DL (6.4-8.2) Albumin 2.1 GM/DL (3.4-5.0) Calcium Level 7.6 MG/DL (8.5-10.1) 7.5 MG/DL (8.5-10.1) Phosphorus Level 8.1 MG/DL (2.5-4.9) Magnesium Level 2.1 MG/DL (1.5-2.5) Alkaline Phosphatase 132 U/L (45-117) Aspartate Amino Transf (AST/SGOT) 21016 U/L (15-37) Alanine Aminotransferase (ALT/SGPT) 4501 U/L (12-78) Total Bilirubin 1.8 MG/DL (0.2-1.0) Sodium Level 143 MEQ/L (136-145) 143 MEQ/L (136-145) Potassium Level 6.4 MEQ/L (3.5-5.1) 4.5 MEQ/L (3.5-5.1) Chloride Level 108 MEQ/L (98-107) 101 MEQ/L (98-107) Carbon Dioxide Level 12.5 MEQ/L (21.0-32.0) 21.7 MEQ/L (21.0-32.0) Anion Gap 23 MEQ/L (5-15) 20 MEQ/L (5-15) Estimat Glomerular Filtration Rate 12 ML/MIN (>89) 18 ML/MIN (>89) Troponin I 5.61 NG/ML (0.02-0.05) Blood Gas Puncture Site ART LINE Blood Gas Patient Temperature 98.6 Blood Gas HCO3 12 mmol/L (22-26) Blood Gas Base Excess -14.2 mmol/L (-2-2) Blood Gas Oxygen Saturation 97 % (90-100) Arterial Blood pH 7.21 (7.380-7.420) Arterial Blood Partial Pressure CO2 31 mmHg (38-42) Arterial Blood Partial Pressure O2 357 mmHg (61-120) Arterial Blood Oxygen Content 14.6 Vol % (12.0-20.0) Arterial Blood Carboxyhemoglobin 1.1 % (0-4) Arterial Blood Methemoglobin 1.1 % (0-2) Blood Gas Hemoglobin 10.0 G/DL (12.0-16.0) Oxygen Delivery Device VENTILATOR Blood Gas Ventilator Setting PR[facility] Blood Gas Inspired Oxygen 100 % Test 07/24/17 05:35 07/24/17 06:15 07/24/17 07:25 Blood Gas Puncture Site RT FEMORAL ART LINE Blood Gas Patient Temperature 98.6 98.6 Blood Gas HCO3 8 mmol/L (22-26) 10 mmol/L (22-26) Blood Gas Base Excess -20.5 mmol/L (-2-2) -17.0 mmol/L (-2-2) Blood Gas Oxygen Saturation 97 % (90-100) 97 % (90-100) Arterial Blood pH 7.07 (7.380-7.420) 7.16 (7.380-7.420) Arterial Blood Partial Pressure CO2 28 mmHg (38-42) 29 mmHg (38-42) Arterial Blood Partial Pressure O2 265 mmHg (61-120) 242 mmHg (61-120) Arterial Blood Oxygen Content 14.9 Vol % (12.0-20.0) 13.5 Vol % (12.0-20.0) Arterial Blood Carboxyhemoglobin 0.7 % (0-4) 0.8 % (0-4) Arterial Blood Methemoglobin 1.1 % (0-2) 1.1 % (0-2) Blood Gas Hemoglobin 10.5 G/DL (12.0-16.0) 9.5 G/DL (12.0-16.0) Oxygen Delivery Device VENTILATOR VENTILATOR Blood Gas Ventilator Setting SEE COMMENT PRVC/AC Blood Gas Inspired Oxygen 100 % 100 % White Blood Count 25.2 TH/MM3 (4.0-11.0) Red Blood Count 3.43 MIL/MM3 (4.50-5.90) Hemoglobin 9.9 GM/DL (13.0-17.0) Hematocrit 34.6 % (39.0-51.0) Mean Corpuscular Volume 100.8 FL (80.0-100.0) Mean Corpuscular Hemoglobin 28.9 PG (27.0-34.0) Mean Corpuscular Hemoglobin Concent 28.7 % (32.0-36.0) Red Cell Distribution Width 20.2 % (11.6-17.2) Platelet Count 124 TH/MM3 (150-450) Mean Platelet Volume 8.4 FL (7.0-11.0) CBC Comment AUTO DIFF Differential Total Cells Counted 100 Neutrophils % (Manual) 65 % (16-70) Band Neutrophils % 20 % (0-6) Lymphocytes % 7 % (9-44) Monocytes % 4 % (0-8) Neutrophils # (Manual) 22.4 TH/MM3 (1.8-7.7) Metamyelocytes 1 % (0-1) Myelocytes 3 % (0-0) Nucleated Red Blood Cells 3 /100 WBC (0-0) Differential Comment FINAL DIFF MANUAL Toxic Granulation 1+ (NORMAL) Toxic Vacuolation PRESENT (NONE SEEN) Dohle Bodies PRESENT (NONE SEEN) Platelet Estimate LOW (NORMAL) Platelet Morphology Comment NORMAL (NORMAL) Ovalocytes 1+ (NORMAL) Blood Urea Nitrogen 31 MG/DL (7-18) Creatinine 4.63 MG/DL (0.60-1.30) Random Glucose 113 MG/DL (74-106) Total Protein 5.6 GM/DL (6.4-8.2) Albumin 2.1 GM/DL (3.4-5.0) Calcium Level 6.9 MG/DL (8.5-10.1) Phosphorus Level 11.2 MG/DL (2.5-4.9) Magnesium Level 2.5 MG/DL (1.5-2.5) Alkaline Phosphatase 294 U/L (45-117) Aspartate Amino Transf (AST/SGOT) 17010 U/L (15-37) Alanine Aminotransferase (ALT/SGPT) 6724 U/L (12-78) Total Bilirubin 3.6 MG/DL (0.2-1.0) Sodium Level 137 MEQ/L (136-145) Potassium Level 6.4 MEQ/L (3.5-5.1) Chloride Level 95 MEQ/L (98-107) Carbon Dioxide Level 9.3 MEQ/L (21.0-32.0) Anion Gap 33 MEQ/L (5-15) Estimat Glomerular Filtration Rate 12 ML/MIN (>89) Protein Corrected Calcium 7.7 MG/DL (8.5-10.1) Random Vancomycin Level 17.9 COMMENT . Result Diagram: 07/24/1715 07/24/1715 Microbiology Microbiology Date/Time Source Procedure Growth Status 07/22/17 19:30 Blood Peripheral Aerobic Blood Culture - Preliminary Pseudomonas Aeruginosa Resulted 07/22/17 19:30 Blood Peripheral Anaerobic Blood Culture - Preliminary NO GROWTH IN 2 DAYS Resulted 07/22/17 19:20 Blood Peripheral Aerobic Blood Culture - Final Pseudomonas Aeruginosa Resulted 07/22/17 19:20 Blood Peripheral Anaerobic Blood Culture - Preliminary NO GROWTH IN 2 DAYS Resulted 07/23/17 01:33 Fluid Other Gram Stain - Final Resulted 07/23/17 01:33 Fluid Other Body Fluid Culture - Preliminary NO GROWTH IN 24 HOURS. Resulted 07/23/17 10:33 Sputum Endotracheal Gram Stain - Final Resulted 07/23/17 10:33 Sputum Endotracheal Sputum Culture - Preliminary LIGHT GROWTH NORMAL RESPIRATORY RE... Resulted 07/23/17 00:28 Urine Clean Catch Urine Culture - Preliminary Pseudomonas Species Resulted Imaging Last 72 hours Impressions Chest X-Ray 07/24/17 0600 Signed Impressions: Service Date/Time: Monday, July 24, 2017 04:24 - CONCLUSION: 1. Left lower lobe atelectasis versus pneumonia. There has been no significant change when compared to the prior exam. Rj Miles MD Chest X-Ray 07/23/17 0000 Signed Impressions: Service Date/Time: Sunday, July 23, 2017 02:37 - CONCLUSION: 1. Satisfactory position of endotracheal tube as above. Rj Miles MD Chest X-Ray 07/23/17 0000 Signed Impressions: Service Date/Time: Sunday, July 23, 2017 00:25 - CONCLUSION: 1. Right subclavian central line in good position without pneumothorax. Miki Rich MD Chest X-Ray 07/22/171811 Signed Impressions: Service Date/Time: Saturday, July 22, 2017 18:31 - CONCLUSION: Left subclavian bipolar pacer. The heart is enlarged. Lungs are clear. Cole Leach MD Nephrostomy 07/22/17 0000 Signed Impressions: Service Date/Time: Sunday, July 23, 2017 01:43 - CONCLUSION: 1. Technically successful fluoroscopic and ultrasound-guided percutaneous left-sided nephrostomy catheter placement, as above. Miki Rich MD CT Angiography 07/22/17 0000 Signed Impressions: Service Date/Time: Saturday, July 22, 2017 20:01 - CONCLUSION: No evidence of pulmonary embolism. Small bilateral pleural effusions. Cole Leach MD Abdomen/Pelvis CT 07/22/17 0000 Signed Impressions: Service Date/Time: Saturday, July 22, 2017 21:30 - CONCLUSION: Severe hydronephrosis of the left kidney with a dilated hydroureter. 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 No evidence of bowel obstruction. Small bilateral pleural effusions. Cole Leach MD . Procedures 07/23/2017: Central line placement 07/23/2017: Endotracheal intubation 07/23/2017: Arterial line placement . Assessment and Plan Disease Oriented Problem List: (1) Diabetes (2) Hypoglycemia (3) Hydronephrosis (4) Septic shock (5) Severe sepsis (6) Elevated troponin (7) Acute respiratory failure with hypoxia (8) ESRD (end stage renal disease) (9) Bladder cancer (10) Pleural effusion (11) Lactic acidosis Symptom Scale: (1) Pain 0-10 Scale: Unable to quantify (2) Dyspnea 0-10 Scale: Unable to quantify (3) Encephalopathy 0-10 Scale: Unable to quantify Pertinent Non-Medical Issues Psychosocial: Patient is originally from [place]; he lived in [place] and then moved to [place], [place] approximately 6 years ago. He is a . He has 4 adult children (Abbie, Thomas, Ton and Ronaldo). 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 Spiritual: [employer] [place] Legal: Patient's daughter, Vidhi, states the patient has completed some written advanced directives. She is attempting to locate the documents and will fax them to palliative care. In the absence of written advanced directives healthcare proxy decision-making falls to the patient's 4 adult children. Ethical issues impacting care: No known ethical issues impacting care at this time. . Important Contacts [place] Champion, son: [phone] Abbie, daughter: [phone] or [phone] (cell) Ton Champion, son: [phone] Ronaldo Champion, son: phone number not known at this time. . Prognosis Patient is an 87-year-old male with a complex medical history who is currently admitted with septic shock, NSTEMI based on elevated troponin, hydronephrosis with obstructing mass and end-stage renal disease status post PEA arrest. Patient remains sedated and intubated on mechanical ventilation requiring pressor support. He is critically ill and may not survive this hospitalization. If he does survive he will be at high risk for further decline with ongoing complications. . Code Status: Full Code Plan * FULL CODE * Decision-making: Patient is currently unresponsive; it is unclear if the patient will regain capacity to participate in medical decision making. Per [place] statutes, in the absence of written advanced directives healthcare proxy decision-making falls to the patient's 4 adult children. * Spoke with patient's daughter, Vidhi. Provide an update on patient's clinical condition, multisystem organ dysfunction acquiring increasing support. Vidhi states her brother has located the healthcare surrogate form but for some reason it was not signed. She will ask her brother to bring in the document to be reviewed. She understands that in the event that the healthcare surrogate form is an complete, healthcare decision making would fall to the majority of the 4 adult children. I explained that each child may opt out of healthcare proxy role if they do not want to participate in medical decision making. Messages were left for children, Thomas and Ton, with palliative care contact information. Awaiting contact information for Ronaldo. * AGGRESSIVE GOALS * Discussed with bedside nurse, Tabatha, and Dr. Mcfadden * Symptom management-encephalopathy: Patient remains sedated on Fentanyl and Versed, not tolerating sedation vacation. Patient does not arouse to verbal stimuli; he does not withdraw to deep tactile stimuli. Will continue to monitor. * Symptom management-pain: Patient shows no signs of nonverbal pain on and off sedation. Factors that could contribute to pain would include recent CPR, intubation, nephrostomy tube placement, invasive lines (arterial line, central line, peripheral IV), Fragoso catheter, impaired circulation, immobility, bedbound status. Fentanyl and Versed can be titrated. PRN acetaminophen and morphine are ordered but have not been required. Palliative care will continue to monitor and make recommendations as indicated. * Palliative care will continue to follow this patient throughout his hospitalization to establish trust, assist with symptom management and clarification of medical treatment goals. . Shira Garcia Jul 24, 2017 17:45
--- NOTE | 2017-07-24 19:45 | ECHRPT ---
Indication: Heart failure, unspecified CONCLUSIONS The left ventricular systolic function is normal with an estimated ejection fraction in the range of 60-65%. Mild concentric left ventricular hypertrophy. Normal left ventricular size. There is mild tricuspid valve regurgitation. The estimated pulmonary arterial pressure is 46 mmHg. BP: 94 / 56 HR: 105 Rhythm: Other MEASUREMENTS (Male / Female) Normal Values Technical Quality:Good 2D ECHO LV Diastolic Diameter PLAX 5.4 cm 4.2 - 5.9 / 3.9 - 5.3 cm LV Systolic Diameter PLAX 4.0 cm IVS Diastolic Thickness 1.5 cm 0.6 - 1.0 / 0.6 - 0.9 cm LVPW Diastolic Thickness 1.5 cm 0.6 - 1.0 / 0.6 - 0.9 cm LV Relative Wall Thickness 0.6 LVOT Diameter 2.2 cm M-MODE Aortic Root Diameter MM 3.3 cm LA Systolic Diameter MM 4.8 cm LA Ao Ratio MM 1.5 AV Cusp Separation MM 2.1 cm DOPPLER AV Peak Velocity 152.0 cm/s AV Peak Gradient 9.2 mmHg LVOT Peak Velocity 87.0 cm/s LVOT Peak Gradient 3.0 mmHg AV Area Cont Eq pk 2.2 cm TR Peak Velocity 299.0 cm/s TR Peak Gradient 35.8 mmHg Right Atrial Pressure 10.0 mmHg Pulmonary Artery Systolic Pressu 45.8 mmHg Right Ventricular Systolic Press 45.8 mmHg PV Peak Velocity 141.0 cm/s PV Peak Gradient 8.0 mmHg FINDINGS LEFT VENTRICLE The left ventricular systolic function is normal with an estimated ejection fraction in the range of 60-65%. Mild concentric left ventricular hypertrophy. Normal left ventricular size. RIGHT VENTRICLE Normal right ventricular size and systolic function. LEFT ATRIUM The left atrial size is normal. RIGHT ATRIUM The right atrial size is normal. ATRIAL SEPTUM Normal atrial septal thickness without atrial level shunting by limited color doppler interrogation. AORTA The aortic root and proximal ascending aorta are normal in size on limited imaging. MITRAL VALVE Structurally normal mitral valve. No mitral valve stenosis or regurgitation. AORTIC VALVE Trileaflet aortic valve. No aortic valve stenosis or regurgitation. TRICUSPID VALVE There is mild tricuspid valve regurgitation. The estimated pulmonary arterial pressure is 45.8 mmHg. PULMONARY VALVE No pulmonary valve regurgitation or stenosis. VESSELS The inferior vena cava is normal in size. PERICARDIUM No pericardial effusion. Preston Kaur MD, FACC (Electronically Signed) Final Date:24 July 2017 19:44
[2017-07-24] MEDS: SODIUM BICARBONATE 8.4% INJ 150 MEQ in DEXTROSE 5% IN WATE 1000ML INJ 1,000 ML IV SCH ×2 (20:13)
[2017-07-24] MEDS: DEXTROSE 50% IN WATER 50 ML VIAL(D50) IV PUSH PRN ×2 (20:55→22:07)
--- NOTE | 2017-07-24 21:37 | EKG ---
Date Performed: 07/23/2017 Time Performed: 22:28:14 PTAGE: 87 years EKG: AV pacing PACs Abnormal ECG PREVIOUS TRACING : 07/23/2017 06.26 Compared to prior tracing no significant change DOCTOR: Preston Kaur Interpretating Date/Time 07/24/2017 21:35:47
--- NOTE | 2017-07-24 23:33 | HHI.IDPN ---
Subjective Subjective Remarks delayed entry pt was seen earlier today around [address] Mcfadden remains on high dose pressors and remains on vent WBC up to 25 K Antibiotics zosyn Allergies: Coded Allergies: No Known Allergies (Unverified , 04/11/16) Objective . Vital Signs Date Time Temp Pulse Resp B/P (MAP) Pulse Ox O2 Delivery O2 Flow Rate FiO2 07/24/17 21:26 61 146/39 07/24/17 19:34 93 50 07/24/17 18:00 59 07/24/17 16:00 50 07/24/17 16:00 63 07/24/17 16:00 99.0 63 28 146/46 (79) 07/24/17 15:40 95 50 07/24/17 14:00 64 07/24/17 13:15 66 136/44 07/24/17 13:15 66 136/44 07/24/17 13:00 66 136/44 07/24/17 12:46 59 133/44 07/24/17 12:45 77 135/43 07/24/17 12:08 94 50 07/24/17 12:00 50 07/24/17 12:00 99.2 59 28 135/45 (75) 07/24/17 12:00 59 07/24/17 10:00 76 07/24/17 09:51 77 108/41 07/24/17 09:47 75 120/49 07/24/17 08:00 65 07/24/17 08:00 50 07/24/17 08:00 65 137/43 07/24/17 08:00 99.1 65 29 137/43 (74) Automatic Cuff 07/24/17 07:57 100 50 07/24/17 06:00 68 07/24/17 04:46 67 137/43 07/24/17 04:00 68 07/24/17 04:00 99.0 68 18 125/48 (73) 07/24/17 04:00 100 07/24/17 03:25 90 100 07/24/17 02:00 89 07/24/17 01:12 87 138/44 07/24/17 01:10 79 129/38 07/24/17 01:06 90 100 07/24/17 00:15 68 126/44 07/24/17 00:00 88 07/24/17 00:00 60 07/24/17 00:00 99.9 82 21 126/46 (72) 07/24/17 07/24/17 07/25/17 15:00 23:00 07:00 Intake Total 5270 ml 1550 ml Output Total 1020 ml 10 ml Balance 4250 ml 1540 ml Intake IV Total 5270 ml 1550 ml Output Urine Total 10 ml 10 ml Drainage Total 10 ml 0 ml Hemodialysis 1000 ml . Laboratory Tests Test 07/23/17 04:45 07/24/17 06:15 White Blood Count 19.1 TH/MM3 25.2 TH/MM3 Red Blood Count 3.18 MIL/MM3 3.43 MIL/MM3 Hemoglobin 9.5 GM/DL 9.9 GM/DL Hematocrit 30.0 % 34.6 % Mean Corpuscular Volume 94.6 FL 100.8 FL Mean Corpuscular Hemoglobin 29.9 PG 28.9 PG Mean Corpuscular Hemoglobin Concent 31.6 % 28.7 % Red Cell Distribution Width 18.4 % 20.2 % Platelet Count 117 TH/MM3 124 TH/MM3 Mean Platelet Volume 8.1 FL 8.4 FL Neutrophils (%) (Auto) 89.8 % Lymphocytes (%) (Auto) 2.4 % Monocytes (%) (Auto) 7.2 % Eosinophils (%) (Auto) 0.1 % Basophils (%) (Auto) 0.5 % Neutrophils # (Auto) 17.2 TH/MM3 Lymphocytes # (Auto) 0.5 TH/MM3 Monocytes # (Auto) 1.4 TH/MM3 Eosinophils # (Auto) 0.0 TH/MM3 Basophils # (Auto) 0.1 TH/MM3 CBC Comment AUTO DIFF AUTO DIFF Differential Total Cells Counted 100 100 Neutrophils % (Manual) 74 % 65 % Band Neutrophils % 16 % 20 % Lymphocytes % 2 % 7 % Monocytes % 7 % 4 % Neutrophils # (Manual) 17.4 TH/MM3 22.4 TH/MM3 Myelocytes 1 % 3 % Differential Comment FINAL DIFF MANUAL FINAL DIFF MANUAL Dohle Bodies PRESENT PRESENT Platelet Estimate LOW LOW Platelet Morphology Comment NORMAL NORMAL Ovalocytes 1+ 1+ Kary Cells 1+ Acanthocytes OCC Metamyelocytes 1 % Nucleated Red Blood Cells 3 /100 WBC Toxic Granulation 1+ Toxic Vacuolation PRESENT Laboratory Tests Test 07/23/17 02:35 07/23/17 04:44 07/23/17 04:45 07/23/17 14:10 Lactic Acid Level 14.2 mmol/L 14.3 mmol/L 12.8 mmol/L Blood Urea Nitrogen 35 MG/DL 26 MG/DL Creatinine 4.76 MG/DL 3.30 MG/DL Random Glucose 100 MG/DL 154 MG/DL Total Protein 5.6 GM/DL Albumin 2.1 GM/DL Calcium Level 7.6 MG/DL 7.5 MG/DL Phosphorus Level 8.1 MG/DL Magnesium Level 2.1 MG/DL Alkaline Phosphatase 132 U/L Aspartate Amino Transf (AST/SGOT) 81723 U/L Alanine Aminotransferase (ALT/SGPT) 4501 U/L Total Bilirubin 1.8 MG/DL Sodium Level 143 MEQ/L 143 MEQ/L Potassium Level 6.4 MEQ/L 4.5 MEQ/L Chloride Level 108 MEQ/L 101 MEQ/L Carbon Dioxide Level 12.5 MEQ/L 21.7 MEQ/L Anion Gap 23 MEQ/L 20 MEQ/L Estimat Glomerular Filtration Rate 12 ML/MIN 18 ML/MIN Troponin I 5.61 NG/ML Test 07/24/17 06:15 Blood Urea Nitrogen 31 MG/DL Creatinine 4.63 MG/DL Random Glucose 113 MG/DL Total Protein 5.6 GM/DL Albumin 2.1 GM/DL Calcium Level 6.9 MG/DL Phosphorus Level 11.2 MG/DL Magnesium Level 2.5 MG/DL Alkaline Phosphatase 294 U/L Aspartate Amino Transf (AST/SGOT) 03422 U/L Alanine Aminotransferase (ALT/SGPT) 6724 U/L Total Bilirubin 3.6 MG/DL Sodium Level 137 MEQ/L Potassium Level 6.4 MEQ/L Chloride Level 95 MEQ/L Carbon Dioxide Level 9.3 MEQ/L Anion Gap 33 MEQ/L Estimat Glomerular Filtration Rate 12 ML/MIN Protein Corrected Calcium 7.7 MG/DL Microbiology Date/Time Source Procedure Growth Status 07/22/17 19:30 Blood Peripheral Aerobic Blood Culture - Preliminary Pseudomonas Aeruginosa Resulted 07/22/17 19:30 Blood Peripheral Anaerobic Blood Culture - Preliminary NO GROWTH IN 2 DAYS Resulted 07/22/17 19:20 Blood Peripheral Aerobic Blood Culture - Final Pseudomonas Aeruginosa Resulted 07/22/17 19:20 Blood Peripheral Anaerobic Blood Culture - Preliminary NO GROWTH IN 2 DAYS Resulted 07/23/17 01:33 Fluid Other Gram Stain - Final Resulted 07/23/17 01:33 Fluid Other Body Fluid Culture - Preliminary NO GROWTH IN 24 HOURS. Resulted 07/23/17 10:33 Sputum Endotracheal Gram Stain - Final Resulted 07/23/17 10:33 Sputum Endotracheal Sputum Culture - Preliminary LIGHT GROWTH NORMAL RESPIRATORY RE... Resulted 07/23/17 00:28 Urine Clean Catch Urine Culture - Preliminary Pseudomonas Species Resulted Imaging Last Impressions Chest X-Ray 07/24/17 0600 Signed Impressions: Service Date/Time: Monday, July 24, 2017 04:24 - CONCLUSION: 1. Left lower lobe atelectasis versus pneumonia. There has been no significant change when compared to the prior exam. Rj Miles MD Nephrostomy 07/22/17 0000 Signed Impressions: Service Date/Time: Sunday, July 23, 2017 01:43 - CONCLUSION: 1. Technically successful fluoroscopic and ultrasound-guided percutaneous left-sided nephrostomy catheter placement, as above. Miki Rich MD CT Angiography 07/22/17 0000 Signed Impressions: Service Date/Time: Saturday, July 22, 2017 20:01 - CONCLUSION: No evidence of pulmonary embolism. Small bilateral pleural effusions. Cole Leach MD Abdomen/Pelvis CT 07/22/17 0000 Signed Impressions: Service Date/Time: Saturday, July 22, 2017 21:30 - CONCLUSION: Severe hydronephrosis of the left kidney with a dilated hydroureter. 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 No evidence of bowel obstruction. Small bilateral pleural effusions. Cole Leach MD Physical Exam CONSTITUTIONAL/GENERAL: This is an adequately nourished patient, in no apparent distress. TUBES/LINES/DRAINS: SKIN: No jaundice, rashes, or lesions. HEAD: Atraumatic. Normocephalic. EYES: Pupils equal and round and reactive. Extraocular motions intact. No scleral icterus. No injection or drainage. Fundi not examined. ENT: Hearing not tested. Nose without bleeding or purulent drainage. Throat without visible erythema, exudates, masses, or lesions. NECK: Trachea midline. Supple, nontender. CARDIOVASCULAR: Regular rate and rhythm 3/6 systolic murmur No JVD. Peripheral pulses symmetric. RESPIRATORY/CHEST: Symmetric, unlabored respirations. Clear to auscultation. Breath sounds equal bilaterally. No wheezes, rales, or rhonchi. GASTROINTESTINAL: Abdomen soft, no reaction to palpation + distended. No hepato- splenomegaly, or palpable masses. No guarding. Bowel sounds present. GENITOURINARY: Without palpable bladder distension. Fragoso catheter in place with minimal red urine Nephrostomy in place with serosangious fluid Cyanotic scrotum MUSCULOSKELETAL: Extremities without clubbing, + prominent cyanosis, cold to touch No refill on must finger tips less prominent toes cyanosis no edema. NEUROLOGICAL: sedated, intubated, unresponsive PSYCHIATRIC: unable to assess Assessment & Plan Remarks Severe sepsis from complicated UTI, PSAE Obstructive uropathy sp R nephrostomy placement Multi organ system failure ESRD Bladder ca Acute VDRF Severe lactic acidosis with circulatory collapse NSTEMI Critically ill, unstable Very poor prognosis cont zosyn will follow sensitivities Discussed Condition With Dr Aubrey Ribeiro,Charisma Rain MD Jul 24, 2017 23:33
[2017-07-25] VITALS: BP_SYST 125; BP_SYST 127; BP_DIAS 36; BP_DIAS 60; PULSE 59; PULSE 60; RESP 29; TEMP 98.5
[2017-07-25] MEDS: HYDROCORTISONE SOD SUCCINATE 100 MG VIAL IV PUSH SCH (00:02)
[2017-07-25 02:00] VITALS: PULSE 59
[2017-07-25] MEDS: PIPERACIL-TAZO 2.25 GM PREMIX 50 ML IV SCH (02:03)
[2017-07-25] MEDS: fentaNYL DRIP 250 ML IV PRN (02:03)
[2017-07-25 03:19] VITALS: O2SAT 92
[2017-07-25] MEDS: RESP: ALBUTEROL 2.5 MG/IPRATROPIUM 0.5 MG NEB (SCH) INH (03:26)
[2017-07-25 03:41] VITALS: BP 99/36
[2017-07-25] MEDS: DOPamine INJ PREMIX 500 ML IV PRN (03:41)
[2017-07-25 04:00] VITALS: PULSE 59
[2017-07-25] MEDS ORDERED: SODIUM BICARBONATE 8.4% INJ 50 MEQ/50 ML SYR IV ONE (07:49)
[2017-07-25] MEDS ORDERED: EPINEPHrine HCL (1:10,000) 1 MG/10 ML SYRINGE IV ONE (07:49)
== END 2017-07-25 07:50 | disposition expired | DRG 871 ==
LOC: NEPE 18:00 → NEDA 20:39 → N03A 22:49
PROVIDERS: ADMIT Internal Medicine Critical Care Medicine; ATTEND Internal Medicine Critical Care Medicine
PROC: 3E0F7GC Introduction of Other Therapeutic Substance into Respiratory Tract, Via Natural or Artificial Opening (ICD-10-PCS; principal; 2017-07-22)
PROC: 04HY32Z Insertion of Monitoring Device into Lower Artery, Percutaneous Approach (ICD-10-PCS; 2017-07-23)
PROC: 05HN33Z Insertion of Infusion Device into Left Internal Jugular Vein, Percutaneous Approach (ICD-10-PCS; 2017-07-23)
PROC: 5A1945Z Respiratory Ventilation, 24-96 Consecutive Hours (ICD-10-PCS; 2017-07-23)
PROC: 0BH17EZ Insertion of Endotracheal Airway into Trachea, Via Natural or Artificial Opening (ICD-10-PCS; 2017-07-23)
PROC: 4A133B1 Monitoring of Arterial Pressure, Peripheral, Percutaneous Approach (ICD-10-PCS; 2017-07-23)
PROC: 4A133J1 Monitoring of Arterial Pulse, Peripheral, Percutaneous Approach (ICD-10-PCS; 2017-07-23)
PROC: 5A1D70Z Performance of Urinary Filtration, Intermittent, Less than 6 Hours Per Day (ICD-10-PCS; 2017-07-23)
PROC: 0T9B70Z Drainage of Bladder with Drainage Device, Via Natural or Artificial Opening (ICD-10-PCS; 2017-07-23)
PROC: 0T9430Z Drainage of Left Kidney Pelvis with Drainage Device, Percutaneous Approach (ICD-10-PCS; 2017-07-23)
DX: A41.52 Sepsis due to Pseudomonas (principal); I50.23 Acute on chronic systolic (congestive) heart failure; J96.01 Acute respiratory failure with hypoxia; I21.4 Non-ST elevation (NSTEMI) myocardial infarction; R65.21 Severe sepsis with septic shock; I42.9 Cardiomyopathy, unspecified; N18.6 End stage renal disease; E87.4 Mixed disorder of acid-base balance; I13.2 Hypertensive heart and chronic kidney disease with heart failure and with stage 5 chronic kidney disease, or end stage renal disease; N13.30 Unspecified hydronephrosis; N39.0 Urinary tract infection, site not specified; E11.22 Type 2 diabetes mellitus with diabetic chronic kidney disease; E11.649 Type 2 diabetes mellitus with hypoglycemia without coma; H91.90 Unspecified hearing loss, unspecified ear; Z79.82 Long term (current) use of aspirin; M19.90 Unspecified osteoarthritis, unspecified site; I25.10 Atherosclerotic heart disease of native coronary artery without angina pectoris; Z99.2 Dependence on renal dialysis; G47.30 Sleep apnea, unspecified; F17.290 Nicotine dependence, other tobacco product, uncomplicated; E78.5 Hyperlipidemia, unspecified; I48.91 Unspecified atrial fibrillation; Z95.810 Presence of automatic (implantable) cardiac defibrillator; Z95.1 Presence of aortocoronary bypass graft; Z96.653 Presence of artificial knee joint, bilateral; Z87.01 Personal history of pneumonia (recurrent); Z85.51 Personal history of malignant neoplasm of bladder; Z51.5 Encounter for palliative care; I46.9 Cardiac arrest, cause unspecified; N36.8 Other specified disorders of urethra; N32.9 Bladder disorder, unspecified; N40.0 Benign prostatic hyperplasia without lower urinary tract symptoms; H40.9 Unspecified glaucoma; Z79.01 Long term (current) use of anticoagulants
CPT/HCPCS: 31500; 36430; 36600; 50432; 71045; 71275; 74176; 80048; 80053; 80202; 81001; 82805; 82948; 83605; 83735; 84100; 84484; 85007; 85025; 85027; 85610; 86850; 86900; 86901; 86920; 87040; 87070; 87077; 87086; 87186; 87205; 87641; 90935; 92950; 93005; 93306; 94002; 94003; 94640; 94664; 96365; 96374; 96375; C1729; C1894; J0171; J0610; J1250; J1265; J1644; J1720; J1940; J2250; J2543; J3010; J3370; J7030; J7050; J7060; J7070; J7613; P9016; P9047; Q4081; Q9967